=== PATIENT | male | born 1985 | race American Indian/Alaskan Native ===

== ENCOUNTER 2016-11-22 14:37 | Emergency (ER) | payer SELFPAY ==
[2016-11-22 15:35] VITALS: BP 123/95
[2016-11-22 15:57] LABS: Hemoglobin 15.1 gm/dl (11.8-15.2); Mean Corpuscular HGB Conc 33 % (32-34); Mean Corpuscular Hemoglobin 29 pg (28-32); Mean Corpuscular Volume 89 fl (84-94); Platelet Count 165 K/mm3 (140-440); Red Blood Count 5.19 M/mm3 (3.65-5.03); Red Cell Distribution Width 16.3 % (13.2-15.2); White Blood Count 4.8 K/mm3 (4.5-11.0)
[2016-11-22 16:12] LABS: Albumin 4.1 g/dL (3.9-5); Albumin/Globulin Ratio 0.8 %; BUN/Creatinine Ratio 11.37; Bilirubin,Total 0.5 mg/dL (0.1-1.2); Calcium 9.6 mg/dL (8.4-10.2); Chloride 98.3 mmol/L (98-107); Potassium 4.2 mmol/L (3.6-5.0); Total Protein 9.3 g/dL (6.3-8.2)
[2016-11-22 16:24] LABS: Bilirubin,Urine NEG (Negative); Blood,Urine NEG (Negative); Ketones,Urine TR mg/dL (Negative); Leukocyte Esterase,Urine MOD (Negative); Mucus,Urine FEW /HPF; Nitrite,Urine NEG (Negative); Urobilinogen,Urine < 2.0 mg/dL (<2.0)
[2016-11-22 18:43] LABS: Blastocytes % (Manual) 0 %; Eosinophils % (Manual) 0 % (0.0-4.3)
[2016-11-22 18:44] LABS: Anisocytosis 1+; Diff Status Complete; Platelet Estimate Consistent w Auto; Poikilocytosis 1+
== END 2016-11-22 20:35 | disposition left against medical advice (07) ==
LOC: ED 14:37
DX: R10.9 Unspecified abdominal pain (principal); R11.2 Nausea with vomiting, unspecified; Z53.21 Procedure and treatment not carried out due to patient leaving prior to being seen by health care provider
CPT/HCPCS: 36415; 80053; 81001; 83690; 85007; 85025

== ENCOUNTER 2017-09-17 09:42 | Emergency (ER) | payer SELFPAY ==
[2017-09-17 10:39] LABS: Basophils % (Auto) 0.7 % (0.0-1.8); Hematocrit 38.7 % (35.5-45.6); Hemoglobin 13.1 gm/dl (11.8-15.2); Lymphocytes # (Auto) 0.7 K/mm3 (1.2-5.4); Lymphocytes % (Auto) 17.6 % (13.4-35.0); Mean Corpuscular HGB Conc 34 % (32-34); Mean Corpuscular Hemoglobin 29 pg (28-32); Mean Corpuscular Volume 84 fl (84-94); Monocytes # (Auto) 0.6 K/mm3 (0.0-0.8); Monocytes % (Auto) 15.2 % (0.0-7.3); Platelet Count 184 K/mm3 (140-440); Red Blood Count 4.61 M/mm3 (3.65-5.03); Red Cell Distribution Width 13.6 % (13.2-15.2)
[2017-09-17 10:54] LABS: BUN/Creatinine Ratio 8; Blood Urea Nitrogen 22 mg/dL (9-20); Calcium 8.5 mg/dL (8.4-10.2); Hemolysis Index 9
--- NOTE | 2017-09-17 12:25 | XRay Report ---
ROUTINE CHEST, TWO VIEWS: HISTORY: Shortness of breath, HIV. The trachea, heart, mediastinal contour, lung colvin and bony thorax are unremarkable. IMPRESSION: Unremarkable chest x-ray. No significant change since 02/10/16.
--- NOTE | 2017-09-17 13:05 | Emergency Department Report ---
ED Chest Pain HPI - General Chief Complaint: Upper Respiratory Infection Stated Complaint: CHEST COMPLICATIONS/LUNGS HURT Time Seen by Provider: 09/17/17 12:53 Source: patient Mode of arrival: Ambulatory Limitations: No Limitations - History of Present Illness Initial Comments: Patient is 32 years old male with past medical history of chronic kidney disease that was not being followed by any kidney doctor. Patient presented with epigastric and substernal chest pain that's been going on for 3 weeks now. Patient describes his pain as a burning sensation that go all the way up to his throat. Patient denied any left-sided or right-sided chest pain no shortness of breath, no fever, no nausea or vomiting. MD Complaint: chest pain - Related Data Previous Rx's Medication Instructions Recorded Last Taken Type Fluticasone [Flonase] 2 spray NS QDAY #1 bottle 08/11/15 Unknown Rx Loratadine [Claritin] 10 mg PO DAILY #30 tablet 08/11/15 Unknown Rx Acetaminophen/Codeine [Tylenol #3] 1 tab PO Q6H PRN #10 tab 09/14/15 Unknown Rx Albuterol Sulfate [Ventolin HFA] 2 puff IH Q4H PRN #1 hfa.aer.ad 02/10/16 Unknown Rx Azithromycin [Zithromax Z-SHANI] 1 dose PO DAILY 5 Days tab 02/10/16 Unknown Rx Benzonatate [Tessalon Perles] 100 mg PO Q8HR #30 capsule 02/10/16 Unknown Rx Ibuprofen [Motrin 800 MG tab] 800 mg PO Q8HR PRN #30 tablet 02/10/16 Unknown Rx Prednisone [predniSONE 10 mg 10 mg PO .TAPER #1 tab.ds.pk 02/10/16 Unknown Rx (6-Day Pack, 21 Tabs)] Esomeprazole Magnesium [NexIUM] 40 mg PO QDAY #30 capsule. 09/17/17 Unknown Rx Allergies Allergy/AdvReac Type Severity Reaction Status Date / Time No Known Allergies Allergy Verified 11/22/16 15:32 Heart Score - HEART Score History: Slightly suspicious EKG: Non-specific Age: < 45 Risk factors: 1-2 risk factors Troponin: < normal limit HEART Score: 2 - Critical Actions Critical Actions: 0-3 pts:0.9-1.7%risk of adverse cardiac event.Candidate for discharge ED Review of Systems ROS: Stated complaint: CHEST COMPLICATIONS/LUNGS HURT Other details as noted in HPI Comment: All other systems reviewed and negative Constitutional: denies: chills, fever Respiratory: denies: cough, orthopnea, shortness of breath Cardiovascular: chest pain. denies: palpitations, dyspnea on exertion Gastrointestinal: denies: abdominal pain, nausea, vomiting ED Past Medical Hx - Past Medical History Previous Medical History?: Yes Hx Headaches / Migraines: Yes Additional medical history: HIV - Surgical History Past Surgical History?: No - Social History Smoking Status: Current Every Day Smoker Substance Use Type: Alcohol - Medications Home Medications: Home Medications Medication Instructions Recorded Confirmed Last Taken Type Fluticasone [Flonase] 2 spray NS QDAY #1 bottle 08/11/15 Unknown Rx Loratadine [Claritin] 10 mg PO DAILY #30 tablet 08/11/15 Unknown Rx Acetaminophen/Codeine [Tylenol #3] 1 tab PO Q6H PRN #10 tab 09/14/15 Unknown Rx Albuterol Sulfate [Ventolin HFA] 2 puff IH Q4H PRN #1 hfa.aer.ad 02/10/16 Unknown Rx Azithromycin [Zithromax Z-SHANI] 1 dose PO DAILY 5 Days tab 02/10/16 Unknown Rx Benzonatate [Tessalon Perles] 100 mg PO Q8HR #30 capsule 02/10/16 Unknown Rx Ibuprofen [Motrin 800 MG tab] 800 mg PO Q8HR PRN #30 tablet 02/10/16 Unknown Rx Prednisone [predniSONE 10 mg 10 mg PO .TAPER #1 tab.ds.pk 02/10/16 Unknown Rx (6-Day Pack, 21 Tabs)] Esomeprazole Magnesium [NexIUM] 40 mg PO QDAY #30 capsule.dr 09/17/17 Unknown Rx ED Physical Exam - General Limitations: No Limitations General appearance: alert, in no apparent distress - Head Head exam: Present: atraumatic, normocephalic - Eye Eye exam: Present: normal appearance, PERRL - ENT ENT exam: Present: normal exam, normal orophraynx, mucous membranes moist - Neck Neck exam: Present: normal inspection, full ROM. Absent: tenderness, meningismus - Respiratory Respiratory exam: Present: normal lung sounds bilaterally, chest wall tenderness (sternal tenderness). Absent: respiratory distress, wheezes, rales, rhonchi - Cardiovascular Cardiovascular Exam: Present: regular rate, normal rhythm, normal heart sounds - GI/Abdominal GI/Abdominal exam: Present: soft, normal bowel sounds. Absent: distended, tenderness, guarding, rebound, rigid - Extremities Exam Extremities exam: Present: normal inspection, full ROM, normal capillary refill - Back Exam Back exam: Present: normal inspection, full ROM. Absent: CVA tenderness (R), CVA tenderness (L) - Neurological Exam Neurological exam: Present: alert, oriented X3, CN II-XII intact, normal gait - Psychiatric Psychiatric exam: Present: normal affect - Skin Skin exam: Present: warm, intact, normal color ED Course Vital Signs 09/17/17 09:49 Temperature 98.7 F Pulse Rate 89 Respiratory 16 Rate Blood Pressure 122/94 O2 Sat by Pulse 98 Oximetry - Reevaluation(s) Reevaluation #1: 09/17/17 13:03 I had a lengthy discussion with the patient about his creatinine and his chronic kidney status. Patient previous creatinine was 2.9 and today is 2.7. Patient stated that he is not following with any patient for this. I discussed with him the risk of not following out with the kidney doctor. Patient understands the seriousness of his kidney issue and he stated that he will work on getting a kidney doctor very soon. Meanwhile I advised patient to avoid all NSAIDs. 09/17/17 13:05 ED Medical Decision Making - Lab Data Result diagrams: 09/17/17 10:14 09/17/17 10:14 - EKG Data -: EKG Interpreted by Me EKG shows normal: sinus rhythm Rate: normal - EKG Data When compared to previous EKG there are: no significant change - Radiology Data Radiology results: report reviewed Chest x-ray is unremarkable Critical care attestation.: If time is entered above; I have spent that time in minutes in the direct care of this critically ill patient, excluding procedure time. ED Disposition Clinical Impression: Chest pain, GERD (gastroesophageal reflux disease) Disposition: -01 TO HOME OR SELFCARE Is pt being admited?: No Condition: Stable Instructions: Chest Pain (ED), Gastroesophageal Reflux in Children (ED), Chronic Kidney Disease (ED) Prescriptions: Esomeprazole Magnesium [NexIUM] 40 mg PO QDAY #30 capsule.dr Referrals: ESTHER STEPHENSON MD [Staff Physician] - 3-5 Days
[2017-09-17 20:53] VITALS: BP 133/70
== END 2017-09-17 13:14 | disposition home or self-care (01) ==
LOC: ED 09:42
DX: K21.9 Gastro-esophageal reflux disease without esophagitis (principal); G43.909 Migraine, unspecified, not intractable, without status migrainosus; F17.200 Nicotine dependence, unspecified, uncomplicated
CPT/HCPCS: 36415; 71046; 80048; 84484; 85025; 99284

== ENCOUNTER 2020-05-01 11:39 | Observation (INO) | payer MEDICARE ==
[2020-05-01] MEDS ORDERED: levETIRAcetam 1000 MG/NS 0.75% 1,000 MG/100 ML BAG IV ONE ×2 (11:50→11:51)
--- NOTE | 2020-05-01 12:20 | XRay Report ---
CHEST 1 VIEW INDICATION / CLINICAL INFORMATION: seizure. COMPARISON: 09/17/2017 FINDINGS: SUPPORT DEVICES: Interval placement of right-sided dual-lumen dialysis catheter with its tip projecte d over the right atrium. HEART / MEDIASTINUM: Stable. LUNGS / PLEURA: Interval development of central pulmonary vascular congestion and bilateral perihilar edema. No pneumothorax. ADDITIONAL FINDINGS: No significant additional findings. IMPRESSION: 1. Interval placement of right-sided dual-lumen dialysis catheter which needs retraction approximatel y 5 cm for proper positioning. 2. Interval development of central pulmonary vascular congestion and bilateral perihilar pulmonary ed adam. Signer Name: Isaiah Bright MD Signed: 05/01/2020 12:15 PM Workstation Name: [id number]
[2020-05-01 12:34] LABS: Hematocrit 36.1 % (35.5-45.6); Hemoglobin 11.7 gm/dl (11.8-15.2); Mean Corpuscular HGB Conc 32 % (32-34); Mean Corpuscular Volume 89 fl (84-94); Platelet Count 106 K/mm3 (140-440); Red Blood Count 4.05 M/mm3 (3.65-5.03)
--- NOTE | 2020-05-01 12:39 | Emergency Department Report ---
ED General Adult HPI - General Chief complaint: Seizure Stated complaint: SEIZURE Time Seen by Provider: 05/01/20 11:48 Source: EMS Mode of arrival: Stretcher Limitations: Altered Mental Status - History of Present Illness Initial comments: Patient is a 35-year-old F Bel[place]ian male with past medical history of end-stage renal disease, HIV who is presenting status post seizure. Paramedics were called to the hospital because of the patient was complaining of headache and shortness of breath. On their arrival patient had a tonic-clonic seizure. Is questionable whether the patient has a seizure history from the bystanders there was there. He was given Ativan and Versed. Patient apparently had not had dialysis for approximately 2 weeks. Reason for being noncompliant was unknown. Is unknown any other additional history at this time. Patient is is been sedated and is postictal on his arrival. - Related Data Home Medications Medication Instructions Recorded Confirmed Last Taken Calcium Acetate 650 mg PO TID 02/20/20 04/09/20 Unknown Darunavir [Prezista] 800 mg PO DAILY 02/20/20 04/09/20 Unknown Dolutegravir [Tivicay] 50 mg PO DAILY 02/20/20 04/09/20 Unknown Ritonavir 100 mg PO DAILY 02/20/20 04/09/20 Unknown Sodium Bicarbonate 650 mg PO TID 02/20/20 04/09/20 Unknown amLODIPine 5 mg PO DAILY 02/20/20 04/09/20 Unknown Allergies Allergy/AdvReac Type Severity Reaction Status Date / Time abacavir AdvReac Unknown Unknown Verified 03/24/20 16:23 ED Review of Systems ROS: Stated complaint: SEIZURE Other details as noted in HPI Comment: Unobtainable due to pts medical conditions ED Past Medical Hx - Past Medical History Previous Medical History?: Yes Hx Hypertension: Yes Hx Heart Attack/AMI: No Hx Congestive Heart Failure: No Hx Diabetes: No Hx GERD: Yes Hx Liver Disease: No Hx Sickle Cell Disease: No Hx Headaches / Migraines: Yes Hx Seizures: Yes Hx Asthma: No Hx COPD: No Hx Tuberculosis: No Hx HIV: Yes Additional medical history: HIV, ESRD, Hemodialysis - Social History Smoking Status: Unknown if ever smoked - Medications Home Medications: Home Medications Medication Instructions Recorded Confirmed Last Taken Type Calcium Acetate 650 mg PO TID 02/20/20 04/09/20 Unknown History Darunavir [Prezista] 800 mg PO DAILY 02/20/20 04/09/20 Unknown History Dolutegravir [Tivicay] 50 mg PO DAILY 02/20/20 04/09/20 Unknown History Ritonavir 100 mg PO DAILY 02/20/20 04/09/20 Unknown History Sodium Bicarbonate 650 mg PO TID 02/20/20 04/09/20 Unknown History amLODIPine 5 mg PO DAILY 02/20/20 04/09/20 Unknown History ED Physical Exam - General Limitations: Altered Mental Status General appearance: in no apparent distress, postictal, other (Patient will localize to pain with sternal rub. He is maintaining his airway.) - Head Head exam: Present: atraumatic, normocephalic - Eye Eye exam: Present: normal appearance - ENT ENT exam: Present: mucous membranes moist - Neck Neck exam: Present: normal inspection - Respiratory Respiratory exam: Present: respiratory distress, rales. Absent: normal lung sounds bilaterally, wheezes, rhonchi - Cardiovascular Cardiovascular Exam: Present: normal rhythm, tachycardia. Absent: systolic murmur, diastolic murmur, rubs, gallop - GI/Abdominal GI/Abdominal exam: Present: soft, normal bowel sounds. Absent: distended, tenderness, guarding, rebound - Rectal Rectal exam: Present: deferred - Extremities Exam Extremities exam: Present: normal inspection - Back Exam Back exam: Present: normal inspection - Neurological Exam Neurological exam: Present: alert, altered, other (Moving all extremities) - Skin Skin exam: Present: warm, dry, intact, normal color. Absent: rash ED Course Vital Signs 05/01/20 05/01/20 05/01/20 11:42 11:46 11:53 Temperature Pulse Rate 139 H 136 H 123 H Respiratory 21 17 20 Rate Blood Pressure O2 Sat by Pulse 95 98 91 Oximetry 05/01/20 05/01/20 05/01/20 12:00 12:02 12:15 Temperature 99.1 F Pulse Rate 117 H 130 H 104 H Respiratory 23 20 12 Rate Blood Pressure 186/121 184/113 O2 Sat by Pulse 100 100 Oximetry 05/01/20 05/01/20 12:30 12:50 Temperature Pulse Rate 115 H 115 H Respiratory 19 Rate Blood Pressure 190/122 O2 Sat by Pulse 100 Oximetry ED Medical Decision Making - Lab Data Result diagrams: 05/01/20 12:04 05/01/20 12:04 Lab Results 05/01/20 05/01/20 05/01/20 Range/Units 12:04 12:04 12:04 WBC 10.2 (4.5-11.0) K/mm3 RBC 4.05 (3.65-5.03) M/mm3 Hgb 11.7 L (11.8-15.2) gm/dl Hct 36.1 (35.5-45.6) % MCV 89 (84-94) fl MCH 29 (28-32) pg MCHC 32 (32-34) % RDW 18.0 H (13.2-15.2) % Plt Count 106 L (140-440) K/mm3 Seg Neutrophils % Gis Software Developer Sodium 139 (137-145) mmol/L Potassium 7.0 H* (3.6-5.0) mmol/L Chloride 98.3 (98-107) mmol/L Carbon Dioxide 14 L (22-30) mmol/L Anion Gap 34 mmol/L BUN 109 H (9-20) mg/dL Creatinine 29.9 H (0.8-1.3) mg/dL Estimated GFR 2 ml/min BUN/Creatinine Ratio 4 % Glucose 95 (75-100) mg/dL Calcium 10.2 (8.4-10.2) mg/dL Total Bilirubin 0.30 (0.1-1.2) mg/dL AST 15 (5-40) units/L ALT 6 L (7-56) units/L Alkaline Phosphatase 64 (35-129) units/L Total Protein 8.1 (6.3-8.2) g/dL Albumin 3.6 L (3.9-5) g/dL Albumin/Globulin Ratio 0.8 % Urine Color (Yellow) Urine Turbidity (Clear) Urine pH (5.0-7.0) Ur Specific [place] (1.003-1.030) Urine Protein (Negative) mg/dL Urine Glucose (UA) (Negative) mg/dL Urine Ketones (Negative) mg/dL Urine Blood (Negative) Urine Nitrite (Negative) Urine Bilirubin (Negative) Urine Urobilinogen (<2.0) mg/dL Ur Leukocyte Esterase (Negative) Urine WBC (Auto) (0.0-6.0) /HPF Urine RBC (Auto) (0.0-6.0) /HPF U Epithel Cells (Auto) (0-13.0) /HPF Urine Opiates Screen Urine Methadone Screen Ur Barbiturates Screen Ur Phencyclidine Scrn Ur Amphetamines Screen U Benzodiazepines Scrn Urine Cocaine Screen U Marijuana (THC) Screen Drugs of Abuse Note Plasma/Serum Alcohol < 0.01 (0-0.07) % 05/01/20 05/01/20 Range/Units 12:15 12:15 WBC (4.5-11.0) K/mm3 RBC (3.65-5.03) M/mm3 Hgb (11.8-15.2) gm/dl Hct (35.5-45.6) % MCV (84-94) fl MCH (28-32) pg MCHC (32-34) % RDW (13.2-15.2) % Plt Count (140-440) K/mm3 Seg Neutrophils % Sodium (137-145) mmol/L Potassium (3.6-5.0) mmol/L Chloride (98-107) mmol/L Carbon Dioxide (22-30) mmol/L Anion Gap mmol/L BUN (9-20) mg/dL Creatinine (0.8-1.3) mg/dL Estimated GFR ml/min BUN/Creatinine Ratio % Glucose (75-100) mg/dL Calcium (8.4-10.2) mg/dL Total Bilirubin (0.1-1.2) mg/dL AST (5-40) units/L ALT (7-56) units/L Alkaline Phosphatase (35-129) units/L Total Protein (6.3-8.2) g/dL Albumin (3.9-5) g/dL Albumin/Globulin Ratio % Urine Color Yellow (Yellow) Urine Turbidity Clear (Clear) Urine pH 7.0 (5.0-7.0) Ur Specific [place] 1.013 (1.003-1.030) Urine Protein >500 (Negative) mg/dL Urine Glucose (UA) 150 (Negative) mg/dL Urine Ketones Neg (Negative) mg/dL Urine Blood Sm (Negative) Urine Nitrite Neg (Negative) Urine Bilirubin Neg (Negative) Urine Urobilinogen < 2.0 (<2.0) mg/dL Ur Leukocyte Esterase Tr (Negative) Urine WBC (Auto) 16.0 H (0.0-6.0) /HPF Urine RBC (Auto) 3.0 (0.0-6.0) /HPF U Epithel Cells (Auto) < 1.0 (0-13.0) /HPF Urine Opiates Screen Negative Urine Methadone Screen Negative Ur Barbiturates Screen Negative Ur Phencyclidine Scrn Negative Ur Amphetamines Screen Negative U Benzodiazepines Scrn Negative Urine Cocaine Screen Positive U Marijuana (THC) Screen Negative Drugs of Abuse Note Disclamer Plasma/Serum Alcohol (0-0.07) % no hemolysis - EKG Data -: EKG Interpreted by Fl - EKG Data 05/01/20 13:21 EKG shows a sinus tachycardia rate of 123. [place] is normal intervals are normal. There is evidence of LVH. Peak T waves in V3 and V4. Time of interpretation 1155 - Radiology Data Patient: HOLLY PRESTON MR# : [id number] : 1985 Acct:[id number] Age/Sex: 35 / M ADM Date: 05/01/20 Loc: ED Attending Dr: Ordering Physician: BHUMIKA DOZIER MD Date of Service: 05/01/20 Procedure(s): XR chest 1V ap Accession Number(s): [id number] cc: BHUMIKA DOZIER MD Fluoro Time In Minutes: CHEST 1 VIEW INDICATION / CLINICAL INFORMATION: seizure. COMPARISON: 09/17/2017 FINDINGS: SUPPORT DEVICES: Interval placement of right-sided dual-lumen dialysis catheter with its tip projected over the right atrium. HEART / MEDIASTINUM: Stable. LUNGS / PLEURA: Interval development of central pulmonary vascular congestion and bilateral perihilar edema. No pneumothorax. ADDITIONAL FINDINGS: No significant additional findings. IMPRESSION: 1. Interval placement of right-sided dual-lumen dialysis catheter which needs retraction approximately 5 cm for proper positioning. 2. Interval development of central pulmonary vascular congestion and bilateral perihilar pulmonary edema. Signer Name: Isaiah Bright MD Signed: 05/01/2020 12:15 PM Workstation Name: [id number] - Medical Decision Making Patient is remained in a postictal state during his ER visit. Patient was given 2 mg of Ativan and 5 mg of Versed prior to his arrival. Patient noted to be hypertensive was given labetalol. Patient is placed on oxygen for O2 sat of 92% on room air. Patient loaded with Keppra. Patient is potassium was elevated at 7 with no hemolysis and his hyperkalemia will be treated. Nephrology has been consulted and will dialyze the patient. CT head has been performed I do not see any evidence of any intracranial hemorrhage. Patient will be admitted to hospitalist service. Critical Care Time: Yes (30) Critical care attestation.: If time is entered above; I have spent that time in minutes in the direct care of this critically ill patient, excluding procedure time. ED Disposition Clinical Impression: Seizure, Post-ictal confusion, End-stage renal disease needing dialysis, Hyperkalemia Pulmonary edema Qualifiers: Chronicity: acute Qualified Code(s): J81.0 - Acute pulmonary edema Cocaine intoxication Qualifiers: Complication of substance-induced condition: with unspecified complication Qualified Code(s): F14.929 - Cocaine use, unspecified with intoxication, unspecified Disposition: DC-09 OP ADMIT IP TO THIS HOSP Is pt being admited?: Yes Does the pt Need Aspirin: No Condition: Stable Time of Disposition: 13:28
[2020-05-01 12:47] LABS: Amphetamine Screen,Urine Negative; Benzodiazepines Screen,Urine Negative; Cannabinoid Screen,Urine Negative; Methadone Screen,Urine Negative; Opiate Screen,Urine Negative
[2020-05-01 12:56] LABS: Albumin 3.6 g/dL (3.9-5); Calcium 10.2 mg/dL (8.4-10.2)
[2020-05-01 13:03] LABS: Cocaine Screen,Urine Positive
[2020-05-01 13:04] LABS: Bilirubin,Urine NEG (Negative); Blood,Urine SM (Negative); Color,Urine Yellow (Yellow); Urobilinogen,Urine < 2.0 mg/dL (<2.0)
[2020-05-01] MEDS ORDERED: SODIUM BICARB 8.4% 50 MEQ/50 ML SYRINGE IV ONE (13:04)
[2020-05-01] MEDS ORDERED: ALBUTEROL 2.5 MG/3 ML NEBU IH ONE (13:04)
[2020-05-01] MEDS ORDERED: DEXTROSE 50% IN WATER (25GM) 50 ML SYRINGE IV ONE (13:04)
[2020-05-01] MEDS ORDERED: INSULIN REGULAR, HUMAN 100 UNIT/ML 3ML VIAL IV ONE (13:04)
[2020-05-01 13:08] LABS: Protein,Urine >500 mg/dL (Negative)
--- NOTE | 2020-05-01 13:14 | Cat Scan Report ---
CT HEAD WITHOUT CONTRAST INDICATION: seizure TECHNIQUE: All CT scans at this location are performed using CT dose reduction for ALARA by means of automated exposure control. COMPARISON: 02/10/2016 FINDINGS: BRAIN: No hemorrhage or mass effect are seen. No evidence of acute infarction is noted. ORBITS: Normal as visualized. SOFT TISSUES OF HEAD: Slight soft tissue swelling is seen in the upper right vertex scalp without und erlying fracture CALVARIUM: Normal. VISUALIZED PARANASAL SINUSES AND MASTOID AIR CELLS: Clear. ADDITIONAL FINDINGS: None. IMPRESSION: No acute intracranial abnormality. Signer Name: Cachorro Tejada MD Signed: 05/01/2020 1:10 PM Workstation Name: [id number]
[2020-05-01] MEDS ORDERED: SODIUM CHLORIDE 0.9% 100 ML IV PRN (13:15)
[2020-05-01] MEDS: CALCIUM CHLORIDE 1,000 MG in SODIUM CHLORIDE 0.9% 100 ML IV ONE ×2 (13:24→14:04)
[2020-05-01] MEDS ORDERED: INSULIN REGULAR, HUMAN 100 UNITS/1 ML ONE (13:30)
[2020-05-01 14:17] LABS: Hepatitis B Surface Antigen Non-Reactive (Negative); Hepatitis C Virus Antibody Non-Reactive (NonReactive)
[2020-05-01 14:53] LABS: Basophils % (Manual) 0 % (0.0-1.8); Total Cells Counted 100
[2020-05-01 14:54] LABS: Anisocytosis Few; Platelet Estimate Consistent w Auto
--- NOTE | 2020-05-01 14:56 | History and Physical Report ---
History of Present Illness Date of examination: 05/01/20 Date of admission: 05/01/20 14:23 Chief complaint: Seizures/hyperkalemia History of present illness: When I evaluated the patient patient was lethargic noncommunicative , unable to give history , no family available Details are obtained from ER note 35-year-old -[place] male patient with significant history of end-stage renal disease on hemodialysis HIV on antiretroviral medications Hypertension, cocaine use presented to the emergency room with history of seizure episode, patient was postictal when seen by the emergency room CT head without contrast was negative for acute abnormality, patient received IV Keppra, patient also had severe hyperkalemia , and very high creatinine evaluated by nephrology, and was scheduled for an emergency hemodialysis As per ER note patient has missed his dialysis for 2 weeks for unknown reason As per records patient complained to the EMS people of headache and shortness of breath, and route patient developed tonic-clonic seizures Not sure with the patient has history of seizures prior to this episode. I have seen and examined the patient in the dialysis unit receiving hemodialysis. Patient is combative requiring restraints and confused Unable to get any history from him Vital signs are stable, patient is in mild distress Past History Past Medical History: dialysis, ESRD, GERD, HIV/AIDS, hypertension, migraines, seizures Past Surgical History: Other (AV fistula) Social history: other (Cocaine use) Family history: no significant family history Medications and Allergies Allergies Allergy/AdvReac Type Severity Reaction Status Date / Time abacavir AdvReac Unknown Unknown Verified 03/24/20 16:23 Home Medications Medication Instructions Recorded Confirmed Last Taken Type Calcium Acetate 650 mg PO TID 02/20/20 04/09/20 Unknown History Darunavir [Prezista] 800 mg PO DAILY 02/20/20 04/09/20 Unknown History Dolutegravir [Tivicay] 50 mg PO DAILY 02/20/20 04/09/20 Unknown History Ritonavir 100 mg PO DAILY 02/20/20 04/09/20 Unknown History Sodium Bicarbonate 650 mg PO TID 02/20/20 04/09/20 Unknown History amLODIPine 5 mg PO DAILY 02/20/20 04/09/20 Unknown History Active Meds: Active Medications Sodium Chloride (Nacl 0.9%) 100 mls @ 999 mls/hr IV ALTHEA PRN PRN Reason: Hypotension Review of Systems ROS unobtainable: due to mental status Exam - Constitutional Vitals: Temp Pulse Resp BP Pulse Ox 99.1 F 106 H 18 183/110 99 05/01/20 12:02 05/01/20 14:17 05/01/20 14:17 05/01/20 14:00 05/01/20 14:17 General appearance: Present: severe distress, other (Combative ,noncommunicative) - EENT Eyes: Present: PERRL, EOM intact - Neck Neck: Present: supple, normal ROM - Respiratory Respiratory effort: normal Respiratory: bilateral: diminished, rales - Cardiovascular Rhythm: regular Heart Sounds: Present: S1 & S2 - Extremities Extremities: no ischemia, No edema - Abdominal General gastrointestinal: Present: soft, non-tender, non-distended, normal bowel sounds - Integumentary Integumentary: Present: clear, warm - Musculoskeletal Musculoskeletal: other (Noncommunicative combative) - Psychiatric Psychiatric: agitated, other (Confused and combative) - Neurologic Neurologic: moves all extremities Results - Labs CBC & Chem 7: 05/01/20 12:04 05/01/20 12:04 Labs: Abnormal lab results 05/01/20 05/01/20 05/01/20 Range/Units 12:04 12:04 12:15 Hgb 11.7 L (11.8-15.2) gm/dl RDW 18.0 H (13.2-15.2) % Plt Count 106 L (140-440) K/mm3 Seg Neuts % (Manual) 91.0 H (40.0-70.0) % Lymphocytes % (Manual) 6.0 L (13.4-35.0) % Seg Neutrophils # Man 9.3 H (1.8-7.7) K/mm3 Lymphocytes # (Manual) 0.6 L (1.2-5.4) K/mm3 Potassium 7.0 H* (3.6-5.0) mmol/L Carbon Dioxide 14 L (22-30) mmol/L BUN 109 H (9-20) mg/dL Creatinine 29.9 H (0.8-1.3) mg/dL ALT 6 L (7-56) units/L Albumin 3.6 L (3.9-5) g/dL Urine WBC (Auto) 16.0 H (0.0-6.0) /HPF Assessment and Plan --Severe metabolic encephalopathy; Multifactorial, seizures, postictal stage Hyperkalemia, metabolic acidosis Treat the underlying cause, neurochecks Supportive care CT head; no acute abnormality noted --Seizure disorder; probably new onset Seizure precautions, CT head negative Ativan as needed, IV Keppra thousand twice daily Neurology service not available, consult neurology on Sunday Check EEG, patient cannot drive until cleared by neurology --Hyperkalemia; potassium 7.0 Secondary to end-stage renal disease Start hemodialysis, nephrology following --End-stage renal disease; on hemodialysis Not sure if patient was compliant Very high creatinine, nephrology following Start dialysis today, HD per schedule --Cocaine abuse; We will activities counselor the patient when stable Supportive care --Hypertension; moderate control Continue current antihypertensives, PRN medications --History of HIV; on antiretrovirals Will resume appropriate medications Consider ID evaluation if needed --Medical noncompliance; Patient is noncompliant with medications, diet Hemodialysis, follow-up visits We will activities counselor the patient and he is more stable the importance of adhering to the treatment plan --DC planning per case management --DVT prophylaxis; Heparin renal dose --Full CODE STATUS; We will closely monitor the patient and adjust the management as needed Lead Python Developer recommendations noted and appreciated We will try to contact the family for more information The high probability of a clinically significant, sudden or life threatening de terioration of the [Renal, SUPERVISORY AIR INTERCEPT CONTROLLER, ID, metabolic ] system(s) required my full and direct attention, in tervention and personal management. The aggregate critical care time was [32] minutes. This time is in addition to time spent performing reported procedures but includes the following: [x] Data Review and interpretation [x] Patient assessment and monitoring of vital signs [x] Documentation [x] Medication orders and management
[2020-05-01] MEDS ORDERED: LORazepam 2 MG/ML VIAL IV PRN (15:05)
--- NOTE | 2020-05-01 19:56 | Consultation ---
History of Present Illness - Reason for Consult Consult date: 05/01/20 end stage renal disease, hyperkalemia, metabolic acidosis - History of Present Illness The patient is a 35 YO AAM with history significant for HTN, ESRD on hemodialysis, HIV on antiretroviral medications and Cocaine use presented to [facility] ED with history of seizure episode. As per ER note patient has missed his dialysis for 2 weeks for unknown reason. Patient complained to the EMS of headache and shortness of breath, and route patient developed tonic-clonic seizures. In the ED patient was postictal, lethargic, noncommunicative and no family available hence unable to get any history. CT head without contrast was negative for acute abnormality. Patient received IV Keppra. Labs significant for hyperkalemia, metabolic acidosis and very high creatinine level. Nephrology was consulted for further evaluation and treatment. Past History Past Medical History: dialysis, ESRD, GERD, HIV/AIDS, hypertension, migraines, seizures Past Surgical History: Other (AV fistula) Social history: other (Cocaine use) Family history: no significant family history Medications and Allergies Allergies Allergy/AdvReac Type Severity Reaction Status Date / Time abacavir AdvReac Unknown Unknown Verified 03/24/20 16:23 Home Medications Medication Instructions Recorded Confirmed Last Taken Type Calcium Acetate 650 mg PO TID 02/20/20 04/09/20 Unknown History Darunavir [Prezista] 800 mg PO DAILY 02/20/20 04/09/20 Unknown History Dolutegravir [Tivicay] 50 mg PO DAILY 02/20/20 04/09/20 Unknown History Ritonavir 100 mg PO DAILY 02/20/20 04/09/20 Unknown History Sodium Bicarbonate 650 mg PO TID 02/20/20 04/09/20 Unknown History amLODIPine 5 mg PO DAILY 02/20/20 04/09/20 Unknown History Active Meds: Active Medications Calcium Acetate (Phoslo) 667 mg PO TIDWM AWA Heparin Sodium (Porcine) (Heparin) 5,000 unit SUB-Q Q12HR AWA Hydralazine HCl (Apresoline) 25 mg PO Q8HR AWA Sodium Chloride (Nacl 0.9%) 100 mls @ 999 mls/hr IV ALTHEA PRN PRN Reason: Hypotension Levetiracetam 1,000 mg/ (Dextrose) 110 mls @ 400 mls/hr IV Q12HR AWA Labetalol HCl (Labetalol) 10 mg IV Q4H PRN PRN Reason: Hypertension Last Admin: 05/01/20 19:06 Dose: 10 mg Documented by: Lorazepam (Ativan) 2 mg IV Q1H PRN PRN Reason: Seizures Nifedipine (Procardia Xl) 30 mg PO Q12HR AWA Pantoprazole Sodium (Protonix) 40 mg IV QDAY AWA Sodium Bicarbonate (Sodium Bicarbonate) 650 mg PO TID AWA Review of Systems ROS unobtainable: due to mental status Exam - Vital Signs Vital signs: Vital Signs Pulse Resp Pulse Ox 139 H 21 95 05/01/20 11:42 05/01/20 11:42 05/01/20 11:42 Results - Lab Results 05/01/20 12:04 05/01/20 12:04 Most recent lab results Calcium 10.2 mg/dL (8.4-10.2) 05/01/20 12:04 Assessment and Plan 1. ESRD: Patient is on maintenance hemodialysis three times a week. Currently his outpatient dialysis unit information was unavailable. Hemodialysis: 05/01. 2. FEN: Hyperkalemia, HD today. Metabolic acidosis, HD today. Monitor lytes and volume status. 3. Seizure: Keppra. 4. Uncontroleld Hypertension: UF with HD. Started on Nifedipine and Monitor BP. UF with HD. 5. Encephalopathy, POA: Likely post-ictal. 6. Anemia, POA: Likely 2/2 ESRD. Examination: The patient was not examined today. However the current and previous medical records are reviewed in detail as are laboratory and imaging data reviewed when appropriate. Medications being given are also reviewed. In addition the case has been discussed with the attending hospitalist when needed.Renalrecommendations as above. Total time spent 40 min.
[2020-05-01] MEDS: SODIUM BICARBONATE 650 MG TAB PO SCH (21:52)
[2020-05-01] MEDS: hydrALAZINE 25 MG TAB PO SCH (21:53)
[2020-05-01] MEDS: HEPARIN 5,000 UNIT/1 ML VIAL SUB-Q SCH (21:53)
[2020-05-01] MEDS: NIFEdipine XL 30 MG TAB PO SCH (21:53)
[2020-05-02] MEDS: levETIRAcetam 1,000 MG in DEXTROSE 5% IN WATER 100 ML IV SCH ×2 (01:02→10:07)
[2020-05-02 05:24] LABS: Basophils # (Auto) 0.1 K/mm3 (0.0-0.1); Basophils % (Auto) 1.1 % (0.0-1.8); Eosinophils # (Auto) 0.1 K/mm3 (0.0-0.4); Eosinophils % (Auto) 1.4 % (0.0-4.3); Hematocrit 37.9 % (35.5-45.6); Hemoglobin 12.8 gm/dl (11.8-15.2); Lymphocytes # (Auto) 0.9 K/mm3 (1.2-5.4); Lymphocytes % (Auto) 11.4 % (13.4-35.0); Mean Corpuscular HGB Conc 34 % (32-34); Mean Corpuscular Volume 87 fl (84-94); Monocytes # (Auto) 0.9 K/mm3 (0.0-0.8); Monocytes % (Auto) 10.9 % (0.0-7.3); Platelet Count 100 K/mm3 (140-440); Red Blood Count 4.35 M/mm3 (3.65-5.03); Red Cell Distribution Width 17.7 % (13.2-15.2)
[2020-05-02 06:00] LABS: Calcium 10.2 mg/dL (8.4-10.2)
[2020-05-02] MEDS: CALCIUM ACETATE 667 MG CAP PO SCH ×4 (07:39→12:13)
[2020-05-02] MEDS: hydrALAZINE 25 MG TAB PO SCH ×3 (07:46→14:44)
[2020-05-02] MEDS: SODIUM BICARBONATE 650 MG TAB PO SCH ×3 (07:47→14:44)
--- NOTE | 2020-05-02 09:05 | Progress Note ---
Assessment and Plan Assessment and plan: --Severe metabolic encephalopathy; Multifactorial, seizures, postictal stage Hyperkalemia, metabolic acidosis Treat the underlying cause, neurochecks Supportive care CT head; no acute abnormality noted --Seizure disorder; probably new onset Seizure precautions, CT head negative Ativan as needed, IV Keppra thousand twice daily Neurology service not available, consult neurology on Sunday Check EEG, patient cannot drive until cleared by neurology --Hyperkalemia; potassium 7.0 Secondary to end-stage renal disease Start hemodialysis, nephrology following --End-stage renal disease; on hemodialysis Not sure if patient was compliant Very high creatinine, nephrology following Start dialysis today, HD per schedule --Cocaine abuse; We will residential treatment counselor the patient when stable Supportive care --Hypertension; moderate control Continue current antihypertensives, PRN medications --History of HIV; on antiretrovirals Will resume appropriate medications Consider ID evaluation if needed --Medical noncompliance; Patient is noncompliant with medications, diet Hemodialysis, follow-up visits We will residential treatment counselor the patient and he is more stable the importance of adhering to the treatment plan --DC planning per case management --DVT prophylaxis; Heparin renal dose --Full CODE STATUS; We will closely monitor the patient and adjust the management as needed Park Interpretive Ranger recommendations noted and appreciated We will try to contact the family for more information The high probability of a clinically significant, sudden or life threatening deterioration of the [Renal, SECURITY STRATEGIST, ID, metabolic ] system(s) required my full and direct attention, intervention and personal management. The aggregate critical care time was [32] minutes. This time is in addition to time spent performing reported procedures but includes the following: [x] Data Review and interpretation [x] Patient assessment and monitoring of vital signs [x] Documentation [x] Medication orders and management Medical critical care time 35 minutes History Interval history: I have seen and examined this morning at bedside in [facility] Patient's chart reviewed Patient is more alert and awake Responding appropriately Very angry for being in the hospital Refusing all medications Wanted to leave AGAINST MEDICAL ADVICE Vital signs reviewed Hospitalist Physical - Constitutional Vitals: Temp Pulse Resp BP Pulse Ox 98.5 F 77 14 151/110 99 05/02/20 04:00 05/02/20 03:09 05/02/20 04:00 05/02/20 03:09 05/02/20 04:00 General appearance: Present: no acute distress, well-nourished, other (Combative ,noncommunicative) - EENT Eyes: Present: PERRL, EOM intact - Neck Neck: Present: supple, normal ROM - Respiratory Respiratory effort: normal Respiratory: bilateral: diminished, negative: rales, rhonchi, wheezing - Cardiovascular Rhythm: regular Heart Sounds: Present: S1 & S2 - Extremities Extremities: no ischemia, pulses intact - Abdominal General gastrointestinal: soft, non-tender, non-distended, normal bowel sounds - Integumentary Integumentary: Present: clear, warm - Psychiatric Psychiatric: appropriate mood/affect, cooperative - Neurologic Neurologic: moves all extremities Results - Labs CBC & Chem 7: 05/02/20 04:57 05/02/20 04:57 Labs: Laboratory Last Values WBC 8.0 K/mm3 (4.5-11.0) 05/02/20 04:57 RBC 4.35 M/mm3 (3.65-5.03) 05/02/20 04:57 Hgb 12.8 gm/dl (11.8-15.2) 05/02/20 04:57 Hct 37.9 % (35.5-45.6) 05/02/20 04:57 MCV 87 fl (84-94) 05/02/20 04:57 MCH 29 pg (28-32) 05/02/20 04:57 MCHC 34 % (32-34) 05/02/20 04:57 RDW 17.7 % (13.2-15.2) H 05/02/20 04:57 Plt Count 100 K/mm3 (140-440) L 05/02/20 04:57 Lymph % (Auto) 11.4 % (13.4-35.0) L 05/02/20 04:57 [place] % (Auto) 10.9 % (0.0-7.3) H 05/02/20 04:57 Eos % (Auto) 1.4 % (0.0-4.3) 05/02/20 04:57 Baso % (Auto) 1.1 % (0.0-1.8) 05/02/20 04:57 Lymph # (Auto) 0.9 K/mm3 (1.2-5.4) L 05/02/20 04:57 [place] # (Auto) 0.9 K/mm3 (0.0-0.8) H 05/02/20 04:57 Eos # (Auto) 0.1 K/mm3 (0.0-0.4) 05/02/20 04:57 Baso # (Auto) 0.1 K/mm3 (0.0-0.1) 05/02/20 04:57 Add Manual Diff Complete 05/01/20 12:04 Total Counted 100 05/01/20 12:04 Seg Neutrophils % 75.2 % (40.0-70.0) H 05/02/20 04:57 Seg Neuts % (Manual) 91.0 % (40.0-70.0) H 05/01/20 12:04 Band Neutrophils % 0 % 05/01/20 12:04 Lymphocytes % (Manual) 6.0 % (13.4-35.0) L 05/01/20 12:04 Reactive Lymphs % (Man) 0 % 05/01/20 12:04 Monocytes % (Manual) 2.0 % (0.0-7.3) 05/01/20 12:04 Eosinophils % (Manual) 1.0 % (0.0-4.3) 05/01/20 12:04 Basophils % (Manual) 0 % (0.0-1.8) 05/01/20 12:04 Metamyelocytes % 0 % 05/01/20 12:04 Myelocytes % 0 % 05/01/20 12:04 Promyelocytes % 0 % 05/01/20 12:04 Blast Cells % 0 % 05/01/20 12:04 Nucleated RBC % Not Reportable 05/01/20 12:04 Seg Neutrophils # 6.0 K/mm3 (1.8-7.7) 05/02/20 04:57 Seg Neutrophils # Man 9.3 K/mm3 (1.8-7.7) H 05/01/20 12:04 Band Neutrophils # 0.0 K/mm3 05/01/20 12:04 Lymphocytes # (Manual) 0.6 K/mm3 (1.2-5.4) L 05/01/20 12:04 Abs React Lymphs (Man) 0.0 K/mm3 05/01/20 12:04 Monocytes # (Manual) 0.2 K/mm3 (0.0-0.8) 05/01/20 12:04 Eosinophils # (Manual) 0.1 K/mm3 (0.0-0.4) 05/01/20 12:04 Basophils # (Manual) 0.0 K/mm3 (0.0-0.1) 05/01/20 12:04 Metamyelocytes # 0.0 K/mm3 05/01/20 12:04 Myelocytes # 0.0 K/mm3 05/01/20 12:04 Promyelocytes # 0.0 K/mm3 05/01/20 12:04 Blast Cells # 0.0 K/mm3 05/01/20 12:04 WBC Morphology Not Reportable 05/01/20 12:04 Hypersegmented Neuts Not Reportable 05/01/20 12:04 Hyposegmented Neuts Not Reportable 05/01/20 12:04 Hypogranular Neuts Not Reportable 05/01/20 12:04 Smudge Cells Not Reportable 05/01/20 12:04 Toxic Granulation Not Reportable 05/01/20 12:04 Toxic Vacuolation Not Reportable 05/01/20 12:04 Dohle Bodies Not Reportable 05/01/20 12:04 Pelger-Huet Anomaly Not Reportable 05/01/20 12:04 Red Rods Not Reportable 05/01/20 12:04 Platelet Estimate Consistent w auto 05/01/20 12:04 Clumped Platelets Not Reportable 05/01/20 12:04 Plt Clumps, EDTA Not Reportable 05/01/20 12:04 Large Platelets Not Reportable 05/01/20 12:04 Giant Platelets Not Reportable 05/01/20 12:04 Platelet Satelliting Not Reportable 05/01/20 12:04 Plt Morphology Comment Not Reportable 05/01/20 12:04 RBC Morphology Not Reportable 05/01/20 12:04 Dimorphic RBCs Not Reportable 05/01/20 12:04 Polychromasia Not Reportable 05/01/20 12:04 Hypochromasia Not Reportable 05/01/20 12:04 Poikilocytosis Not Reportable 05/01/20 12:04 Anisocytosis Few 05/01/20 12:04 Microcytosis Few 05/01/20 12:04 Macrocytosis Not Reportable 05/01/20 12:04 Spherocytes Not Reportable 05/01/20 12:04 Pappenheimer Bodies Not Reportable 05/01/20 12:04 Sickle Cells Not Reportable 05/01/20 12:04 Target Cells Not Reportable 05/01/20 12:04 Tear Drop Cells Not Reportable 05/01/20 12:04 Ovalocytes Not Reportable 05/01/20 12:04 Helmet Cells Not Reportable 05/01/20 12:04 [place] Bodies Not Reportable 05/01/20 12:04 [place] Rings Not Reportable 05/01/20 12:04 [place] Cells Not Reportable 05/01/20 12:04 Bite Cells Not Reportable 05/01/20 12:04 Crenated Cell Not Reportable 05/01/20 12:04 Elliptocytes Not Reportable 05/01/20 12:04 Acanthocytes (Spur) Not Reportable 05/01/20 12:04 Rouleaux Not Reportable 05/01/20 12:04 Hemoglobin C Crystals Not Reportable 05/01/20 12:04 Schistocytes Not Reportable 05/01/20 12:04 Malaria parasites Not Reportable 05/01/20 12:04 Benji Bodies Not Reportable 05/01/20 12:04 Hem Pathologist Commnt No 05/01/20 12:04 Sodium 135 mmol/L (137-145) L 05/02/20 04:57 Potassium 5.8 mmol/L (3.6-5.0) H 05/02/20 04:57 Chloride 92.7 mmol/L (98-107) L 05/02/20 04:57 Carbon Dioxide 22 mmol/L (22-30) D 05/02/20 04:57 Anion Gap 26 mmol/L 05/02/20 04:57 BUN 49 mg/dL (9-20) H 05/02/20 04:57 Creatinine 16.9 mg/dL (0.8-1.3) H 05/02/20 04:57 Estimated GFR 4 ml/min 05/02/20 04:57 BUN/Creatinine Ratio 3 % 05/02/20 04:57 Glucose 78 mg/dL (75-100) 05/02/20 04:57 Calcium 10.2 mg/dL (8.4-10.2) 05/02/20 04:57 Magnesium 2.10 mg/dL (1.7-2.3) 05/02/20 04:57 Total Bilirubin 0.30 mg/dL (0.1-1.2) 05/01/20 12:04 AST 15 units/L (5-40) 05/01/20 12:04 ALT 6 units/L (7-56) L 05/01/20 12:04 Alkaline Phosphatase 64 units/L (35-129) 05/01/20 12:04 Total Protein 8.1 g/dL (6.3-8.2) 05/01/20 12:04 Albumin 3.6 g/dL (3.9-5) L 05/01/20 12:04 Albumin/Globulin Ratio 0.8 % 05/01/20 12:04 Urine Color Yellow (Yellow) 05/01/20 12:15 Urine Turbidity Clear (Clear) 05/01/20 12:15 Urine pH 7.0 (5.0-7.0) 05/01/20 12:15 Ur Specific [place] 1.013 (1.003-1.030) 05/01/20 12:15 Urine Protein >500 mg/dL (Negative) 05/01/20 12:15 Urine Glucose (UA) 150 mg/dL (Negative) 05/01/20 12:15 Urine Ketones Neg mg/dL (Negative) 05/01/20 12:15 Urine Blood Sm (Negative) 05/01/20 12:15 Urine Nitrite Neg (Negative) 05/01/20 12:15 Urine Bilirubin Neg (Negative) 05/01/20 12:15 Urine Urobilinogen < 2.0 mg/dL (<2.0) 05/01/20 12:15 Ur Leukocyte Esterase Tr (Negative) 05/01/20 12:15 Urine WBC (Auto) 16.0 /HPF (0.0-6.0) H 05/01/20 12:15 Urine RBC (Auto) 3.0 /HPF (0.0-6.0) 05/01/20 12:15 U Epithel Cells (Auto) < 1.0 /HPF (0-13.0) 05/01/20 12:15 Urine Opiates Screen Negative 05/01/20 12:15 Urine Methadone Screen Negative 05/01/20 12:15 Ur Barbiturates Screen Negative 05/01/20 12:15 Ur Phencyclidine Scrn Negative 05/01/20 12:15 Ur Amphetamines Screen Negative 05/01/20 12:15 U Benzodiazepines Scrn Negative 05/01/20 12:15 Urine Cocaine Screen Positive 05/01/20 12:15 U Marijuana (THC) Screen Negative 05/01/20 12:15 Drugs of Abuse Note Disclamer 05/01/20 12:15 Plasma/Serum Alcohol < 0.01 % (0-0.07) 05/01/20 12:04 Hepatitis A IgM Ab Non-reactive (NonReactive) 05/01/20 12:04 Hep Bs Antigen Non-reactive (Negative) 05/01/20 12:04 Hep B Core IgM Ab Non-reactive (NonReactive) 05/01/20 12:04 Hepatitis C Antibody Non-reactive (NonReactive) 05/01/20 12:04 [place]/IV: Voiding Method Incontinent IV Catheter Type [Right VAS Cath Subclavian] IV Catheter Type [Left Peripheral IV Antecubital] Active Medications - Current Medications Current Medications: Generic Name Dose Route Start Last Admin Trade Name Freq PRN Reason Stop Dose Admin Calcium Acetate 667 mg 05/01/20 17:00 05/02/20 07:53 Phoslo PO Not Given TIDWM AWA Heparin Sodium (Porcine) 5,000 unit 05/01/20 22:00 05/01/20 21:53 Heparin SUB-Q 5,000 unit Q12HR AWA Administration Hydralazine HCl 25 mg 05/01/20 22:00 05/01/20 21:53 Apresoline PO Not Given Q8HR AWA Sodium Chloride 100 mls @ 999 mls/hr 05/01/20 13:15 Nacl 0.9% IV ALTHEA PRN Hypotension Levetiracetam 1,000 mg/ 110 mls @ 400 mls/hr 05/01/20 22:00 05/02/20 01:02 Dextrose IV 400 mls/hr Q12HR AWA Administration Calcium Chloride 1,000 mg/ 110 mls @ 330 mls/hr 05/02/20 09:30 Sodium Chloride IV 05/02/20 09:49 ONCE ONE Labetalol HCl 10 mg 05/01/20 15:08 05/02/20 00:36 Labetalol IV 10 mg Q4H PRN Administration Hypertension Lorazepam 2 mg 05/01/20 15:05 05/01/20 20:26 Ativan IV 2 mg Q1H PRN Administration Seizures Nifedipine 30 mg 05/01/20 22:00 05/01/20 21:53 Procardia Xl PO Not Given Q12HR AWA Pantoprazole Sodium 40 mg 05/02/20 10:00 Protonix IV QDAY AWA Sodium Bicarbonate 650 mg 05/01/20 20:00 05/01/20 21:52 Sodium Bicarbonate PO Not Given TID AWA
[2020-05-02] MEDS ORDERED: CALCIUM CHLORIDE 1,000 MG in SODIUM CHLORIDE 0.9% 100 ML IV ONE (09:30)
[2020-05-02] MEDS ORDERED: amLODIPine 5 MG TAB PO SCH (10:00)
[2020-05-02] MEDS ORDERED: PANTOPRAZOLE 40 MG INJ IV SCH (10:00)
[2020-05-02] MEDS: NIFEdipine XL 30 MG TAB PO SCH (10:07)
[2020-05-02] MEDS: HEPARIN 5,000 UNIT/1 ML VIAL SUB-Q SCH ×2 (10:07→11:07)
--- NOTE | 2020-05-02 12:00 | Progress Note ---
Assessment and Plan 1. ESRD: Patient is on maintenance hemodialysis three times a week, TTS schedule. Last outpatient dialysis was 04/15/2020. Hemodialysis: 05/01. Patient refused hemodialysis today. 2. FEN: Hyperkalemia, refused HD today, meds ordered. Metabolic acidosis, improved with HD. Monitor lytes and volume status. 3. Seizure: Keppra. 4. Uncontroleld Hypertension: S/p UF with HD. Patient refused BP meds today. Monitor BP. 5. Encephalopathy, POA: Likely post-ictal. 6. Anemia, POA: Likely 2/2 ESRD. 7. HIV: Continue home meds. 8. Medical non-compliance: counseled. - Subjective: Patient was seen and examined at the bedside. Wants to go home today. No new complaint. - Examination: General appearance: well-developed, appears stated age, not in distress HEENT: ATNC, DEN, hearing intact, vision intact Neck: neck supple, trachea midline Respiratory: Clear to Auscultation Heart: regular, S1S2, no murmur Gastrointestinal: soft, normoactive bowel sounds, not tender Integumentary: no rash, warm and dry Neurologic: no focal deficit, no asterixis, not cooperating with questions Ext: no edema Psychiatric: not cooperative Hemodialysis access: R IJ tunnel catheter Subjective Date of service: 05/02/20 Objective - Vital Signs Vital signs: Vital Signs - 12hr 05/02/20 05/02/20 05/02/20 00:00 00:36 03:00 Temperature 98.0 F Pulse Rate 113 H 82 Respiratory 14 14 Rate Blood Pressure 182/117 151/110 O2 Sat by Pulse 99 98 Oximetry 05/02/20 05/02/20 05/02/20 03:09 03:11 03:21 Temperature Pulse Rate 77 79 79 Respiratory 14 11 L Rate Blood Pressure 151/110 151/110 154/113 O2 Sat by Pulse 100 100 Oximetry 05/02/20 05/02/20 05/02/20 03:30 03:41 03:51 Temperature Pulse Rate 81 86 81 Respiratory 19 14 15 Rate Blood Pressure 154/108 154/108 159/111 O2 Sat by Pulse 98 100 100 Oximetry 05/02/20 05/02/20 05/02/20 04:00 04:11 04:21 Temperature 98.5 F Pulse Rate 84 90 85 Respiratory 17 13 14 Rate Blood Pressure 154/113 154/113 164/119 O2 Sat by Pulse 99 100 100 Oximetry 05/02/20 05/02/20 05/02/20 04:30 04:41 04:51 Temperature Pulse Rate 74 76 78 Respiratory 17 13 13 Rate Blood Pressure 164/117 164/117 160/111 O2 Sat by Pulse 100 100 Oximetry 05/02/20 05/02/20 05/02/20 05:00 05:11 05:21 Temperature Pulse Rate 81 90 93 H Respiratory 16 13 14 Rate Blood Pressure 167/121 167/121 163/115 O2 Sat by Pulse 99 99 98 Oximetry 05/02/20 05/02/20 05/02/20 05:30 05:41 05:51 Temperature Pulse Rate 103 H 81 83 Respiratory 21 13 13 Rate Blood Pressure 160/123 160/123 158/114 O2 Sat by Pulse 96 96 96 Oximetry 05/02/20 05/02/20 05/02/20 06:00 06:11 06:21 Temperature Pulse Rate 88 84 85 Respiratory 15 15 13 Rate Blood Pressure 148/110 148/110 147/113 O2 Sat by Pulse 96 97 Oximetry 05/02/20 05/02/20 05/02/20 06:30 06:41 06:51 Temperature Pulse Rate 82 100 H 79 Respiratory 13 15 14 Rate Blood Pressure 153/112 153/112 162/115 O2 Sat by Pulse 96 99 97 Oximetry 05/02/20 05/02/20 05/02/20 07:00 07:11 07:21 Temperature Pulse Rate 76 82 80 Respiratory 12 13 13 Rate Blood Pressure 147/110 147/110 151/102 O2 Sat by Pulse 100 97 97 Oximetry 05/02/20 05/02/20 05/02/20 07:30 07:41 07:51 Temperature Pulse Rate 85 84 85 Respiratory 14 13 15 Rate Blood Pressure 159/121 159/121 166/113 O2 Sat by Pulse 98 98 98 Oximetry 05/02/20 05/02/20 05/02/20 08:00 08:11 08:21 Temperature Pulse Rate 73 66 77 Respiratory 15 12 12 Rate Blood Pressure 166/113 154/102 136/96 O2 Sat by Pulse 96 97 95 Oximetry 05/02/20 05/02/20 05/02/20 08:30 08:41 08:51 Temperature Pulse Rate 73 76 76 Respiratory 13 15 14 Rate Blood Pressure 143/100 143/100 153/90 O2 Sat by Pulse 95 96 94 Oximetry 05/02/20 05/02/20 05/02/20 09:00 09:11 09:21 Temperature Pulse Rate 74 81 86 Respiratory 14 17 10 L Rate Blood Pressure 139/94 139/94 141/98 O2 Sat by Pulse 94 94 97 Oximetry 05/02/20 05/02/20 05/02/20 09:31 09:41 09:51 Temperature Pulse Rate 98 H 80 82 Respiratory 16 14 16 Rate Blood Pressure 141/98 178/120 166/105 O2 Sat by Pulse 97 98 97 Oximetry 05/02/20 05/02/20 05/02/20 10:00 10:11 10:21 Temperature Pulse Rate 77 97 H 80 Respiratory 14 16 15 Rate Blood Pressure 155/118 155/118 154/120 O2 Sat by Pulse 98 99 Oximetry 05/02/20 05/02/20 05/02/20 10:30 10:41 10:51 Temperature Pulse Rate 82 66 71 Respiratory 11 L 15 18 Rate Blood Pressure 163/123 163/123 180/124 O2 Sat by Pulse 98 98 98 Oximetry 05/02/20 05/02/20 05/02/20 11:01 11:05 11:11 Temperature Pulse Rate 69 76 62 Respiratory 9 L 14 Rate Blood Pressure 168/113 168/113 168/113 O2 Sat by Pulse 99 100 Oximetry - Lab 05/02/20 04:57 05/02/20 04:57 Most recent lab results Calcium 10.2 mg/dL (8.4-10.2) 05/02/20 04:57 Magnesium 2.10 mg/dL (1.7-2.3) 05/02/20 04:57 Medications & Allergies - Medications Allergies/Adverse Reactions: Allergies abacavir Adverse Reaction (Unknown, Verified 03/24/20 16:23) Unknown Home Medications: Home Medications Medication Instructions Recorded Confirmed Last Taken Type Calcium Acetate 650 mg PO TID 02/20/20 04/09/20 Unknown History Darunavir [Prezista] 800 mg PO DAILY 02/20/20 04/09/20 Unknown History Dolutegravir [Tivicay] 50 mg PO DAILY 02/20/20 04/09/20 Unknown History Ritonavir 100 mg PO DAILY 02/20/20 04/09/20 Unknown History Sodium Bicarbonate 650 mg PO TID 02/20/20 04/09/20 Unknown History amLODIPine 5 mg PO DAILY 02/20/20 04/09/20 Unknown History Active Medications: Generic Name Dose Route Start Last Admin Trade Name Carl PRN Reason Stop Dose Admin Calcium Acetate 667 mg 05/01/20 17:00 05/02/20 07:53 Phoslo PO Not Given TIDWM [facility] Heparin Sodium (Porcine) 5,000 unit 05/01/20 22:00 05/02/20 11:07 Heparin SUB-Q Not Given Q12HR [facility] Hydralazine HCl 25 mg 05/01/20 22:00 05/02/20 10:07 Apresoline PO Not Given Q8HR [facility] Sodium Chloride 100 mls @ 999 mls/hr 05/01/20 13:15 Nacl 0.9% IV ALTHEA PRN Hypotension Levetiracetam 1,000 mg/ 110 mls @ 400 mls/hr 05/01/20 22:00 05/02/20 10:07 Dextrose IV 400 mls/hr Q12HR AWA Administration Labetalol HCl 10 mg 05/01/20 15:08 05/02/20 11:05 Labetalol IV 10 mg Q4H PRN Administration Hypertension Lorazepam 2 mg 05/01/20 15:05 05/01/20 20:26 Ativan IV 2 mg Q1H PRN Administration Seizures Nifedipine 30 mg 05/01/20 22:00 05/02/20 10:07 Procardia Xl PO 30 mg Q12HR AWA Administration Pantoprazole Sodium 40 mg 05/02/20 10:00 05/02/20 10:07 Protonix IV 40 mg QDAY AWA Administration Sodium Bicarbonate 650 mg 05/01/20 20:00 05/02/20 10:08 Sodium Bicarbonate PO Not Given TID AWA
[2020-05-02] MEDS ORDERED: DEXTROSE 50% IN WATER (25GM) 50 ML SYRINGE IV ONE (13:00)
[2020-05-02] MEDS ORDERED: SODIUM POLYSTYRENE 15 GM/60 ML ORAL LIQD PO ONE (13:00)
[2020-05-02 14:03] VITALS: BP 163/113
--- NOTE | 2020-05-02 17:20 | Discharge Summary ---
Providers - Providers Date of Admission: 05/01/20 14:23 Date of discharge: 05/02/20 Attending physician: NISA CARLOS 05/01/20 13:11 Consult to Physician [CONS] Urgent Comment: Consulting Provider: ESTHER STEPHENSON Physician Instructions: Reason For Exam: esrd needing dialysis Primary care physician: [facility] LE[facility]ER Hospitalization Reason for admission: Seizures/hyperkalemia/altered mental status Condition: Fair Pertinent studies: CT head; no acute abnormality noted Chest x-ray Hospital course: 35-year-old -Spanish male patient with significant history of end-stage renal disease on hemodialysis HIV on antiretroviral medications Hypertension, cocaine use presented to the emergency room with history of seizure episode, patient was postictal when seen by the emergency room CT head without contrast was negative for acute abnormality, patient received IV Keppra, patient also had severe hyperkalemia , and very high creatinine evaluated by nephrology, and was scheduled for an emergency hemodialysis As per ER note patient has missed his dialysis for 2 weeks for unknown reason As per records patient complained to the EMS people of headache and shortness of breath, and route patient developed tonic-clonic seizures Not sure with the patient has history of seizures prior to this episode. Admitted to the hospital, placed on seizure precautions, evaluated by nephrology, received hemodialysis per schedule Patient was started on Keppra, with Ativan as needed, Today patient feels slightly better, verbal, angry that he was admitted to the hospital, and informed me this morning during my rounds that he wanted to leave AGAINST MEDICAL ADVICE. I counseled the importance of getting the treatment at least another 1 or 2 days. patient strongly advised not to drive in view of seizures till cleared by PMD or neurology also advised to follow nephrology, HD per schedule, neurology However later the nurse reported that the patient refused medication wanted to leave the hospital AMA Patient talked to his family members, and nurse notified the patient's family th at patient is leaving AMA. I was not present in the room when patient left AMA. Discharge diagnosis --Severe metabolic encephalopathy; --Seizure disorder; probably new onset --Hyperkalemia; potassium 7.0 --End-stage renal disease; on hemodialysis --Cocaine abuse; --Hypertension; moderate control --History of HIV; on antiretrovirals --Medical noncompliance; --DC planning per case management --DVT prophylaxis; Heparin renal dose --Full CODE STATUS; Patient's family aware Patient left AMA The high probability of a clinically significant, sudden or life threatening deterioration of the [Renal, CEMENT [employer]OR, ID, metabolic ] system(s) required my full and direct attention, intervention and personal management. The aggregate critical care time was [32] minutes. This time is in addition to time spent performing reported procedures but includes the following: [x] Data Review and interpretation [x] Patient assessment and monitoring of vital signs [x] Documentation [x] Medication orders and management Disposition: DC-07 LEFT AGAINST MED ADVICE Time spent for discharge: 32 min Core Measure Documentation - Palliative Care Palliative Care/ Comfort Measures: Not Applicable - Core Measures Any of the following diagnoses?: none Exam - Physical Exam Narrative exam: Patient left AMA - Constitutional Vitals: Temp Pulse Resp BP Pulse Ox 98.0 F 76 16 163/113 99 05/02/20 12:00 05/02/20 14:00 05/02/20 14:00 05/02/20 14:00 05/02/20 14:00 Plan Additional Instructions: Patient left AMA Follow up with: PRIMARY CARE, [Primary Care Provider] - 7 Days
== END 2020-05-02 15:10 | disposition left against medical advice (07) ==
LOC: ED 11:39 → IMCU 14:23
PROVIDERS: ADMIT Internal Medicine; ATTEND Internal Medicine
DX: G93.41 Metabolic encephalopathy (principal); G40.909 Epilepsy, unspecified, not intractable, without status epilepticus; I12.0 Hypertensive chronic kidney disease with stage 5 chronic kidney disease or end stage renal disease; N18.6 End stage renal disease; D63.1 Anemia in chronic kidney disease; J81.0 Acute pulmonary edema; K21.9 Gastro-esophageal reflux disease without esophagitis; G43.909 Migraine, unspecified, not intractable, without status migrainosus; E87.5 Hyperkalemia; F14.929 Cocaine use, unspecified with intoxication, unspecified; Z21 Asymptomatic human immunodeficiency virus [HIV] infection status; Z91.14 Patient's other noncompliance with medication regimen; Z99.2 Dependence on renal dialysis; Z91.15 Patient's noncompliance with renal dialysis; Z98.890 Other specified postprocedural states; Z79.899 Other long term (current) drug therapy
CPT/HCPCS: 36415; 70450; 71045; 80048; 80053; 80074; 80307; 81001; 83735; 85007; 85025; 87086; 93005; 94644; 96365; 96366; 96368; 96372; 96375; 96376; 99291; C9113; G0378; J1644; J1953; J2060; 80320; G0480; J1815

== ENCOUNTER 2020-05-14 05:54 | Day surgery (SDC) | payer MEDICARE ==
[2020-05-14] MEDS ORDERED: ceFAZolin/Water 2 GM/20 ML 2 GM/20 ML SYRINGE IV NR (06:00)
[2020-05-14] MEDS ORDERED: SODIUM CHLORIDE 0.9% 1000 ML 1,000 ML ONE (06:26)
[2020-05-14] MEDS ORDERED: BACTERIOSTATIC SODIUM CHLORIDE 0.9% 30 ML VIAL INFILTRATI ONE (06:26)
[2020-05-14] MEDS ORDERED: SODIUM CHLORIDE 0.9% 1000 ML 1,000 ML IV SCH (06:45)
[2020-05-14 07:21] LABS: Calcium 9.6 mg/dL (8.4-10.2)
--- NOTE | 2020-05-14 07:23 | Anesthesia Consultation ---
Anesthesia Consult and Med Hx Date of service: 05/14/20 - Airway Anesthetic Teeth Evaluation: Poor ROM Head & Neck: Adequate Mental/Hyoid Distance: Adequate Mallampati Class: Class II Intubation Access Assessment: Good - Pulmonary Exam CTA: Yes - Cardiac Exam Cardiac Exam: RRR - Pre-Operative Health Status ASA Pre-Surgery Classification: ASA3 Proposed Anesthetic Plan: MAC Nerve Block: IS Block w US - Pulmonary Hx Smoking: Yes (2mcig a day) - Cardiovascular System Hx Hypertension: Yes (no medication for over a week) - Central Nervous System Hx Seizures: Yes Hx Back Pain: Yes (AND NECK PAIN) Hx Psychiatric Problems: No - Endocrine Hx Renal Disease: Yes Hx End Stage Renal Disease: Yes - Hematic Hx Anemia: Yes - Other Systems Hx Cancer: No
--- NOTE | 2020-05-14 07:24 | Anesthesia Day of Surgery ---
Anesthesia Day of Surgery - Day of Surgery Patient Examined: Yes Patient H&P Reviewed: Yes Patient is NPO: Yes Beta Blockers: No
[2020-05-14 07:30] LABS: Hemoglobin 11.5 gm/dl (11.8-15.2); Mean Corpuscular HGB Conc 33 % (32-34); Mean Corpuscular Volume 87 fl (84-94); Platelet Count 163 K/mm3 (140-440); Red Blood Count 4.03 M/mm3 (3.65-5.03)
[2020-05-14] MEDS ORDERED: BUPIVACAINE/PF (0.25%) 2.5 MG/ML 30 ML VIAL INFILTRATI ONE (07:31)
[2020-05-14] MEDS ORDERED: MIDAZOLAM 2 MG/2 ML INJ ONE (07:32)
[2020-05-14] MEDS ORDERED: fentaNYL 100 MCG/2 ML INJ ONE (07:32)
[2020-05-14] MEDS ORDERED: LIDOCAINE (1%) 10 MG/1 ML VIAL 20 ML MDV ONE (07:38)
[2020-05-14] MEDS ORDERED: BUPIVACAINE/PF (0.5%) 5 MG/1 ML 30 ML VIAL INFILTRATI ONE ×3 (07:40→09:01)
[2020-05-14] MEDS ORDERED: rifAMPin 600 MG VIAL ONE (07:40)
[2020-05-14] MEDS ORDERED: HEPARIN 10,000 UNITS/10 ML VIAL ONE (07:40)
[2020-05-14] MEDS ORDERED: SODIUM CHLORIDE 0.9% 500 ML 500 ML ONE (07:41)
[2020-05-14] MEDS ORDERED: SODIUM CHLORIDE 0.9% 250ML 250 ML ONE (07:41)
[2020-05-14] MEDS ORDERED: LIDOCAINE 1%/EPINEPHRINE 1:100,000 VIAL (20 ML) INFILTRATI ONE (07:54)
[2020-05-14] MEDS ORDERED: SODIUM BICARBONATE 2 MEQ/2 ML SYRINGE ONE (07:55)
[2020-05-14] MEDS ORDERED: propofoL 200 MG/20 ML VIAL IV ONE (08:13)
[2020-05-14] MEDS ORDERED: KETAMINE/STERILE WATER 50 MG/ML SYRINGE ONE (08:25)
[2020-05-14] MEDS ORDERED: HEPARIN 1,000 UNIT in SODIUM CHLORIDE 0.9% 250ML 250 ML IR ONE (09:02)
[2020-05-14] MEDS ORDERED: SODIUM CHLORIDE 0.9% IRR 1,000 ML BOTTLE IR ONE (09:02)
[2020-05-14] MEDS ORDERED: GLYCOPYRROLATE 0.4 MG/2 ML INJ ONE (09:36)
[2020-05-14] MEDS ORDERED: ONDANSETRON 4 MG/2 ML INJ ONE (09:36)
--- NOTE | 2020-05-14 09:49 | Short Stay Summary ---
Short Stay Documentation Date of service: 05/14/20 Narrative H&P: See H&P - History H&P: obtained from office - Allergies and Medications Current Medications: Allergies abacavir Adverse Reaction (Unknown, Verified 05/07/20 11:22) Unknown Home Medications Medication Instructions Recorded Confirmed Last Taken Type Calcium Acetate 650 mg PO TID 02/20/20 05/07/20 05/13/20 History Darunavir [Prezista] 800 mg PO DAILY 02/20/20 05/07/20 05/13/20 History Dolutegravir [Tivicay] 50 mg PO DAILY 02/20/20 05/07/20 05/13/20 History Ritonavir 100 mg PO DAILY 02/20/20 05/07/20 05/13/20 History Sodium Bicarbonate 650 mg PO TID 02/20/20 05/07/20 05/13/20 History amLODIPine 5 mg PO DAILY 02/20/20 05/07/20 05/13/20 History Active Medications Cefazolin Sodium (Ancef/Sterile Water 2 Gm/20 Ml) 2 gm in 20 mls @ 80 mls/hr IV PREOP NR; Protocol Stop: 05/14/20 23:59 Sodium Chloride (Nacl 0.9% 1000 Ml) 1,000 mls @ 42 mls/hr IV DIRECT AWA Last Admin: 05/14/20 06:45 Dose: 42 mls/hr Documented by: - Brief post op/procedure progress note Date of procedure: 05/14/20 Pre-op diagnosis: End-Stage Renal Disease Post-op diagnosis: same Procedure: Creation of Right Moris Arteriovenous Fistula Anesthesia: MAC, regional Surgeon: SONY VERA Estimated blood loss: 50-100ml Pathology: none Condition: stable - Disposition Condition at discharge: Good Disposition: DC-01 TO HOME OR SELFCARE Short Stay Discharge Plan Activity: other (No heavy lifting with left arm for 2 weeks.) Wound: open to air, keep clean and dry, other (Okay to wash the wound with soap and water but do not soak in water for 2 weeks.) Follow up with: SONY VERA MD [Staff Physician] - 14 Days Prescriptions: HYDROcodone/APAP 7.5-325 [[place] 7.5/325] 1 each PO Q6HR PRN #30 tablet PRN Reason: Pain
--- NOTE | 2020-05-14 09:59 | Operative Report ---
Operative Report Operative Report: Date of procedure: 05/14/2020 Pre-operative diagnosis: End-Stage Renal Disease Post-operative diagnosis: End-Stage Renal Disease Procedure(s): Creation of Left Moris Fistula Surgeon: Destin Welsh MD Drafter Cartographic: None Anesthesia: Regional/MAC EBL: Minimal Counts: Correct Complications: None Condition: Stable Findings: Successful creation of left arm AV fistula Specimen: None Indication: The patient is a 35-year-old male with a history of end-stage renal disease who is currently on hemodialysis through a right internal jugular permacath. He is in need of long-term dialysis access and is a suitable candidate for creation of a right arm arteriovenous fistula. He was given the risk, benefits, and alternative procedures and consented to the procedure. Description of Procedure: A regional block of the patient's right arm was performed in the preoperative area prior to the patient being transported to the operating room. Once the patient was transported to the operating room he was adequately sedated and his right arm was prepped and draped in normal sterile fashion. A longitudinal incision was then created on the distal wrist centered over the cephalic vein and a second incision was created in longitudinal fashion over the radial artery. The radial artery was dissected out circumferentially and controlled with vessel loops. The cephalic vein was then dissected out circumferentially, ligating side branches and dividing them, and then a tunnel was created to transpose it over to the radial artery. A 3 Estevan was then advanced through the cephalic vein proximally to ensure patency. The vein was then flushed with heparinized saline and control of the bulldog clamp. The radial artery vessel loops were put on tension occluding flow, and then an 11 blade and Chávez scissors used to create an arteriotomy. An end-to-side anastomosis created between the cephalic vein and the radial artery using a single 6-0 Prolene in running fashion. Prior to completing the anastomosis I flushed the artery both retrograde and antegrade and advanced a 3 Estevan into the proximal portion of the artery to break the spasm. I then completed the anastomosis and removed all clamps allowing flow into the fistula which had an excellent thrill. I anesthetized wound using 0.5% Marcaine plain. Then closed the wounds in 2 layers using a 3-0 Vicryl running fashion the deep dermal layer, 4-0 Monocryl in a running fashion the subcuticular layer, and Surgicel as a dressing. The patient tolerated the procedure well, all sponge, needle, and instrument counts were correct, the patient was taken to recovery in stable condition.
--- NOTE | 2020-05-14 10:16 | Progress Note ---
Regional Anesthesia Block - Regional Anesthesia Block Start Time: 07:40 Stop Time: 07:50 Performed By:: RANDY ALEXIS Procedure: Right Supraclavicular Block with Ultrasound Pt Id, consent, time out; performed. Pt on monitor, VSS stable, sedation given per pre-op RN. Sterile prep and drape. Ultrasound placed above the clavicle, approximately at its midpoint. Landmarks Identified with ultrasound. 3cc 1% lido skin wheel. Needle advance within the brachial plexus sheath posterior to the subclavian artery, 30cc .25% bupivacaine injected intimately with negatives aspiration. Pt tolerated procedure will, VSS stable
--- NOTE | 2020-05-14 11:50 | Post Anesthesia Evaluation ---
- Post Anesthesia Evaluation Patient Participated: Yes Airway Patent: Yes Stable Respiratory Function: Yes Nausea/Vomiting: No Temp > 96.8F: Yes Pain Manageable: Yes Adequeate Hydration: Yes Anesthesia Complications: No Block Receding Appropriately: Not Applicable Patient on Ventilator: No
[2020-05-14 13:05] VITALS: BP 132/95
== END 2020-05-14 05:55 | disposition home or self-care (01) ==
LOC: OR 05:54
PROVIDERS: ATTEND Surgery Vascular Surgery
DX: I12.0 Hypertensive chronic kidney disease with stage 5 chronic kidney disease or end stage renal disease (principal); N18.6 End stage renal disease; K21.9 Gastro-esophageal reflux disease without esophagitis; B20 Human immunodeficiency virus [HIV] disease; F14.929 Cocaine use, unspecified with intoxication, unspecified; Z88.8 Allergy status to other drugs, medicaments and biological substances; Z79.899 Other long term (current) drug therapy; Z86.2 Personal history of diseases of the blood and blood-forming organs and certain disorders involving the immune mechanism; Z98.890 Other specified postprocedural states; Z87.891 Personal history of nicotine dependence
CPT/HCPCS: 36415; 36821; 80048; 85027; J0690; J1644; J2250; J2405; J2704; J3010; J3490; J7030; J7040; J7050; 64450

== ENCOUNTER 2020-07-13 06:10 | Observation (INO) | payer MEDICARE ==
[2020-07-13 09:26] LABS: Albumin 3.7 g/dL (3.9-5); Calcium 10.2 mg/dL (8.4-10.2)
[2020-07-13] MEDS ORDERED: levETIRAcetam 1000 MG/NS 0.75% 1,000 MG/100 ML BAG IV ONE (10:18)
[2020-07-13] MEDS ORDERED: ALBUTEROL 2.5 MG/3 ML NEBU IH ONE (10:18)
[2020-07-13] MEDS ORDERED: SODIUM BICARB 8.4% 50 MEQ/50 ML SYRINGE IV ONE (10:18)
[2020-07-13] MEDS ORDERED: INSULIN REGULAR, HUMAN 100 UNIT/ML 3ML VIAL IV ONE (10:18)
[2020-07-13] MEDS ORDERED: SODIUM POLYSTYRENE 15 GM/60 ML ORAL LIQD PO ONE (10:18)
[2020-07-13] MEDS ORDERED: DEXTROSE 50% IN WATER (25GM) 50 ML SYRINGE IV ONE (10:18)
--- NOTE | 2020-07-13 10:20 | Emergency Department Report ---
ED General Adult HPI - General Chief complaint: Medical Clearance Stated complaint: DIALYSIS PUI?: No Time Seen by Provider: 07/13/20 10:09 Source: patient, RN notes reviewed, old records reviewed Mode of arrival: Ambulatory Limitations: No Limitations - History of Present Illness Initial comments: The patient was evaluated in the emergency department for symptoms described in the history of present illness. He/she was evaluated in the context of the global COVID-19 pandemic, which necessitated consideration that the patient might be at risk for infection with the virus that causes COVID-19. Institutional protocols and algorithms that pertain to the evaluation of patients at risk for COVID-19 are in a state of rapid change based on information released by regulatory bodies including the CDC and federal and state organizations. These policies and algorithms were followed during the patient's care in the emergency department. Please note that these policies, procedures and recommendations changed on a rapid basis. The patient is a 35-year-old gentleman. He has a history of end-stage renal disease on hemodialysis. His order tracer is a Dr. Sage. He was last dialyzed Thanks. He also has a history of HIV, on antiviral medication, hypertension, cocaine use, and seizures. He presents to the ER today with a complaint of painless request for hemodialysis. He reports going to his outpatient hemodialysis center, and they told him to come to the emergency room. He denies physical pain. He denies all medical symptoms at this time. Improves with: none Worsens with: none Associated Symptoms: denies other symptoms - Related Data Home Medications Medication Instructions Recorded Confirmed Last Taken Darunavir [Prezista] 800 mg PO DAILY 02/20/20 07/13/20 07/12/20 Dolutegravir [Tivicay] 50 mg PO DAILY 02/20/20 07/13/20 07/12/20 Ritonavir 100 mg PO DAILY 02/20/20 07/13/20 07/12/20 Sodium Bicarbonate 650 mg PO TID 02/20/20 07/13/20 07/12/20 amLODIPine 5 mg PO DAILY 02/20/20 07/13/20 07/12/20 Allergies Allergy/AdvReac Type Severity Reaction Status Date / Time abacavir AdvReac Unknown Unknown Verified 05/07/20 11:22 ED Review of Systems ROS: Stated complaint: DIALYSIS Other details as noted in HPI Comment: All other systems reviewed and negative ED Past Medical Hx - Past Medical History Previous Medical History?: Yes Hx Hypertension: Yes Hx Diabetes: No Hx GERD: Yes Hx Renal Disease: Yes Hx Headaches / Migraines: Yes Hx Seizures: Yes Hx HIV: Yes Additional medical history: HIV, ESRD, Hemodialysis - Social History Smoking Status: Unknown if ever smoked - Medications Home Medications: Home Medications Medication Instructions Recorded Confirmed Last Taken Type Darunavir [Prezista] 800 mg PO DAILY 02/20/20 07/13/20 07/12/20 History Dolutegravir [Tivicay] 50 mg PO DAILY 02/20/20 07/13/20 07/12/20 History Ritonavir 100 mg PO DAILY 02/20/20 07/13/20 07/12/20 History Sodium Bicarbonate 650 mg PO TID 02/20/20 07/13/20 07/12/20 History amLODIPine 5 mg PO DAILY 02/20/20 07/13/20 07/12/20 History ED Physical Exam - General Limitations: No Limitations General appearance: alert, in no apparent distress - Head Head exam: Present: atraumatic, normocephalic - Eye Eye exam: Present: normal appearance, EOMI. Absent: nystagmus - ENT ENT exam: Present: normal exam, normal orophraynx, mucous membranes moist, normal external ear exam - Neck Neck exam: Present: normal inspection, full ROM. Absent: tenderness, meningismus - Respiratory Respiratory exam: Present: decreased breath sounds, other (There is a right-si ded thoracic Vas-Cath noted, without redness, pus or streaking). Absent: respiratory distress, wheezes, rales, rhonchi, stridor - Cardiovascular Cardiovascular Exam: Present: normal rhythm, tachycardia, normal heart sounds. Absent: systolic murmur, diastolic murmur, rubs, gallop - GI/Abdominal GI/Abdominal exam: Present: soft. Absent: distended, tenderness, guarding, rebound, rigid, pulsatile mass - Rectal Rectal exam: Present: deferred - Extremities Exam Extremities exam: Present: normal inspection (Right upper extremity fistula noted, without redness, pus or streaking.), full ROM, pedal edema (2+ edema noted in the bilateral lower extremities), other (2+ pulses noted in the bilateral upper and lower extremities. There is no palpable cord. negative Homans sign. Muscular compartments are soft. The pelvis is stable.). Absent: calf tenderness - Back Exam Back exam: Present: normal inspection. Absent: tenderness, CVA tenderness (R), CVA tenderness (L), paraspinal tenderness, vertebral tenderness - Neurological Exam Neurological exam: Present: alert, other (No facial droop. Tongue midline. Extraocular movements intact bilaterally. Facial sensation intact to light touch in V1, V2, V3 distribution bilaterally. 5 and a 5 strength in 4 extr emities. Sensation intact to light touch in 4 extremities.) - Psychiatric Psychiatric exam: Present: flat affect - Skin Skin exam: Present: warm, dry, intact, normal color. Absent: rash ED Course Vital Signs 07/13/20 07/13/20 07/13/20 07:32 10:11 10:16 Temperature 98.2 F Pulse Rate 106 H 106 H 107 H Respiratory 20 15 20 Rate Blood Pressure 145/97 140/95 O2 Sat by Pulse 95 100 98 Oximetry 07/13/20 10:23 Temperature Pulse Rate Respiratory 18 Rate Blood Pressure O2 Sat by Pulse 98 Oximetry ED Medical Decision Making - Lab Data Result diagrams: 07/13/20 08:40 Vital Signs 07/13/20 07:32 Temperature 98.2 F Pulse Rate 106 H Respiratory 20 Rate Blood Pressure 145/97 O2 Sat by Pulse 95 Oximetry Lab Results 07/13/20 Range/Units 08:40 Sodium 137 (137-145) mmol/L Potassium 7.0 H* (3.6-5.0) mmol/L Chloride 94.2 L (98-107) mmol/L Carbon Dioxide 21 L (22-30) mmol/L Anion Gap 29 mmol/L BUN 120 H (9-20) mg/dL Creatinine 29.2 H (0.8-1.3) mg/dL Estimated GFR 2 ml/min BUN/Creatinine Ratio 4 % Glucose 109 H (75-100) mg/dL Calcium 10.2 (8.4-10.2) mg/dL Total Bilirubin 0.30 (0.1-1.2) mg/dL AST 23 (5-40) units/L ALT 11 (7-56) units/L Alkaline Phosphatase 66 (35-129) units/L Total Protein 8.1 (6.3-8.2) g/dL Albumin 3.7 L (3.9-5) g/dL Albumin/Globulin Ratio 0.8 % - EKG Data -: EKG Interpreted by Me EKG shows normal: sinus rhythm Rate: normal - EKG Data 07/13/20 11:18 Sinus rhythm, 92 bpm, normal axis, QTC 463 ms, poor R wave progression. Abnormal EKG, not a STEMI, the EKG appears to be fairly unchanged when compared to prior EKG from April 2020, with the exception of resolution of peaked T waves. - Medical Decision Making Differential diagnosis, including but not limited to: Hyperkalemia, azotemia, uremia, metabolic acidosis, noncompliance Assessment and plan: 35-year-old gentleman with a history of end-stage renal disease on hemodialysis, with a history of noncompliance. He presents today with a complaint of painless request for hemodialysis. He is afebrile with reassuring vital signs with exception of mildly elevated blood pressure, and tachycardia. During my entire history and physical examination, he is playing on his cellular phone. He does not appear to be in any acute distress. Laboratory studies demonstrate hyperkalemia, metabolic acidosis, azotemia, and uremia. Patient medicated medically for hyperkalemia. He is amenable to hospitalization for emergent hemodialysis. Contacted nephrology on-call, Dr. Saldivar, and we have discussed the patient's history, physical, and pertinent laboratory studies. He will arrange for hemodialysis. Hospital physician, Dr. Tejada, to admit patient to the medical service. Critical Care Time: Yes Critical care time in (mins) excluding proc time.: 35 Critical care attestation.: If time is entered above; I have spent that time in minutes in the direct care of this critically ill patient, excluding procedure time. ED Disposition Clinical Impression: Hyperkalemia, End-stage renal disease needing dialysis, Azotemia, Uremia, Noncompliance Disposition: OP ADMIT IP TO THIS HOSP Is pt being admited?: Yes Does the pt Need Aspirin: No Condition: Serious Referrals: PRIMARY CARE, [Primary Care Provider] - 3-5 Days
[2020-07-13] MEDS ORDERED: CALCIUM GLUCONATE 1,000 MG in SODIUM CHLORIDE 0.9% 100 ML IV ONE (10:30)
[2020-07-13] MEDS ORDERED: INSULIN REGULAR, HUMAN 100 UNITS/1 ML ONE (11:00)
--- NOTE | 2020-07-13 12:00 | History and Physical Report ---
History of Present Illness Date of examination: 07/13/20 Date of admission: 07/13/20 10:49 Chief complaint: missed HD History of present illness: 35-year-old male with past medical history of ESRD on hemodialysis, HIV, hypertension, cocaine abuse and seizure disorder who presents through the emergency department with reports of missed hemodialysis since Sunday before . The patient presented only for the reason of obtaining hemodialysis. He does have a service delivery analyst Dr. Dickey who he has not seen. Patient reports that he missed hemodialysis due to difficulty with transportation and returning back to [place]. Patient denies any chest pain or shortness of breath. No headache or visual disturbances. No cough cold-like symptoms. Past History Past Medical History: other (see HPI) Past Surgical History: No surgical history Social history: no significant social history Family history: no significant family history Medications and Allergies Allergies Allergy/AdvReac Type Severity Reaction Status Date / Time abacavir AdvReac Unknown Unknown Verified 05/07/20 11:22 Home Medications Medication Instructions Recorded Confirmed Last Taken Type Darunavir [Prezista] 800 mg PO DAILY 02/20/20 07/13/20 07/12/20 History Dolutegravir [Tivicay] 50 mg PO DAILY 02/20/20 07/13/20 07/12/20 History Ritonavir 100 mg PO DAILY 02/20/20 07/13/20 07/12/20 History Sodium Bicarbonate 650 mg PO TID 02/20/20 07/13/20 07/12/20 History amLODIPine 5 mg PO DAILY 02/20/20 07/13/20 07/12/20 History Review of Systems All systems: negative Exam - Constitutional Vitals: Temp Pulse Resp BP Pulse Ox 98.2 F 107 H 18 140/95 98 07/13/20 07:32 07/13/20 10:16 07/13/20 10:23 07/13/20 10:16 07/13/20 10:23 General appearance: Present: no acute distress, well-nourished - EENT Eyes: Present: PERRL ENT: hearing intact, clear oral mucosa - Neck Neck: Present: supple, normal ROM - Respiratory Respiratory effort: normal Respiratory: bilateral: CTA - Cardiovascular Heart Sounds: Present: S1 & S2. Absent: rub, click - Extremities Extremities: pulses symmetrical, No edema Peripheral Pulses: within normal limits - Abdominal General gastrointestinal: Present: soft, non-tender, non-distended, normal bowel sounds Male genitourinary: Present: normal - Integumentary Integumentary: Present: clear, warm, dry - Musculoskeletal Musculoskeletal: gait normal, strength equal bilaterally - Psychiatric Psychiatric: appropriate mood/affect, intact judgment & insight - Neurologic Neurologic: CNII-XII intact, moves all extremities Results - Labs CBC & Chem 7: 07/13/20 08:40 Labs: Laboratory Last Values Sodium 137 mmol/L (137-145) 07/13/20 08:40 Potassium 7.0 mmol/L (3.6-5.0) H* 07/13/20 08:40 Chloride 94.2 mmol/L (98-107) L 07/13/20 08:40 Carbon Dioxide 21 mmol/L (22-30) L 07/13/20 08:40 Anion Gap 29 mmol/L 07/13/20 08:40 BUN 120 mg/dL (9-20) H 07/13/20 08:40 Creatinine 29.2 mg/dL (0.8-1.3) H 07/13/20 08:40 Estimated GFR 2 ml/min 07/13/20 08:40 BUN/Creatinine Ratio 4 % 07/13/20 08:40 Glucose 109 mg/dL (75-100) H 07/13/20 08:40 Calcium 10.2 mg/dL (8.4-10.2) 07/13/20 08:40 Total Bilirubin 0.30 mg/dL (0.1-1.2) 07/13/20 08:40 AST 23 units/L (5-40) 07/13/20 08:40 ALT 11 units/L (7-56) 07/13/20 08:40 Alkaline Phosphatase 66 units/L (35-129) 07/13/20 08:40 Total Protein 8.1 g/dL (6.3-8.2) 07/13/20 08:40 Albumin 3.7 g/dL (3.9-5) L 07/13/20 08:40 Albumin/Globulin Ratio 0.8 % 07/13/20 08:40 Assessment and Plan Assessment and plan: --Hyperkalemia; potassium 7.0 Secondary to end-stage renal disease Start hemodialysis, nephrology consultation --End-stage renal disease; on hemodialysis Not sure if patient was compliant Very high creatinine, nephrology following Start dialysis today, HD per schedule --Seizure disorder Continue AEDs. --Cocaine abuse; We will after school counselor the patient when stable Supportive care --Hypertension; moderate control Continue current antihypertensives, PRN medications --History of HIV; on antiretrovirals Will resume appropriate medications Consider ID evaluation if needed --Medical noncompliance; Patient is noncompliant with medications, diet Hemodialysis, follow-up visits We will after school counselor the patient and he is more stable the importance of adhering to the treatment plan --DC planning per case management --DVT prophylaxis; Heparin renal dose --Full CODE STATUS;
[2020-07-13 12:24] LABS: Hepatitis B Surface Antigen Non-Reactive (Negative); Hepatitis C Virus Antibody Non-Reactive (NonReactive)
[2020-07-13 17:55] VITALS: BP 149/87
== END 2020-07-13 18:45 | disposition left against medical advice (07) ==
LOC: ED 06:10 → 3A 10:49
PROVIDERS: ADMIT Hospitalist; ATTEND Hospitalist
DX: I12.0 Hypertensive chronic kidney disease with stage 5 chronic kidney disease or end stage renal disease (principal); N18.6 End stage renal disease; G43.909 Migraine, unspecified, not intractable, without status migrainosus; F14.10 Cocaine abuse, uncomplicated; Z91.19 Patient's noncompliance with other medical treatment and regimen; Z79.899 Other long term (current) drug therapy; Z91.15 Patient's noncompliance with renal dialysis; Z88.8 Allergy status to other drugs, medicaments and biological substances
CPT/HCPCS: 36415; 80053; 80074; 93005; 94640; 96365; 96368; 96375; 99291; G0257; G0378; J0610; J1953; 96367; J1815

== ENCOUNTER 2021-02-18 06:06 | Day surgery (SDC) | payer MEDICARE ==
[~2021-02-18 06:06] MED LIST: SODIUM CHLORIDE 0.9% 1000 ML 1,000 ML IV SCH; ceFAZolin/STERILE WATER 2 GM/20 ML SYRINGE IV NR
[2021-02-18 07:05] LABS: Hematocrit 34.4 % (35.5-45.6); Hemoglobin 11.1 gm/dl (11.8-15.2); Mean Corpuscular HGB Conc 32 % (32-34); Mean Corpuscular Volume 90 fl (84-94); Platelet Count 160 K/mm3 (140-440); Red Blood Count 3.84 M/mm3 (3.65-5.03); Red Cell Distribution Width 19.7 % (13.2-15.2)
[2021-02-18] MEDS ORDERED: HEPARIN 10,000 UNITS/10 ML VIAL ONE (07:15)
[2021-02-18] MEDS ORDERED: SODIUM CHLORIDE 0.9% 500 ML 500 ML ONE (07:15)
[2021-02-18 07:17] LABS: Calcium 8.7 mg/dL (8.4-10.2)
[2021-02-18] MEDS ORDERED: BUPIVACAINE/PF (0.5%) 5 MG/1 ML 30 ML VIAL INFILTRATI ONE (07:27)
[2021-02-18] MEDS ORDERED: propofoL 200 MG/20 ML VIAL IV ONE (07:32)
[2021-02-18] MEDS ORDERED: LIDOCAINE (1%) 10 MG/1 ML VIAL 20 ML MDV ONE (07:33)
[2021-02-18] MEDS ORDERED: MIDAZOLAM 2 MG/2 ML INJ ONE (07:33)
[2021-02-18] MEDS ORDERED: SODIUM CHLORIDE 0.9% 250 ML IVPB IR ONE (09:27)
[2021-02-18] MEDS ORDERED: HEPARIN 10,000 UNITS/10 ML VIAL IV ONE (09:27)
[2021-02-18] MEDS ORDERED: ONDANSETRON 4 MG/2 ML INJ ONE (09:29)
--- NOTE | 2021-02-18 10:18 | Short Stay Summary ---
Short Stay Documentation Date of service: 02/18/21 Narrative H&P: See H&P - History H&P: obtained from office - Allergies and Medications Current Medications: Allergies abacavir Adverse Reaction (Unknown, Verified 02/03/21 16:28) Unknown Home Medications Medication Instructions Recorded Confirmed Last Taken Type Darunavir [Prezista] 800 mg PO DAILY 02/20/20 02/18/21 02/17/21 12:00 History Dolutegravir [Tivicay] 50 mg PO DAILY 02/20/20 02/18/21 02/17/21 12:00 History Ritonavir 100 mg PO DAILY 02/20/20 02/18/21 02/17/21 12:00 History amLODIPine 5 mg PO DAILY 02/20/20 02/18/21 02/17/21 12:00 History Active Medications Cefazolin Sodium (Cefazolin/Sterile Water 2 Gm/20 Ml Syringe) 2 gm IV PREOP NR Stop: 02/18/21 20:00 Sodium Chloride (Nacl 0.9% 1000 Ml) 1,000 mls @ 42 mls/hr IV DIRECT AWA Last Admin: 02/18/21 07:35 Dose: 42 mls/hr Documented by: - Brief post op/procedure progress note Date of procedure: 02/18/21 Pre-op diagnosis: End-Stage Renal Disease Post-op diagnosis: same Procedure: Creation of Right Brachiocephalic Arteriovenous Fistula Anesthesia: MAC, regional Surgeon: SONY VERA Estimated blood loss: minimal Pathology: none Condition: stable - Disposition Condition at discharge: Good Disposition: DC-01 TO HOME OR SELFCARE Short Stay Discharge Plan Activity: other (No heavy lifting with right arm for 2 weeks. Use stress ball with right hand as often as possible.) Wound: open to air, keep clean and dry, other (Okay to wash her right arm wound with soap and water but do not soak in water for 2 weeks.) Follow up with: SONY VERA MD [Staff Physician] - 14 Days Prescriptions: HYDROcodone/APAP 7.5-325 [[place] 7.5/325] 1 each PO Q6HR PRN #30 tablet PRN Reason: Pain
--- NOTE | 2021-02-18 10:25 | Operative Report ---
Operative Report Operative Report: Date of procedure: 02/18/2021 Pre-operative diagnosis: End-Stage Renal Disease Post-operative diagnosis: End-Stage Renal Disease Procedure(s): Creation of Right brachial Artery to Cephalic Vein Arteriovenous Fistula Surgeon: Destin Welsh MD Intake Nurse: None Anesthesia: Regional/MAC EBL: Minimal Counts: Correct Complications: None Condition: Stable Findings: Successful creation of right brachiocephalic arteriovenous fistula with palpable thrill and palpable radial pulse at the completion of the case. Specimen: None Indications: The patient is a 36-year-old male with a history of end-stage renal disease who is currently on hemodialysis through a permacath. Description of Procedure: The patient had a regional block of the patient's right arm was performed in the preoperative area prior to being transported to the operating room. Once the regional block was performed the patient was transported to the operating room and adequate sedation was given. When the patient was sedated a timeout was performed and the patient's right arm was then prepped and draped in normal sterile fashion. A transverse incision was then made and carried down to the cephalic vein using sharp dissection. The vein was dissected out both proximally and distally and suture ligated and divided distally. I flushed the vein with heparinized saline and flow was controlled with a bulldog clamp. I then dissected out the brachial artery through this incision circumferentially both proximal and distal and controlled the artery with vessel loops. I systemically heparinized the patient with 3000 units of heparin IV and used angled DeBakey clamps to control flow through the artery. I created an arteriotomy using an 11 blade and Chávez scissors. I created an end to side anastomosis between the cephalic vein and brachial artery using a 6-0 Prolene in running fashion. Prior to completing the anastomosis I flashed the artery both proximally and distally and then flushed the anastomosis with heparinized saline to remove any debris. I then completed the anastomosis and removed all clamps allowing flow into the fistula which had an adequate thrill. I achieved hemostasis with a combination of Quick Clot and electrocautery. Once hemostasis had been achieved I closed the wound in 2 layers using a 3-0 Vicryl in a running fashion in the deep dermal layer and a 4-0 Monocryl in running fashion in the subcuticular layer. I then dressed the wound with Dermabond. The patient tolerated the procedure well. All sponge, needle, and instrument counts were correct. The patient was taken to the recovery area in stable condition.
[2021-02-18 10:47] VITALS: BP 126/94
--- NOTE | 2021-02-18 15:45 | Post Anesthesia Evaluation ---
- Post Anesthesia Evaluation Patient Participated: Yes Airway Patent: Yes Stable Respiratory Function: Yes Nausea/Vomiting: No Temp > 96.8F: Yes Pain Manageable: Yes Adequeate Hydration: Yes Anesthesia Complications: No Block Receding Appropriately: Yes Patient on Ventilator: No
--- NOTE | 2021-02-18 15:45 | Anesthesia Consultation ---
Anesthesia Consult and Med Hx Date of service: 02/18/21 - Airway Anesthetic Teeth Evaluation: Edentulous ROM Head & Neck: Adequate Mental/Hyoid Distance: Adequate Mallampati Class: Class I Intubation Access Assessment: Good - Pulmonary Exam CTA: No - Cardiac Exam Cardiac Exam: RRR - Pre-Operative Health Status ASA Pre-Surgery Classification: ASA3 Proposed Anesthetic Plan: MAC Nerve Block: supraclavicular - Pulmonary Hx Smoking: Yes (PER PT SMOKES 2CIGS/DAY) Hx Asthma: Yes Hx Pneumonia: Yes (3 MONTHS AGO) Hx Sleep Apnea: No - Cardiovascular System Hx Hypertension: Yes - Central Nervous System Hx Seizures: Yes (X1) Hx Back Pain: Yes (MUSCLE SPASMS ALSO NECK PAIN) Hx Psychiatric Problems: No - Endocrine Hx Renal Disease: Yes Hx End Stage Renal Disease: Yes - Hematic Hx Anemia: No - Other Systems Hx Alcohol Use: No Hx Substance Use: No Hx Cancer: No - Additional Comments Anesthesia Medical History Comments: HIV positive
--- NOTE | 2021-02-18 15:59 | Anesthesia Day of Surgery ---
Anesthesia Day of Surgery - Day of Surgery Patient Examined: Yes Patient H&P Reviewed: Yes Patient is NPO: Yes
== END 2021-02-18 06:07 | disposition home or self-care (01) ==
LOC: OR 06:06
PROVIDERS: ATTEND Surgery Vascular Surgery
DX: I13.2 Hypertensive heart and chronic kidney disease with heart failure and with stage 5 chronic kidney disease, or end stage renal disease (principal); I50.9 Heart failure, unspecified; N18.6 End stage renal disease; G43.909 Migraine, unspecified, not intractable, without status migrainosus; J45.909 Unspecified asthma, uncomplicated; K21.9 Gastro-esophageal reflux disease without esophagitis; M19.90 Unspecified osteoarthritis, unspecified site; F17.210 Nicotine dependence, cigarettes, uncomplicated; Z87.440 Personal history of urinary (tract) infections; Z98.890 Other specified postprocedural states; Z80.8 Family history of malignant neoplasm of other organs or systems; Z88.8 Allergy status to other drugs, medicaments and biological substances; Z79.899 Other long term (current) drug therapy
CPT/HCPCS: 36415; 36821; 64415; 80048; 85027; J0690; J1644; J2250; J2405; J2704; J3490; J7030; J7040; J7050; 64450

== ENCOUNTER 2021-03-16 20:47 | Inpatient (IN) | payer MEDICARE ==
[2021-03-16] MEDS ORDERED: ACETAMINOPHEN 500 MG TAB PO ONE (22:44)
[2021-03-16 23:53] LABS: Basophils # (Auto) 0.1 K/mm3 (0.0-0.1); Basophils % (Auto) 1.2 % (0.0-1.8); Eosinophils # (Auto) 0.4 K/mm3 (0.0-0.4); Eosinophils % (Auto) 3.5 % (0.0-4.3); Hematocrit 34.3 % (35.5-45.6); Hemoglobin 11.3 gm/dl (11.8-15.2); Lymphocytes % (Auto) 9.7 % (13.4-35.0); Mean Corpuscular HGB Conc 33 % (32-34); Mean Corpuscular Volume 87 fl (84-94); Monocytes # (Auto) 0.8 K/mm3 (0.0-0.8); Monocytes % (Auto) 7.4 % (0.0-7.3); Platelet Count 237 K/mm3 (140-440); Red Blood Count 3.94 M/mm3 (3.65-5.03); Red Cell Distribution Width 19.3 % (13.2-15.2)
[2021-03-17 00:16] LABS: Albumin 4.3 g/dL (3.9-5); Blood Urea Nitrogen 57 mg/dL (9-20); Calcium 8.9 mg/dL (8.4-10.2); Hemolysis Index 2
[2021-03-17 00:17] LABS: Alanine Aminotransferase < 5 units/L (7-56); BUN/Creatinine Ratio 3
--- NOTE | 2021-03-17 00:46 | Emergency Department Report ---
ED Shortness of Breath HPI - General Chief Complaint: Dyspnea/Respdistress Stated Complaint: MARTHA/DIALYSIS Time Seen by Provider: 03/17/21 00:35 Source: patient Mode of arrival: Ambulatory Limitations: No Limitations - History of Present Illness Initial Comments: Patient is a 36-year-old male who presents emergency room with complaints of shortness of breath and missed dialysis. Patient states that shortness of breath better with rest and worse exertion. Patient denies fever and chills. Patient denies cough. Patient denies nausea vomiting. Patient denies chest pain. Patient denies any physical pain. Patient states he missed 1 session. Patient states he was on Sunday, and Sunday. Patient states he missed his Sunday. Patient states he did not have a ride. Patient denies recent travel. Patient denies recent international travel. Patient denies exposure to the novel coronavirus. Patient denies sick contacts. Patient denies fever and chills. Patient denies cough. Patient denies diarrhea. Patient denies coming in contact with anybody with symptoms of the novel coronavirus. Patient states he is not vaccinated against COVID-19. Complaint: shortness of breath -: Sudden, days(s) Severity: moderate Consistency: constant Improves With: rest Worsens With: exertion Known History Of: other (esrd, missed hd) Treatments Prior to Arrival: none - Related Data Home Oxygen Therapy: No Home Medications Medication Instructions Recorded Confirmed Last Taken Darunavir [Prezista] 800 mg PO DAILY 02/20/20 02/18/21 02/17/21 12:00 Dolutegravir [Tivicay] 50 mg PO DAILY 02/20/20 02/18/21 02/17/21 12:00 Ritonavir 100 mg PO DAILY 02/20/20 02/18/21 02/17/21 12:00 amLODIPine 5 mg PO DAILY 02/20/20 02/18/21 02/17/21 12:00 Previous Rx's Medication Instructions Recorded Last Taken Type HYDROcodone/APAP 7.5-325 [[place] 1 each PO Q6HR PRN #30 tablet 02/18/21 Unknown Rx 7.5/325] Allergies Allergy/AdvReac Type Severity Reaction Status Date / Time abacavir AdvReac Unknown Unknown Verified 02/03/21 16:28 ED Review of Systems ROS: Stated complaint: MARTHA/DIALYSIS Other details as noted in HPI Constitutional: denies: chills, fever Eyes: denies: eye pain, eye discharge, vision change ENT: denies: ear pain, throat pain Respiratory: shortness of breath. denies: cough, wheezing Cardiovascular: denies: chest pain, palpitations Endocrine: no symptoms reported Gastrointestinal: denies: abdominal pain, nausea, diarrhea Genitourinary: denies: urgency, dysuria Musculoskeletal: denies: back pain, joint swelling, arthralgia Skin: denies: rash, lesions Neurological: denies: headache, weakness, paresthesias Psychiatric: denies: anxiety, depression Hematological/Lymphatic: denies: easy bleeding, easy bruising ED Past Medical Hx - Past Medical History Previous Medical History?: Yes Hx Hypertension: Yes Hx Congestive Heart Failure: Yes Hx GERD: Yes Hx Renal Disease: Yes Hx Arthritis: ( HX TENNIS ELBOW) Hx Headaches / Migraines: Yes (MIGRAINES) Hx Seizures: Yes (X1) Hx Asthma: Yes Hx HIV: Yes Additional medical history: HIV, ESRD, Hemodialysis , . Sat - Surgical History Past Surgical History?: Yes Additional Surgical History: fistula to left wrist. port to chest - Family History Family history: no significant - Social History Smoking Status: Current Every Day Smoker Substance Use Type: None - Medications Home Medications: Home Medications Medication Instructions Recorded Confirmed Last Taken Type Darunavir [Prezista] 800 mg PO DAILY 02/20/20 02/18/21 02/17/21 12:00 History Dolutegravir [Tivicay] 50 mg PO DAILY 02/20/20 02/18/21 02/17/21 12:00 History Ritonavir 100 mg PO DAILY 02/20/20 02/18/21 02/17/21 12:00 History amLODIPine 5 mg PO DAILY 02/20/20 02/18/21 02/17/21 12:00 History HYDROcodone/APAP 7.5-325 [[place] 1 each PO Q6HR PRN #30 tablet 02/18/21 Unknown Rx 7.5/325] ED Physical Exam - General Limitations: No Limitations General appearance: alert, in no apparent distress - Head Head exam: Present: atraumatic, normocephalic - Eye Eye exam: Present: normal appearance - ENT ENT exam: Present: mucous membranes moist - Neck Neck exam: Present: normal inspection - Respiratory Respiratory exam: Present: normal lung sounds bilaterally. Absent: respiratory distress - Cardiovascular Cardiovascular Exam: Present: regular rate, normal rhythm. Absent: systolic murmur, diastolic murmur, rubs, gallop - GI/Abdominal GI/Abdominal exam: Present: soft, normal bowel sounds - Rectal Rectal exam: Present: deferred - Extremities Exam Extremities exam: Present: normal inspection - Back Exam Back exam: Present: normal inspection - Neurological Exam Neurological exam: Present: alert, oriented X3 - Psychiatric Psychiatric exam: Present: normal affect, normal mood - Skin Skin exam: Present: warm, dry, intact, normal color. Absent: rash ED Course Vital Signs 03/16/21 03/17/21 22:44 00:32 Temperature 100.2 F H Pulse Rate 114 H 108 H Respiratory 20 21 Rate Blood Pressure 137/92 O2 Sat by Pulse 97 96 Oximetry - Reevaluation(s) Reevaluation #1: Patient will be given calcium and then with insulin and D50 and Kayexalate. I discussed all results with patient. I discussed plan of care with patient. Patient agrees with plan of care and admission. Patient to be admitted to the hospitalist service. 03/17/21 01:01 - Consultations Consultation #1: I discussed the case with nephrology, Dr. Montana. Dr. Montana agrees with plan of care and hyperkalemia protocol. 03/17/21 00:58 Consultation #2: Hospitalist consulted for admission. Hospitalist to admit patient. 03/17/21 01:10 ED Medical Decision Making - Lab Data Result diagrams: 03/16/21 22:53 03/16/21 22:53 - EKG Data -: EKG Interpreted by Me EKG shows normal: sinus rhythm, axis, intervals, QRS complexes, ST-T waves Rate: normal - Radiology Data Radiology results: report reviewed, image reviewed interpreted by me: Chest x-ray: No pneumonia, no pneumothorax, no foreign body, no osseous findings, vascular congestion noted. CHEST - 1 VIEW INDICATION: MARTHA COMPARISON: 09/01/2020 FINDINGS: SUPPORT DEVICES: Stable support device positioning. HEART: Stable cardiomediastinal silhouette. LUNGS/PLEURA: Mild central vascular congestion, slightly asymmetric to the right. No overt edema or effusion. ADDITIONAL FINDINGS: None. IMPRESSION: Pulmonary findings as above. - Medical Decision Making Patient is a 36-year-old male that presents emergency room with shortness of breath and missed dialysis. Patient had labs done which were essentially markable for end-stage renal and hyperkalemia. Patient given a hyperkalemia protocol to include calcium then insulin, D50 and Kayexalate. Patient had an EKG done which were essentially unremarkable. Patient not have any ST changes. I personally reviewed the EKG. Patient had chest x-ray done which showed vascular congestion. I personally reviewed the chest x-ray. I discussed the case with nephrology and nephrology agree with plan of care and wants the patient admitted. Patient admitted to the hospital service for further evaluation treatment. Critical care time documented due to the multiple reassessments, prolonged time at the bedside, interpretation of diagnostics and labs and discussion with consultants.. - Differential Diagnosis Shortness of breath, missed dialysis, volume overload, CHF Critical Care Time: Yes Critical care time in (mins) excluding proc time.: 35 Critical care attestation.: If time is entered above; I have spent that time in minutes in the direct care of this critically ill patient, excluding procedure time. Critical Care Time: 35 minutes ED Disposition Clinical Impression: End-stage renal disease needing dialysis, Hyperkalemia, SOB (shortness of breath) Pulmonary edema Qualifiers: Chronicity: acute Qualified Code(s): J81.0 - Acute pulmonary edema Disposition: OP ADMIT IP TO THIS HOSP Is pt being admited?: Yes Does the pt Need Aspirin: No Condition: Critical Instructions: Pulmonary Edema (ED) Time of Disposition: 01:07
[2021-03-17] MEDS ORDERED: INSULIN REGULAR, HUMAN 100 UNITS/1 ML IV ONE ×2 (00:53→05:00)
[2021-03-17] MEDS ORDERED: SODIUM POLYSTYRENE 15 GM/60 ML ORAL LIQD PO ONE ×2 (00:53→05:00)
[2021-03-17] MEDS ORDERED: CALCIUM CHLORIDE 1,000 MG in SODIUM CHLORIDE 0.9% 100 ML IV ONE (00:53)
[2021-03-17] MEDS ORDERED: DEXTROSE 50% IN WATER (25GM) 50 ML SYRINGE IV ONE ×2 (00:53→05:00)
--- NOTE | 2021-03-17 00:53 | XRay Report ---
CHEST - 1 VIEW INDICATION: MARTHA COMPARISON: 09/01/2020 FINDINGS: SUPPORT DEVICES: Stable support device positioning. HEART: Stable cardiomediastinal silhouette. LUNGS/PLEURA: Mild central vascular congestion, slightly asymmetric to the right. No overt edema or effusion. ADDITIONAL FINDINGS: None. IMPRESSION: Pulmonary findings as above. Signer Name: Freedom Brunson MD Signed: 03/17/2021 12:49 AM Workstation Name: [id number]
[2021-03-17 02:22] LABS: Chol/HDL Ratio 5.64 %; HDL Cholesterol 28 mg/dL (40-59); LDL Cholesterol,Direct 91 mg/dL (50-130)
[2021-03-17] MEDS ORDERED: ALBUTEROL 2.5 MG/3 ML NEBU IH PRN (05:57)
[2021-03-17] MEDS ORDERED: ONDANSETRON 4 MG/2 ML INJ IV PRN (05:57)
[2021-03-17] MEDS ORDERED: ACETAMINOPHEN 325 MG TAB PO PRN (05:57)
[2021-03-17] MEDS ORDERED: oxyCODONE /ACETAMINOPHEN 5-325MG TAB PO PRN (05:57)
[2021-03-17] MEDS ORDERED: HYDROmorphone 1 MG/1 ML INJ IV PRN (05:57)
[2021-03-17] MEDS ORDERED: DEXTROSE 50% IN WATER (25GM) 50 ML SYRINGE IV PRN (05:57)
[2021-03-17] MEDS ORDERED: CALCIUM GLUCONATE 1,000 MG in SODIUM CHLORIDE 0.9% 100 ML IV ONE (06:01)
--- NOTE | 2021-03-17 06:08 | History and Physical Report ---
History of Present Illness Date of examination: 03/17/21 Date of admission: 03/17/21 01:07 Chief complaint: Shortness of breath Missed hemodialysis History of present illness: 36-year-old male with past medical history of end-stage renal disease on dialysis, hypertension, CHF was brought to the hospital because of shortness of breath and missed dialysis. Patient is on hemodialysis on Sunday and Sunday. He missed his dialysis on Sunday because he did not have a ride. patient states that shortness of breath better with rest and worse exertion. Dalton horowitz denies fever and chills. Patient denies cough. Patient denies nausea vomiting. Patient denies chest pain. Patient states he missed 1 session. In the emergency room patient is found to have potassium of 6.5, BUN 57 and creatinine was 17.5. Subsequently Case discussed with nephrology Dr. Nan reyes HD the patient in the morning Past History Past Medical History: heart failure, HIV/AIDS, hypertension, renal failure, seizures Medications and Allergies Allergies Allergy/AdvReac Type Severity Reaction Status Date / Time abacavir AdvReac Unknown Unknown Verified 02/03/21 16:28 Home Medications Medication Instructions Recorded Confirmed Last Taken Type Darunavir [Prezista] 800 mg PO DAILY 02/20/20 02/18/21 02/17/21 12:00 History Dolutegravir [Tivicay] 50 mg PO DAILY 02/20/20 02/18/21 02/17/21 12:00 History Ritonavir 100 mg PO DAILY 02/20/20 02/18/21 02/17/21 12:00 History amLODIPine 5 mg PO DAILY 02/20/20 02/18/21 02/17/21 12:00 History HYDROcodone/APAP 7.5-325 [[place] 1 each PO Q6HR PRN #30 tablet 02/18/21 Unknown Rx 7.5/325] Active Meds: Active Medications Acetaminophen (Acetaminophen 325 Mg Tab) 650 mg PO Q4H PRN PRN Reason: Pain MILD(1-3)/Fever >100.5/HIGHTOWER Albuterol (Albuterol 2.5 Mg/3 Ml Nebu) 2.5 mg IH Q4HRT PRN PRN Reason: Shortness Of Breath Albuterol/Ipratropium (Ipratropium/Albuterol Sulfate 3 Ml Ampul.Neb) 1 ampul IH Q6HRT PENDING SALE TO [facility] Amlodipine Besylate (Amlodipine 5 Mg Tab) 5 mg PO DAILY PENDING SALE TO [facility] Darunavir (Darunavir 800 Mg Tab) 800 mg PO DAILY PENDING SALE TO [facility] Dextrose (Dextrose 50% In Water (25gm) 50 Ml Syringe) 50 ml IV Q30MIN PRN; Protocol PRN Reason: Hypoglycemia Famotidine (Famotidine 20 Mg Tab) 20 mg PO BID PENDING SALE TO [facility] Heparin Sodium (Porcine) (Heparin 5,000 Unit/1 Ml Vial) 5,000 unit SUB-Q Q8HR PENDING SALE TO [facility] Hydromorphone HCl (Hydromorphone 1 Mg/1 Ml Inj) 0.5 mg IV Q3H PRN PRN Reason: Pain , Severe (7-10) Calcium Gluconate 1,000 mg/ (Sodium Chloride) 110 mls @ 660 mls/hr IV ONCE ONE Stop: 03/17/21 06:10 Insulin Human Lispro (Insulin Lispro 100 Unit/Ml) 0 unit SUB-Q ACHS PENDING SALE TO [facility]; Protocol Ondansetron HCl (Ondansetron 4 Mg/2 Ml Inj) 4 mg IV Q8H PRN PRN Reason: Nausea And Vomiting Oxycodone/Acetaminophen (Oxycodone /Acetaminophen 5-325mg Tab) 1 tab PO Q6H PRN PRN Reason: Pain, Moderate (4-6) Ritonavir (Ritonavir 100 Mg Tab) 100 mg PO DAILY PENDING SALE TO [facility] Sodium Chloride (Sodium Chloride 0.9% 10 Ml Flush Syringe) 10 ml IV BID PENDING SALE TO [facility] Sodium Chloride (Sodium Chloride 0.9% 10 Ml Flush Syringe) 10 ml IV PRN PRN PRN Reason: LINE FLUSH Sodium Polystyrene Sulfonate (Sodium Polystyrene 15 Gm/60 Ml Oral Liqd) 30 gm PO Q6HR PENDING SALE TO [facility] Stop: 03/17/21 18:01 Review of Systems Cardiovascular: shortness of breath, dyspnea on exertion Respiratory: shortness of breath, dyspnea on exertion Exam - Constitutional Vitals: Temp Pulse Resp BP Pulse Ox 100.2 F H 113 H 27 H 161/110 88 03/16/21 22:44 03/17/21 05:31 03/17/21 05:31 03/17/21 05:31 03/17/21 05:31 General appearance: Present: no acute distress, well-nourished - EENT Eyes: Present: PERRL ENT: hearing intact, clear oral mucosa - Neck Neck: Present: supple, normal ROM - Respiratory Respiratory effort: normal Respiratory: bilateral: diminished - Cardiovascular Heart Sounds: Present: S1 & S2. Absent: rub, click - Extremities Extremities: pulses symmetrical, No edema Peripheral Pulses: within normal limits - Abdominal General gastrointestinal: Present: soft, non-tender, non-distended, normal bowel sounds Male genitourinary: Present: normal - Integumentary Integumentary: Present: clear, warm, dry - Musculoskeletal Musculoskeletal: gait normal, strength equal bilaterally - Psychiatric Psychiatric: appropriate mood/affect, intact judgment & insight - Neurologic Neurologic: CNII-XII intact, moves all extremities HEART Score - HEART Score Troponin: Troponin T 0.071 ng/mL (0.00-0.029) H 03/16/21 22:53 Results - Labs CBC & Chem 7: 03/16/21 22:53 03/16/21 22:53 Labs: Laboratory Last Values WBC 10.5 K/mm3 (4.5-11.0) 03/16/21 22:53 RBC 3.94 M/mm3 (3.65-5.03) 03/16/21 22:53 Hgb 11.3 gm/dl (11.8-15.2) L 03/16/21 22:53 Hct 34.3 % (35.5-45.6) L 03/16/21 22:53 MCV 87 fl (84-94) 03/16/21 22:53 MCH 29 pg (28-32) 03/16/21 22:53 MCHC 33 % (32-34) 03/16/21 22:53 RDW 19.3 % (13.2-15.2) H 03/16/21 22:53 Plt Count 237 K/mm3 (140-440) 03/16/21 22:53 Lymph % (Auto) 9.7 % (13.4-35.0) L 03/16/21 22:53 [place] % (Auto) 7.4 % (0.0-7.3) H 03/16/21 22:53 Eos % (Auto) 3.5 % (0.0-4.3) 03/16/21 22:53 Baso % (Auto) 1.2 % (0.0-1.8) 03/16/21 22:53 Lymph # (Auto) 1.0 K/mm3 (1.2-5.4) L 03/16/21 22:53 [place] # (Auto) 0.8 K/mm3 (0.0-0.8) 03/16/21 22:53 Eos # (Auto) 0.4 K/mm3 (0.0-0.4) 03/16/21 22:53 Baso # (Auto) 0.1 K/mm3 (0.0-0.1) 03/16/21 22:53 Seg Neutrophils % 78.2 % (40.0-70.0) H 03/16/21 22:53 Seg Neutrophils # 8.2 K/mm3 (1.8-7.7) H 03/16/21 22:53 Sodium 139 mmol/L (137-145) 03/16/21 22:53 Potassium 6.5 mmol/L (3.6-5.0) H* 03/16/21 22:53 Chloride 98.1 mmol/L (98-107) 03/16/21 22:53 Carbon Dioxide 18 mmol/L (22-30) L 03/16/21 22:53 Anion Gap 29 mmol/L 03/16/21 22:53 BUN 57 mg/dL (9-20) H 03/16/21 22:53 Creatinine 17.5 mg/dL (0.8-1.3) H 03/16/21 22:53 Estimated GFR 4 ml/min 03/16/21 22:53 BUN/Creatinine Ratio 3 % 03/16/21 22:53 Glucose 66 mg/dL (75-100) L 03/16/21 22:53 POC Glucose 83 mg/dL (70-105) 03/17/21 05:15 Calcium 8.9 mg/dL (8.4-10.2) 03/16/21 22:53 Total Bilirubin 0.50 mg/dL (0.1-1.2) 03/16/21 22:53 AST 13 units/L (5-40) 03/16/21 22:53 ALT < 5 units/L (7-56) L 03/16/21 22:53 Alkaline Phosphatase 86 units/L (35-129) 03/16/21 22:53 Troponin T 0.071 ng/mL (0.00-0.029) H 03/16/21 22:53 Total Protein 7.7 g/dL (6.3-8.2) 03/16/21 22:53 Albumin 4.3 g/dL (3.9-5) 03/16/21 22:53 Albumin/Globulin Ratio 1.3 % 03/16/21 22:53 Triglycerides 206 mg/dL (2-149) H 03/16/21 22:53 Cholesterol 158 mg/dL (50-199) 03/16/21 22:53 LDL Cholesterol Direct 91 mg/dL (50-130) 03/16/21 22:53 HDL Cholesterol 28 mg/dL (40-59) L 03/16/21 22:53 Cholesterol/HDL Ratio 5.64 % 03/16/21 22:53 - Imaging and Cardiology Chest x-ray: report reviewed Assessment and Plan VTE prophylaxis?: Chemical Plan of care discussed with patient/family: Yes - Patient Problems (1) End-stage renal disease needing dialysis Current Visit: Yes Status: Chronic Plan to address problem: Admit the patient to the medical floor telemetry. Put the patient on renal diet. Avoid nephrotoxic drug. We will consult nephrology for hemodialysis in the morning. Recheck BMP in the morning (2) Hyperkalemia Current Visit: Yes Status: Acute Plan to address problem: Put the patient on hyperkalemia protocol. Insulin 10 unit IV x1 dose, D50 1 ampoule IV x1 dose. Calcium gluconate 1 g IV x1 dose. Kayexalate 60 g p.o. x1 dose. Kayexalate 30 g p.o. every 4 hours x2 dose. Will consult nephrology for dialysis in the morning. Recheck BMP in the morning (3) SOB (shortness of breath) Current Visit: Yes Status: Acute Plan to address problem: Oxygen by nasal cannula 3 L/min. DuoNeb by nebulizer every 4 hours. Albuterol via nebulizer every 4 hours as needed. Reconsult nephrology for dialysis in the morning (4) Seizure Current Visit: No Status: Acute Plan to address problem: Stable. We will continue the home medication (5) Hypertension Current Visit: No Status: Chronic Qualifiers: Hypertension type: essential hypertension Qualified Code(s): I10 - Essential (primary) hypertension Plan to address problem: Hydralazine 10 mg IV every 6 hours as needed. We will monitor the blood pressure closely (6) DVT prophylaxis Current Visit: No Status: Acute Plan to address problem: Heparin 5000 units subcu every 8 hours for DVT prophylaxis. Pepcid 20 mg p.o. twice daily for GI prophylaxis. Patient is a full code
--- NOTE | 2021-03-17 07:20 | Event Note ---
Date: 03/17/21 Patient presented with missed hemodialysis, hyperkalemia and volume overload. Pt need urgent dialysis. HD orders placed.
[2021-03-17] MEDS ORDERED: INSULIN LISPRO 100 UNIT/ML SUB-Q SCH (07:30)
[2021-03-17] MEDS ORDERED: HEPARIN 10,000 UNITS/10 ML VIAL IV PRN (07:30)
[2021-03-17] MEDS ORDERED: SODIUM CHLORIDE 0.9% 100 ML IV PRN (07:30)
[2021-03-17] MEDS ORDERED: IPRATROPIUM/ALBUTEROL SULFATE 3 ML AMPUL.NEB IH SCH (08:00)
--- NOTE | 2021-03-17 09:31 | Consultation ---
History of Present Illness - Reason for Consult Consult date: 03/17/21 end stage renal disease, hyperkalemia - History of Present Illness The patient is a 36 YO male with history significant for HTN, HIV, Anemia, Asthma and ESRD on hemodialysis (TTS) who presented to [facility] ED 03/17 with c/o sob for the few days. Patient missed dialysis on 03/12 and 03/15 due to transporation issues, he did not have a ride. Patient states that he is shortness of breath better with rest and worse exertion and associated with cough. Patient denies fever, chills, nausea, vomiting, chest pain, hemoptysis or leg swelling. Labs significant for K 6.5 and bicarb 18. CXR showed central vascular congestion. Nephrology was consulted for ESRD and hyperkalemia management. Past History Past Medical History: dialysis, ESRD, heart failure, HIV/AIDS, hypertension, seizures Medications and Allergies Allergies Allergy/AdvReac Type Severity Reaction Status Date / Time abacavir AdvReac Unknown Unknown Verified 02/03/21 16:28 Home Medications Medication Instructions Recorded Confirmed Last Taken Type Darunavir [Prezista] 800 mg PO DAILY 02/20/20 02/18/21 02/17/21 12:00 History Dolutegravir [Tivicay] 50 mg PO DAILY 02/20/20 02/18/21 02/17/21 12:00 History Ritonavir 100 mg PO DAILY 02/20/20 02/18/21 02/17/21 12:00 History amLODIPine 5 mg PO DAILY 02/20/20 02/18/21 02/17/21 12:00 History HYDROcodone/APAP 7.5-325 [[place] 1 each PO Q6HR PRN #30 tablet 02/18/21 Unknown Rx 7.5/325] Active Meds: Active Medications Acetaminophen (Acetaminophen 325 Mg Tab) 650 mg PO Q4H PRN PRN Reason: Pain MILD(1-3)/Fever >100.5/HIGHTOWER Albuterol (Albuterol 2.5 Mg/3 Ml Nebu) 2.5 mg IH Q4HRT PRN PRN Reason: Shortness Of Breath Albuterol/Ipratropium (Ipratropium/Albuterol Sulfate 3 Ml Ampul.Neb) 1 ampul IH Q6HRT [facility] Amlodipine Besylate (Amlodipine 5 Mg Tab) 5 mg PO DAILY [facility] Darunavir (Darunavir 800 Mg Tab) 800 mg PO DAILY [facility] Dextrose (Dextrose 50% In Water (25gm) 50 Ml Syringe) 50 ml IV Q30MIN PRN; Protocol PRN Reason: Hypoglycemia Famotidine (Famotidine 10 Mg Tab) 10 mg PO BID [facility] Heparin Sodium (Porcine) (Heparin 5,000 Unit/1 Ml Vial) 5,000 unit SUB-Q Q8HR [facility] Heparin Sodium (Porcine) (Heparin 10,000 Units/10 Ml Vial) 3,000 unit IV ALTHEA PRN PRN Reason: hemodialysis Hydromorphone HCl (Hydromorphone 1 Mg/1 Ml Inj) 0.5 mg IV Q3H PRN PRN Reason: Pain , Severe (7-10) Sodium Chloride (Nacl 0.9%) 100 mls @ 999 mls/hr IV ALTHEA PRN PRN Reason: Hypotension Ondansetron HCl (Ondansetron 4 Mg/2 Ml Inj) 4 mg IV Q8H PRN PRN Reason: Nausea And Vomiting Oxycodone/Acetaminophen (Oxycodone /Acetaminophen 5-325mg Tab) 1 tab PO Q6H PRN PRN Reason: Pain, Moderate (4-6) Ritonavir (Ritonavir 100 Mg Tab) 100 mg PO DAILY [facility] Sodium Chloride (Sodium Chloride 0.9% 10 Ml Flush Syringe) 10 ml IV BID [facility] Sodium Chloride (Sodium Chloride 0.9% 10 Ml Flush Syringe) 10 ml IV PRN PRN PRN Reason: LINE FLUSH Sodium Polystyrene Sulfonate (Sodium Polystyrene 15 Gm/60 Ml Oral Liqd) 30 gm PO Q6HR [facility] Stop: 03/17/21 18:01 Review of Systems Constitutional: no weight loss, no weight gain, no fever, no chills, no weakness Cardiovascular: orthopnea, shortness of breath, dyspnea on exertion, high blood pressure, decreased exercise tolerance, no chest pain, no edema, no syncope, no lightheadedness, no leg edema Respiratory: cough, shortness of breath, dyspnea on exertion, no hemoptysis Gastrointestinal: no abdominal pain, no nausea, no vomiting, no diarrhea, no melena Genitourinary Male: no dysuria, no hematuria Musculoskeletal: no muscle weakness Neurological: no syncope, no convulsions, no aphasia, no change in speech, no change in mentation, no confusion Exam - Vital Signs Vital signs: Vital Signs Temp Pulse Resp BP Pulse Ox 100.2 F H 114 H 20 137/92 97 03/16/21 22:44 03/16/21 22:44 03/16/21 22:44 03/16/21 22:44 03/16/21 22:44 Results - Lab Results 03/16/21 22:53 03/16/21 22:53 Most recent lab results ABG pH 7.398 (7.320-7.450) 03/17/21 09:20 ABG O2 Saturation 82.5 (0-100) 03/17/21 09:20 Calcium 8.9 mg/dL (8.4-10.2) 03/16/21 22:53 Assessment and Plan 1. ESRD: Patient is on maintenance hemodialysis three times a week,TTS schedule. Missed HD 03/15. Hemodialysis: . 2. FEN: Hyperkalemia, s/p multiple meds, HD today. Anion-gap metabolic acidosis, HD today. Volume overload, UF with HD as tolerated. Monitor lytes and volume status. 3. Anemia: Monitor. 4. Acute hypoxic resp failure: CXR showed vascular congestion. Suspect 2/2 pulmonary edema and volume overload. COVID test pending. UF with HD as tolerated. Currently on NC O2. Monitor. 5. HIV: Continue home meds. 6. HTN: Monitor BP. 7. Medical non-compliance: Counseled. Subjective: Patient seen and examined at the bedside. Examination: General appearance: well-developed, appears stated age, appears emaciated, mild distress, on NC O2 HEENT: ATNC, DEN Neck: trachea midline Respiratory: bibasal ralea heard Heart: regular, S1S2, no murmur Abdomen: soft, normoactive bowel sounds, not tender, not distended Integumentary: no obvious rash Neurologic: AO, able to move extremities Ext: no edema Hemodialysis access: R IJ Tunnel catheter
[2021-03-17] MEDS: RITONAVIR 100 MG TAB PO SCH (09:58)
[2021-03-17] MEDS: DOLUTEGRAVIR 50 MG TAB PO SCH (09:59)
[2021-03-17] MEDS: FAMOTIDINE 10 MG TAB PO SCH ×2 (09:59→21:42)
[2021-03-17] MEDS: DARUNAVIR 800 MG TAB PO SCH (09:59)
[2021-03-17] MEDS: amLODIPine 5 MG TAB PO SCH (09:59)
[2021-03-17] MEDS ORDERED: FAMOTIDINE 20 MG TAB PO SCH (10:00)
--- NOTE | 2021-03-17 10:14 | Event Note ---
Date: 03/17/21 Discussed with patient about hemodialysis and consent obtained.
[2021-03-17] MEDS: SODIUM POLYSTYRENE 15 GM/60 ML ORAL LIQD PO SCH ×2 (12:48→16:29)
--- NOTE | 2021-03-17 12:55 | Event Note ---
Date: 03/17/21 Full consult to follow. Patient well known to me as I have seen him his last 2 admits for difficulty in breathing, both in conjunction with missed dialysis and cocaine use. now placed as PUI and pulm consulted for this and respiratory failure. Patient currently in HD. Suggest the following: Check UDS Wean FiO2 for sats >88% post HD BP control and diuresis Will continue to follow.
--- NOTE | 2021-03-17 12:56 | Consultation ---
History of Present Illness Consult date: 03/17/21 Requesting physician: KSENIA FRANKLIN Reason for consult: hypoxemia, other (PUI for COVID 19) History of present illness: 36 y/o male known to me as I have seen him his last 2 admissions for the this same presentation. Patient is not on oxygen therapy at home. Missed HD and presents in acute respiratory failure secondary to volume overload and hypertensive emergency. Patient also with known history of substance abuse. REquired bipap on admission. Now currently in HD. Past History Past Medical History: dialysis, ESRD, heart failure, HIV/AIDS, hypertension, seizures Medications and Allergies Allergies Allergy/AdvReac Type Severity Reaction Status Date / Time abacavir AdvReac Unknown Unknown Verified 02/03/21 16:28 Home Medications Medication Instructions Recorded Confirmed Last Taken Type Darunavir [Prezista] 800 mg PO DAILY 02/20/20 02/18/21 02/17/21 12:00 History Dolutegravir [Tivicay] 50 mg PO DAILY 02/20/20 02/18/21 02/17/21 12:00 History Ritonavir 100 mg PO DAILY 02/20/20 02/18/21 02/17/21 12:00 History amLODIPine 5 mg PO DAILY 02/20/20 02/18/21 02/17/21 12:00 History HYDROcodone/APAP 7.5-325 [[place] 1 each PO Q6HR PRN #30 tablet 02/18/21 Unknown Rx 7.5/325] Active Meds: Active Medications Acetaminophen (Acetaminophen 325 Mg Tab) 650 mg PO Q4H PRN PRN Reason: Pain MILD(1-3)/Fever >100.5/HIGHTOWER Albuterol (Albuterol 2.5 Mg/3 Ml Nebu) 2.5 mg IH Q4HRT PRN PRN Reason: Shortness Of Breath Albuterol/Ipratropium (Ipratropium/Albuterol Sulfate 3 Ml Ampul.Neb) 1 ampul IH Q6HRT [facility] Amlodipine Besylate (Amlodipine 5 Mg Tab) 5 mg PO DAILY [facility] Last Admin: 03/17/21 09:59 Dose: 5 mg Documented by: Darunavir (Darunavir 800 Mg Tab) 800 mg PO DAILY [facility] Last Admin: 03/17/21 09:59 Dose: 800 mg Documented by: Dextrose (Dextrose 50% In Water (25gm) 50 Ml Syringe) 50 ml IV Q30MIN PRN; Protocol PRN Reason: Hypoglycemia Famotidine (Famotidine 10 Mg Tab) 10 mg PO BID [facility] Last Admin: 03/17/21 09:59 Dose: 10 mg Documented by: Heparin Sodium (Porcine) (Heparin 5,000 Unit/1 Ml Vial) 5,000 unit SUB-Q Q8HR [facility] Heparin Sodium (Porcine) (Heparin 10,000 Units/10 Ml Vial) 3,000 unit IV ALTHEA PRN PRN Reason: hemodialysis Hydromorphone HCl (Hydromorphone 1 Mg/1 Ml Inj) 0.5 mg IV Q3H PRN PRN Reason: Pain , Severe (7-10) Sodium Chloride (Nacl 0.9%) 100 mls @ 999 mls/hr IV ALTHEA PRN PRN Reason: Hypotension Ondansetron HCl (Ondansetron 4 Mg/2 Ml Inj) 4 mg IV Q8H PRN PRN Reason: Nausea And Vomiting Oxycodone/Acetaminophen (Oxycodone /Acetaminophen 5-325mg Tab) 1 tab PO Q6H PRN PRN Reason: Pain, Moderate (4-6) Ritonavir (Ritonavir 100 Mg Tab) 100 mg PO DAILY [facility] Last Admin: 03/17/21 09:58 Dose: 100 mg Documented by: Sodium Chloride (Sodium Chloride 0.9% 10 Ml Flush Syringe) 10 ml IV BID [facility] Last Admin: 03/17/21 10:00 Dose: 10 ml Documented by: Sodium Chloride (Sodium Chloride 0.9% 10 Ml Flush Syringe) 10 ml IV PRN PRN PRN Reason: LINE FLUSH Sodium Polystyrene Sulfonate (Sodium Polystyrene 15 Gm/60 Ml Oral Liqd) 30 gm PO Q6HR [facility] Stop: 03/17/21 18:01 Last Admin: 03/17/21 12:48 Dose: Not Given Documented by: Review of Systems All systems: negative Physical Examination Vital signs: Vital Signs Temp Pulse Resp BP Pulse Ox 100.2 F H 114 H 20 137/92 97 03/16/21 22:44 03/16/21 22:44 03/16/21 22:44 03/16/21 22:44 03/16/21 22:44 Results - Laboratory Findings CBC and BMP: 03/18/21 04:46 03/18/21 04:46 ABG ABG pH 7.398 (7.320-7.450) 03/17/21 09:20 POC ABG pCO2 27.8 mmHg (32.0-48.0) L 03/17/21 09:20 POC ABG pO2 51.5 mmHg (83-108) L 03/17/21 09:20 POC ABG HCO3 16.8 03/17/21 09:20 ABG O2 Saturation 82.5 (0-100) 03/17/21 09:20 Abnormal lab findings: Abnormal Labs 03/16/21 03/16/21 03/17/21 22:53 22:53 05:55 Hgb 11.3 L Hct 34.3 L RDW 19.3 H Lymph % (Auto) 9.7 L [place] % (Auto) 7.4 H Lymph # (Auto) 1.0 L Seg Neutrophils % 78.2 H Seg Neutrophils # 8.2 H POC ABG pCO2 POC ABG pO2 ABG Oxyhemoglobin ABG Sodium ABG Potassium Potassium 6.5 H* Carbon Dioxide 18 L BUN 57 H Creatinine 17.5 H Glucose 66 L POC Glucose 158 H ALT < 5 L Troponin T 0.071 H Triglycerides 206 H HDL Cholesterol 28 L Arterial Blood Ionized Calcium 03/17/21 09:20 Hgb Hct RDW Lymph % (Auto) [place] % (Auto) Lymph # (Auto) Seg Neutrophils % Seg Neutrophils # POC ABG pCO2 27.8 L POC ABG pO2 51.5 L ABG Oxyhemoglobin 81.5 L ABG Sodium 132.5 L ABG Potassium 5.7 H Potassium Carbon Dioxide BUN Creatinine Glucose POC Glucose ALT Troponin T Triglycerides HDL Cholesterol Arterial Blood Ionized Calcium 4.5 L - Diagnostic Findings Chest x-ray: image reviewed Assessment and Plan 36 y/o male with acute respiratory failure and hypoxemia most likely secondary to volume overload and missed HD, concern for COVID 19 1. Check UDS 2. BP control 3. HD 4. Wean FiO2 as tolerated.
[2021-03-17 14:37] LABS: Hepatitis C Virus Antibody Non-Reactive (NonReactive)
--- NOTE | 2021-03-17 14:49 | Event Note ---
Date: 03/17/21 Patient was seen and evaluated this morning. Patient was on BiPAP. Patient had fever and Covid test was ordered. Patient had hyperkalemia and will get emergent hemodialysis. Patient was admitted earlier this morning and continue management as outlined in HPI.
[2021-03-17 14:50] LABS: Hepatitis B Surface Antigen Nonreactive (Negative)
[2021-03-17] MEDS: HEPARIN 5,000 UNIT/1 ML VIAL SUB-Q SCH (21:42)
[2021-03-17] MEDS: IPRATROPIUM/ALBUTEROL SULFATE 3 ML AMPUL.NEB IH SCH (22:00)
[2021-03-18] MEDS: HEPARIN 5,000 UNIT/1 ML VIAL SUB-Q SCH (05:33)
[2021-03-18 05:43] LABS: Basophils # (Auto) 0.1 K/mm3 (0.0-0.1); Basophils % (Auto) 1.9 % (0.0-1.8); Eosinophils # (Auto) 0.3 K/mm3 (0.0-0.4); Eosinophils % (Auto) 5.5 % (0.0-4.3); Hematocrit 35.3 % (35.5-45.6); Hemoglobin 11.7 gm/dl (11.8-15.2); Lymphocytes # (Auto) 1.1 K/mm3 (1.2-5.4); Mean Corpuscular HGB Conc 33 % (32-34); Mean Corpuscular Volume 87 fl (84-94); Monocytes # (Auto) 0.8 K/mm3 (0.0-0.8); Monocytes % (Auto) 14.1 % (0.0-7.3); Platelet Count 184 K/mm3 (140-440); Red Blood Count 4.06 M/mm3 (3.65-5.03)
[2021-03-18 05:52] LABS: Calcium 8.9 mg/dL (8.4-10.2)
--- NOTE | 2021-03-18 08:28 | Progress Note ---
Assessment and Plan 36 y/o male with acute respiratory failure and hypoxemia most likely secondary to volume overload and missed HD, concern for COVID 19 03/18/21: WEan FiO2 to off as tolerated for sats >88%. HD per renal. Suggest checking UDS if having trouble with BP control, cocaine use in the past. Will sign off, call if questions. 1. Check UDS 2. BP control 3. HD 4. Wean FiO2 as tolerated. Subjective Date of service: 03/18/21 Interval history: COVID negative and as of 0400 was on 3 liters with sat of 99%. Objective Vital Signs - 12hr 03/17/21 03/17/21 03/17/21 22:05 22:11 22:16 Temperature Pulse Rate Pulse Rate [ 95 H Throughout] Respiratory Rate Respiratory 18 Rate [ Throughout] Blood Pressure 144/96 144/96 Blood Pressure [Left] O2 Sat by Pulse 95 99 Oximetry 03/17/21 03/17/21 03/17/21 22:21 22:31 22:41 Temperature Pulse Rate Pulse Rate [ Throughout] Respiratory Rate Respiratory Rate [ Throughout] Blood Pressure 144/96 144/96 144/96 Blood Pressure [Left] O2 Sat by Pulse 97 100 99 Oximetry 03/17/21 03/17/21 03/18/21 22:51 23:16 02:00 Temperature 98.9 F Pulse Rate 104 H 96 H Pulse Rate [ Throughout] Respiratory 20 Rate Respiratory Rate [ Throughout] Blood Pressure 144/96 141/103 Blood Pressure [Left] O2 Sat by Pulse 98 98 Oximetry 03/18/21 03/18/21 03/18/21 02:59 04:12 04:20 Temperature 98.7 F Pulse Rate 98 H Pulse Rate [ Throughout] Respiratory 20 Rate Respiratory Rate [ Throughout] Blood Pressure Blood Pressure 146/98 [Left] O2 Sat by Pulse 95 99 96 Oximetry CBC and BMP: 03/18/21 04:46 03/18/21 04:46 ABG, PT/INR, D-dimer: ABG ABG pH 7.398 (7.320-7.450) 03/17/21 09:20 POC ABG pCO2 27.8 mmHg (32.0-48.0) L 03/17/21 09:20 POC ABG pO2 51.5 mmHg (83-108) L 03/17/21 09:20 POC ABG HCO3 16.8 03/17/21 09:20 ABG O2 Saturation 82.5 (0-100) 03/17/21 09:20 PT/INR, D-dimer D-Dimer 893.15 ng/mlDDU (0-234) H 03/17/21 14:18 Abnormal lab findings: Abnormal Labs 03/16/21 03/16/21 03/17/21 22:53 22:53 05:55 Hgb 11.3 L Hct 34.3 L RDW 19.3 H Lymph % (Auto) 9.7 L [place] % (Auto) 7.4 H Eos % (Auto) Baso % (Auto) Lymph # (Auto) 1.0 L Seg Neutrophils % 78.2 H Seg Neutrophils # 8.2 H D-Dimer POC ABG pCO2 POC ABG pO2 ABG Oxyhemoglobin ABG Sodium ABG Potassium Potassium 6.5 H* Chloride Carbon Dioxide 18 L BUN 57 H Creatinine 17.5 H Glucose 66 L POC Glucose 158 H Ferritin ALT < 5 L Troponin T 0.071 H Triglycerides 206 H HDL Cholesterol 28 L Arterial Blood Ionized Calcium 03/17/21 03/17/21 03/17/21 09:20 12:51 14:18 Hgb Hct RDW Lymph % (Auto) [place] % (Auto) Eos % (Auto) Baso % (Auto) Lymph # (Auto) Seg Neutrophils % Seg Neutrophils # D-Dimer 893.15 H POC ABG pCO2 27.8 L POC ABG pO2 51.5 L ABG Oxyhemoglobin 81.5 L ABG Sodium 132.5 L ABG Potassium 5.7 H Potassium Chloride Carbon Dioxide BUN Creatinine Glucose POC Glucose Ferritin 1121.0 H ALT Troponin T Triglycerides HDL Cholesterol Arterial Blood Ionized Calcium 4.5 L 03/18/21 03/18/21 04:46 04:46 Hgb 11.7 L Hct 35.3 L RDW 20.0 H Lymph % (Auto) [place] % (Auto) 14.1 H Eos % (Auto) 5.5 H Baso % (Auto) 1.9 H Lymph # (Auto) 1.1 L Seg Neutrophils % Seg Neutrophils # D-Dimer POC ABG pCO2 POC ABG pO2 ABG Oxyhemoglobin ABG Sodium ABG Potassium Potassium Chloride 97.8 L Carbon Dioxide BUN 34 H Creatinine 12.0 H Glucose 74 L POC Glucose Ferritin ALT Troponin T Triglycerides HDL Cholesterol Arterial Blood Ionized Calcium
--- NOTE | 2021-03-18 09:15 | Electrocardiograph Report ---
[facility] Test Date: 2021-03-16 Test Time: 22:46:46 Pat Name: HOLLY PRESTON Department: Room: A487 Gender: M Crab Catcher: LAWSON : 1985 Requested By: ANJANA BEAN III Order Number: [id number] Reading MD: Vance Reyes Measurements Intervals [place] Rate: 106 P: 55 MI: 188 QRS: 90 QRSD: 78 T: 116 QT: 389 QTc: 518 Interpretive Statements Sinus tachycardia Probable LVH with secondary repol abnrm nonspecific st-t No previous ECG available for comparison Electronically Signed On 03-18-2021 9:14:40 EDT by Vance Reyes
--- NOTE | 2021-03-18 09:32 | Progress Note ---
Assessment and Plan 1. ESRD: Patient is on maintenance hemodialysis three times a week,TTS schedule. Missed HD 03/12, 03/15. Hemodialysis: 03/17. 2. FEN: Hyperkalemia, improved with HD. Anion-gap metabolic acidosis, improved. Volume overload, improved with HD. Limit fluid intake. Monitor lytes and volume status. 3. Anemia: Monitor. 4. Acute hypoxic resp failure: CXR showed vascular congestion. Suspect 2/2 pulmonary edema and volume overload. COVID test negative. UF with HD as tolerated. Currently on [place] O2. Monitor. 5. HIV: Continue home meds. 6. HTN: Monitor BP. 7. Medical non-compliance: Counseled. Subjective: Patient seen and examined at the bedside. Patient feeling better and wants to go home. Examination: General appearance: well-developed, appears stated age, appears emaciated, mild distress, on NC O2 HEENT: ATNC, DEN Neck: trachea midline Respiratory: ctab Heart: regular, S1S2, no murmur Abdomen: soft, normoactive bowel sounds, not tender, not distended Integumentary: no obvious rash Neurologic: AO, able to move extremities Ext: no edema Hemodialysis access: R IJ Tunnel catheter Subjective Date of service: 03/18/21 Objective - Vital Signs Vital signs: Vital Signs - 12hr 03/17/21 03/17/21 03/17/21 22:05 22:11 22:16 Temperature Pulse Rate Pulse Rate [ 95 H Throughout] Respiratory Rate Respiratory 18 Rate [ Throughout] Blood Pressure 144/96 144/96 Blood Pressure [Left] O2 Sat by Pulse 95 99 Oximetry 03/17/21 03/17/21 03/17/21 22:21 22:31 22:41 Temperature Pulse Rate Pulse Rate [ Throughout] Respiratory Rate Respiratory Rate [ Throughout] Blood Pressure 144/96 144/96 144/96 Blood Pressure [Left] O2 Sat by Pulse 97 100 99 Oximetry 03/17/21 03/17/21 03/18/21 22:51 23:16 02:00 Temperature 98.9 F Pulse Rate 104 H 96 H Pulse Rate [ Throughout] Respiratory 20 Rate Respiratory Rate [ Throughout] Blood Pressure 144/96 141/103 Blood Pressure [Left] O2 Sat by Pulse 98 98 Oximetry 03/18/21 03/18/21 03/18/21 02:59 04:12 04:20 Temperature 98.7 F Pulse Rate 98 H Pulse Rate [ Throughout] Respiratory 20 Rate Respiratory Rate [ Throughout] Blood Pressure Blood Pressure 146/98 [Left] O2 Sat by Pulse 95 99 96 Oximetry - Lab 03/18/21 04:46 03/18/21 04:46 Most recent lab results ABG pH 7.398 (7.320-7.450) 03/17/21 09:20 ABG O2 Saturation 82.5 (0-100) 03/17/21 09:20 Calcium 8.9 mg/dL (8.4-10.2) 03/18/21 04:46 Medications & Allergies - Medications Allergies/Adverse Reactions: Allergies abacavir Adverse Reaction (Unknown, Verified 02/03/21 16:28) Unknown Home Medications: Home Medications Medication Instructions Recorded Confirmed Last Taken Type Darunavir [Prezista] 800 mg PO DAILY 02/20/20 02/18/21 02/17/21 12:00 History Dolutegravir [Tivicay] 50 mg PO DAILY 02/20/20 02/18/21 02/17/21 12:00 History Ritonavir 100 mg PO DAILY 02/20/20 02/18/21 02/17/21 12:00 History amLODIPine 5 mg PO DAILY 02/20/20 02/18/21 02/17/21 12:00 History HYDROcodone/APAP 7.5-325 [[place] 1 each PO Q6HR PRN #30 tablet 02/18/21 Unknown Rx 7.5-325 mg TAB] Active Medications: Generic Name Dose Route Start Last Admin Trade Name Freq PRN Reason Stop Dose Admin Acetaminophen 650 mg 03/17/21 05:57 03/17/21 16:28 Acetaminophen 325 Mg Tab PO 650 mg Q4H PRN Administration Pain MILD(1-3)/Fever >100.5/HIGHTOWER Albuterol 2.5 mg 03/17/21 05:57 Albuterol 2.5 Mg/3 Ml Nebu IH Q4HRT PRN Shortness Of Breath Albuterol/Ipratropium 1 ampul 03/17/21 20:00 03/17/21 22:00 Ipratropium/Albuterol Sulfate 3 Ml Ampul.Neb IH 1 ampul BIDRT AWA Administration Amlodipine Besylate 5 mg 03/17/21 10:00 03/17/21 09:59 Amlodipine 5 Mg Tab PO 5 mg DAILY [facility]WA Administration Darunavir 800 mg 03/17/21 10:00 03/17/21 09:59 Darunavir 800 Mg Tab PO 800 mg DAILY AWA Administration Dextrose 50 ml 03/17/21 05:57 Dextrose 50% In Water (25gm) 50 Ml Syringe IV Q30MIN PRN Hypoglycemia Protocol Famotidine 10 mg 03/17/21 10:00 03/17/21 21:42 Famotidine 10 Mg Tab PO 10 mg BID [facility]WA Administration Heparin Sodium (Porcine) 5,000 unit 03/17/21 06:00 03/18/21 05:33 Heparin 5,000 Unit/1 Ml Vial SUB-Q 5,000 unit Q8HR [facility] Administration Heparin Sodium (Porcine) 3,000 unit 03/17/21 07:30 Heparin 10,000 Units/10 Ml Vial IV ALTHEA PRN hemodialysis Hydromorphone HCl 0.5 mg 03/17/21 05:57 Hydromorphone 1 Mg/1 Ml Inj IV Q3H PRN Pain , Severe (7-10) Sodium Chloride 100 mls @ 999 mls/hr 03/17/21 07:30 Nacl 0.9% IV ALTHEA PRN Hypotension Ondansetron HCl 4 mg 03/17/21 05:57 Ondansetron 4 Mg/2 Ml Inj IV Q8H PRN Nausea And Vomiting Oxycodone/Acetaminophen 1 tab 03/17/21 05:57 Oxycodone /Acetaminophen 5-325mg Tab PO Q6H PRN Pain, Moderate (4-6) Ritonavir 100 mg 03/17/21 10:00 03/17/21 09:58 Ritonavir 100 Mg Tab PO 100 mg DAILY AWA Administration Sodium Chloride 10 ml 03/17/21 10:00 03/17/21 21:42 Sodium Chloride 0.9% 10 Ml Flush Syringe IV 10 ml BID [facility]WA Administration Sodium Chloride 10 ml 03/17/21 05:57 Sodium Chloride 0.9% 10 Ml Flush Syringe IV PRN PRN LINE FLUSH
[2021-03-18] MEDS: RITONAVIR 100 MG TAB PO SCH (09:53)
[2021-03-18] MEDS: DOLUTEGRAVIR 50 MG TAB PO SCH (09:53)
[2021-03-18] MEDS: FAMOTIDINE 10 MG TAB PO SCH (09:53)
[2021-03-18] MEDS: DARUNAVIR 800 MG TAB PO SCH (09:53)
--- NOTE | 2021-03-18 09:58 | Discharge Summary ---
Providers - Providers Date of Admission: 03/17/21 13:23 Date of discharge: 03/18/21 Attending physician: KSENIA FRANKLIN MD 03/17/21 00:59 Consult to Physician [CONS] Routine Comment: Dr. Calvo spoke with Dr. Stephenson @ 0057 Consulting Provider: ESTHER STEPHENSON Physician Instructions: Reason For Exam: esrd, high k 03/17/21 05:58 Consult to Dietitian/Nutrition [CONS] Routine Physician Instructions: Reason For Exam: poor oral intake Reason for Consult: Diet education 03/17/21 09:15 Consult to Dietitian/Nutrition [CONS] Routine Physician Instructions: Reason For Exam: Reason for Consult: Poor oral intake 03/17/21 10:06 Consult to Physician [CONS] Routine Comment: Consulting Provider: SUNNY HICKMAN Physician Instructions: Reason For Exam: Acute respiratory failure, PUI Primary care physician: CUTTER GAS Hospitalization Reason for admission: Acute hypoxic respiratory failure, fluid overload, missed dialysis Condition: Stable Hospital course: History of present illness: 36-year-old male with past medical history of end-stage renal disease on d ialysis, hypertension, CHF was brought to the hospital because of shortness of breath and missed dialysis. Patient is on hemodialysis on Sunday and Sunday. He missed his dialysis on Sunday because he did not have a ride. patient states that shortness of breath better with rest and worse exertion. Patient denies fever and chills. Patient denies cough. Patient denies nausea vomiting. Patient denies chest pain. Patient states he missed 1 session. In the emergency room patient is found to have potassium of 6.5, BUN 57 and creatinine was 17.5. Subsequently Case discussed with nephrology Dr. Stephenson will HD the patient in the morning Hospital course Patient was initially on BiPAP and after hemodialysis was done patient was on room air without any distress. Patient's hyperkalemia resolved. Patient is doing well. Patient's blood pressure was controlled. Patient advised extensively to be compliant with his dialysis and discharged home. Discussed with nephrology and he is okay to discharge home. Management plan was discussed in detail and patient verbalized she understands the plan of care. Disposition: 01 HOME / SELF CARE / HOMELESS Final Discharge Diagnosis (Prints w/discharge instructions): Acute hypoxic respiratory failure. Fluid overload. Missed dialysis. Hyperkalemia Time spent for discharge: 35-minutes - Discharge Diagnoses (1) Hyperkalemia Status: Acute (2) Pulmonary edema Status: Acute Qualifiers: Chronicity: acute Qualified Code(s): J81.0 - Acute pulmonary edema (3) SOB (shortness of breath) Status: Acute (4) End-stage renal disease needing dialysis Status: Chronic (5) Acute respiratory failure with hypoxia Status: Acute (6) Noncompliance Status: Acute (7) Uremia Status: Acute (8) HIV (human immunodeficiency virus infection) Status: Chronic Qualifiers: HIV symptom status: asymptomatic, with no history of HIV-related illness Qualified Code(s): Z21 - Asymptomatic human immunodeficiency virus [HIV] infection status (9) Hypertension Status: Chronic Qualifiers: Hypertension type: essential hypertension Core Measure Documentation - Palliative Care Palliative Care/ Comfort Measures: Not Applicable - Core Measures Any of the following diagnoses?: none Exam - Physical Exam Narrative exam: Not in cardiopulmonary distress. The patient appeared well nourished and normally developed. Vital signs as documented. Head exam is unremarkable. No scleral icterus . Neck is without jugular venous distension, thyromegaly, or carotid bruits. Lungs are clear to auscultation. Cardiac exam reveals regular rate and Rhythm. Abdominal exam reveals normal bowel sounds, nontender, no organomegaly. Extremities are nonedematous and both femoral and pedal pulses are normal. GLAZIER ARTIST: Alert and oriented 3. No focal weakness. - Constitutional Vitals: Temp Pulse Resp BP Pulse Ox 98.7 F 98 H 20 146/98 96 03/18/21 04:20 03/18/21 04:20 03/18/21 04:20 03/18/21 04:20 03/18/21 04:20 Plan Activity: no restrictions Weight Bearing Status: Full Weight Bearing Diet: low salt, renal Assessment: CONTINUE DIALYSIS Sunday AND SUNDAY AT [facility] return to emergency department if missed dialysis , no blood pressure no sticks in right arm. Follow up with: GISELA WHEELER MD [Primary Care Provider] - 7 Days
[2021-03-18] MEDS: amLODIPine 5 MG TAB PO SCH (10:00)
[2021-03-18 10:01] VITALS: BP 139/64
[2021-03-18] MEDS: IPRATROPIUM/ALBUTEROL SULFATE 3 ML AMPUL.NEB IH SCH (11:28)
== END 2021-03-18 10:49 | disposition home or self-care (01) | DRG 640 ==
LOC: ED 20:47 → 4A 03-17 01:07 → OBSVTOIN 03-17 13:23
PROVIDERS: ADMIT Hospitalist; ATTEND Internal Medicine
PROC: 4A033R1 Measurement of Arterial Saturation, Peripheral, Percutaneous Approach (ICD-10-PCS; principal; 2021-03-17)
PROC: 5A09357 Assistance with Respiratory Ventilation, Less than 24 Consecutive Hours, Continuous Positive Airway Pressure (ICD-10-PCS; 2021-03-17)
PROC: 5A1D70Z Performance of Urinary Filtration, Intermittent, Less than 6 Hours Per Day (ICD-10-PCS; 2021-03-17)
DX: E87.5 Hyperkalemia (principal); J96.01 Acute respiratory failure with hypoxia; N18.6 End stage renal disease; I13.2 Hypertensive heart and chronic kidney disease with heart failure and with stage 5 chronic kidney disease, or end stage renal disease; B20 Human immunodeficiency virus [HIV] disease; Z20.822 Contact with and (suspected) exposure to COVID-19; K21.9 Gastro-esophageal reflux disease without esophagitis; R56.9 Unspecified convulsions; E87.2 Acidosis; M19.90 Unspecified osteoarthritis, unspecified site; G43.909 Migraine, unspecified, not intractable, without status migrainosus; F17.200 Nicotine dependence, unspecified, uncomplicated; D64.9 Anemia, unspecified; I50.9 Heart failure, unspecified; Z91.14 Patient's other noncompliance with medication regimen; Z88.8 Allergy status to other drugs, medicaments and biological substances; Z99.2 Dependence on renal dialysis; Z79.899 Other long term (current) drug therapy
CPT/HCPCS: 36415; 36600; 71046; 80048; 80053; 80061; 80074; 82728; 82805; 82962; 84145; 84484; 85025; 85379; 87641; 93005; 94640; 94660; 94760; G0378; J0610; J1644; J1815; U0003

== ENCOUNTER 2021-04-25 21:39 | Emergency (ER) | payer MEDICARE ==
[2021-04-25] MEDS ORDERED: ALBUTEROL 2.5 MG/3 ML NEBU IH ONE (23:56)
--- NOTE | 2021-04-25 23:56 | Emergency Department Report ---
ED General Adult HPI - General Chief complaint: Fever Stated complaint: BREATHING COMPLICATIONS Time Seen by Provider: 04/25/21 23:55 Source: patient Mode of arrival: Ambulatory Limitations: No Limitations - History of Present Illness Initial comments: Patient presents with fever and cough and trouble breathing. He states that he came in because of the symptoms through the been present about a week. They have progressively worsened. Over the last 2 days, he has gotten much worse. Cough has been producing a yellowish to brownish phlegm. He has no hemoptysis. There has been no vomiting or diarrhea. He has had fevers associate with this. He has had exposures to coronavirus. He is not vaccinated. Patient states that he has not had any recent travel. He just was not feeling well and decided to come here for evaluation. - Related Data Home Medications Medication Instructions Recorded Confirmed Last Taken Darunavir [Prezista] 800 mg PO DAILY 02/20/20 02/18/21 02/17/21 12:00 Dolutegravir [Tivicay] 50 mg PO DAILY 02/20/20 02/18/21 02/17/21 12:00 Ritonavir 100 mg PO DAILY 02/20/20 02/18/21 02/17/21 12:00 amLODIPine 5 mg PO DAILY 02/20/20 02/18/21 02/17/21 12:00 Previous Rx's Medication Instructions Recorded Last Taken Type HYDROcodone/APAP 7.5-325 [[place] 1 each PO Q6HR PRN #30 tablet 02/18/21 Unknown Rx 7.5-325 mg TAB] Albuterol Sulfate [Proair 90 mcg IH 4XD #1 aer.pw.bas 04/26/21 Unknown Rx Digihaler] Benzonatate [Tessalon Perles] 100 mg PO Q8HR #20 capsule 04/26/21 Unknown Rx Prednisone [predniSONE 10 mg 10 mg PO .TAPER #1 tab.ds.pk 04/26/21 Unknown Rx (6-Day Pack, 21 Tabs)] Allergies Allergy/AdvReac Type Severity Reaction Status Date / Time abacavir AdvReac Unknown Unknown Verified 02/03/21 16:28 ED Review of Systems ROS: Stated complaint: BREATHING COMPLICATIONS Other details as noted in HPI Comment: All other systems reviewed and negative Constitutional: chills, fever Eyes: denies: eye pain ENT: denies: ear pain Respiratory: see HPI Cardiovascular: denies: chest pain Endocrine: denies: unexplained weight loss Gastrointestinal: denies: abdominal pain Genitourinary: denies: dysuria Musculoskeletal: denies: back pain Skin: denies: rash Neurological: denies: headache Hematological/Lymphatic: denies: easy bruising ED Past Medical Hx - Past Medical History Previous Medical History?: Yes Hx Hypertension: Yes Hx Congestive Heart Failure: Yes Hx Diabetes: No Hx GERD: Yes Hx Renal Disease: Yes Hx Arthritis: ( HX TENNIS ELBOW) Hx Headaches / Migraines: Yes (MIGRAINES) Hx Seizures: Yes (X1) Hx Asthma: Yes Hx COPD: No Hx HIV: No Additional medical history: HIV, ESRD, Hemodialysis , . Sat - Surgical History Past Surgical History?: Yes Additional Surgical History: fistula to left wrist. port to chest - Family History Family history: hypertension - Social History Smoking Status: Never Smoker - Medications Home Medications: Home Medications Medication Instructions Recorded Confirmed Last Taken Type Darunavir [Prezista] 800 mg PO DAILY 02/20/20 02/18/21 02/17/21 12:00 History Dolutegravir [Tivicay] 50 mg PO DAILY 02/20/20 02/18/21 02/17/21 12:00 History Ritonavir 100 mg PO DAILY 02/20/20 02/18/21 02/17/21 12:00 History amLODIPine 5 mg PO DAILY 02/20/20 02/18/21 02/17/21 12:00 History HYDROcodone/APAP 7.5-325 [[place] 1 each PO Q6HR PRN #30 tablet 02/18/21 Unknown Rx 7.5-325 mg TAB] Albuterol Sulfate [Proair 90 mcg IH 4XD #1 aer.pw.bas 04/26/21 Unknown Rx Digihaler] Benzonatate [Tessalon Perles] 100 mg PO Q8HR #20 capsule 04/26/21 Unknown Rx Prednisone [predniSONE 10 mg 10 mg PO .TAPER #1 tab.ds.pk 04/26/21 Unknown Rx (6-Day Pack, 21 Tabs)] ED Physical Exam - General Limitations: No Limitations, Other (Emaciated) General appearance: alert, in distress (Mild) - Head Head exam: Present: atraumatic, normocephalic, normal inspection - Eye Eye exam: Present: normal appearance, EOMI. Absent: scleral icterus - ENT ENT exam: Present: normal exam, mucous membranes dry - Neck Neck exam: Present: normal inspection. Absent: meningismus - Respiratory Respiratory exam: Present: respiratory distress (Mild), rhonchi (Bilateral) - Cardiovascular Cardiovascular Exam: Present: normal rhythm, tachycardia - GI/Abdominal GI/Abdominal exam: Present: soft. Absent: tenderness - Extremities Exam Extremities exam: Present: normal capillary refill. Absent: pedal edema - Back Exam Back exam: Absent: CVA tenderness (R), CVA tenderness (L) - Neurological Exam Neurological exam: Present: alert, oriented X3. Absent: motor sensory deficit - Psychiatric Psychiatric exam: Present: normal affect, normal mood - Skin Skin exam: Present: warm, dry ED Course Vital Signs 04/25/21 23:55 Temperature 98.0 F Pulse Rate 109 H Respiratory 18 Rate Blood Pressure 185/129 O2 Sat by Pulse 98 Oximetry - Reevaluation(s) Reevaluation #1: 04/25/21 23:56 xr ordered. Reevaluation #2: 04/26/21 01:39 Chest x-ray was reviewed. Patient was discharged. ED Medical Decision Making - Medical Decision Making Patient present with shortness of breath. He has had a cough. There is no radiographic evidence of pneumonia or congestive heart failure. There is no pneumothorax. Patient has had a known coronavirus exposure, but does not have radiographic findings suggestive of COVID-19. This still could be coronavirus. He will be treated empirically with steroids. He was given albuterol. Patient was instructed to isolate and quarantine at home. Critical Care Time: No Critical care attestation.: If time is entered above; I have spent that time in minutes in the direct care of this critically ill patient, excluding procedure time. ED Disposition Clinical Impression: Acute URI, Dyspnea, Suspected COVID-19 virus infection Disposition: HOME / SELF CARE / HOMELESS Is pt being admited?: No Does the pt Need Aspirin: No Condition: Stable Instructions: Shortness of Breath, Adult, [id number], Viral Respiratory Infection, [id number] Additional Instructions: Drink plenty water. Return for problems. Follow-up with your regular doctor for recheck. Continue home medication. Prescriptions: Prednisone [predniSONE 10 mg (6-Day Pack, 21 Tabs)] 10 mg PO .TAPER #1 tab.ds.pk Albuterol Sulfate [Proair Digihaler] 90 mcg IH 4XD #1 aer.pw.bas Benzonatate [Tessalon Perles] 100 mg PO Q8HR #20 capsule Referrals: PRIMARY CAREMD [Referring] - 3-5 Days LAYLA SOSA MD [Staff Physician] - 3-5 Days
--- NOTE | 2021-04-26 01:14 | XRay Report ---
XR chest routine 2V INDICATION / CLINICAL INFORMATION: cough. COMPARISON: 1121 FINDINGS: SUPPORT DEVICES: Unchanged. HEART /PULMONARY VASCULATURE: No significant abnormality. LUNGS / PLEURA: Interval development of patchy airspace opacities within the right mid and lower lung and left midlung. No sizable pleural effusion. No pneumothorax. ADDITIONAL FINDINGS: No significant additional findings. IMPRESSION: Moderate patchy airspace opacities within the mid to lower lungs, greater on the right. Findings are suspicious for pneumonia. Signer Name: Tab Pope MD Signed: 04/26/2021 1:10 AM Workstation Name: [id number]
[2021-04-26 02:15] VITALS: BP 161/113
== END 2021-04-26 02:10 | disposition home or self-care (01) ==
LOC: ED 21:39
DX: J06.9 Acute upper respiratory infection, unspecified (principal); R06.00 Dyspnea, unspecified; Z20.822 Contact with and (suspected) exposure to COVID-19; I13.2 Hypertensive heart and chronic kidney disease with heart failure and with stage 5 chronic kidney disease, or end stage renal disease; N18.6 End stage renal disease; K21.9 Gastro-esophageal reflux disease without esophagitis; M19.90 Unspecified osteoarthritis, unspecified site; G43.909 Migraine, unspecified, not intractable, without status migrainosus; R56.9 Unspecified convulsions; J45.909 Unspecified asthma, uncomplicated; B20 Human immunodeficiency virus [HIV] disease; Z98.890 Other specified postprocedural states; Z88.7 Allergy status to serum and vaccine
CPT/HCPCS: 71046; 99283

== ENCOUNTER 2021-05-22 09:46 | Emergency (ER) | payer MEDICARE ==
[2021-05-22] MEDS ORDERED: LORazepam 2 MG/ML VIAL IV ONE (10:20)
[2021-05-22] MEDS ORDERED: FUROSEMIDE 100 MG/10 ML INJ IV ONE (10:20)
--- NOTE | 2021-05-22 10:36 | Emergency Department Report ---
ED Shortness of Breath HPI - General Chief Complaint: Dyspnea/Respdistress Stated Complaint: MARTHA Time Seen by Provider: 05/22/21 10:10 Source: patient Mode of arrival: Ambulatory Limitations: Physical Limitation - History of Present Illness Initial Comments: Patient presents secondary to shortness of breath. He has a long history of renal disease secondary to HIV. He is on dialysis. He missed his dialysis treatment Sunday. He was dialyzed on . He believes that he is volume overloaded. This happened before. He states that he feels more short of breath when he lies down. He does describe to orthopnea. Patient has no chest pain. There is no vomiting or diarrhea. He has no fevers or chills. There is no significant cough. - Related Data Home Medications Medication Instructions Recorded Confirmed Last Taken Darunavir [Prezista] 800 mg PO DAILY 02/20/20 02/18/21 02/17/21 12:00 Dolutegravir [Tivicay] 50 mg PO DAILY 02/20/20 02/18/21 02/17/21 12:00 Ritonavir 100 mg PO DAILY 02/20/20 02/18/21 02/17/21 12:00 amLODIPine 5 mg PO DAILY 02/20/20 02/18/21 02/17/21 12:00 Previous Rx's Medication Instructions Recorded Last Taken Type HYDROcodone/APAP 7.5-325 [[place] 1 each PO Q6HR PRN #30 tablet 02/18/21 Unknown Rx 7.5-325 mg TAB] Albuterol Sulfate [Proair 90 mcg IH 4XD #1 aer.pw.bas 04/26/21 Unknown Rx Digihaler] Benzonatate [Tessalon Perles] 100 mg PO Q8HR #20 capsule 04/26/21 Unknown Rx Prednisone [predniSONE 10 mg 10 mg PO .TAPER #1 tab.ds.pk 04/26/21 Unknown Rx (6-Day Pack, 21 Tabs)] Allergies Allergy/AdvReac Type Severity Reaction Status Date / Time abacavir AdvReac Unknown Unknown Verified 05/22/21 10:25 ED Review of Systems ROS: Stated complaint: MARTHA Other details as noted in HPI Comment: All other systems reviewed and negative Constitutional: denies: fever Eyes: denies: vision change ENT: denies: throat pain Respiratory: denies: cough Cardiovascular: denies: chest pain Endocrine: denies: unexplained weight loss Gastrointestinal: denies: abdominal pain Genitourinary: denies: dysuria Musculoskeletal: denies: back pain Skin: denies: rash Neurological: denies: headache Hematological/Lymphatic: denies: easy bruising ED Past Medical Hx - Past Medical History Hx Hypertension: Yes Hx Congestive Heart Failure: Yes Hx Diabetes: No Hx GERD: Yes Hx Renal Disease: Yes Hx Arthritis: ( HX TENNIS ELBOW) Hx Headaches / Migraines: Yes (MIGRAINES) Hx Seizures: Yes (X1) Hx Asthma: Yes Hx COPD: No Hx HIV: No Additional medical history: HIV, ESRD, Hemodialysis Tues, Th. Sat - Surgical History Additional Surgical History: fistula to left wrist. port to chest - Family History Family history: hypertension - Social History Smoking Status: Never Smoker - Medications Home Medications: Home Medications Medication Instructions Recorded Confirmed Last Taken Type Darunavir [Prezista] 800 mg PO DAILY 02/20/20 02/18/21 02/17/21 12:00 History Dolutegravir [Tivicay] 50 mg PO DAILY 02/20/20 02/18/21 02/17/21 12:00 History Ritonavir 100 mg PO DAILY 02/20/20 02/18/21 02/17/21 12:00 History amLODIPine 5 mg PO DAILY 02/20/20 02/18/21 02/17/21 12:00 History HYDROcodone/APAP 7.5-325 [[place] 1 each PO Q6HR PRN #30 tablet 02/18/21 Unknown Rx 7.5-325 mg TAB] Albuterol Sulfate [Proair 90 mcg IH 4XD #1 aer.pw.bas 04/26/21 Unknown Rx Digihaler] Benzonatate [Tessalon Perles] 100 mg PO Q8HR #20 capsule 04/26/21 Unknown Rx Prednisone [predniSONE 10 mg 10 mg PO .TAPER #1 tab.ds.pk 04/26/21 Unknown Rx (6-Day Pack, 21 Tabs)] ED Physical Exam - General Limitations: No Limitations, Other (Pulse ox was 100% on a nonrebreather.) General appearance: alert, in distress (Moderate to severe) - Head Head exam: Present: atraumatic, normocephalic, normal inspection - Eye Eye exam: Present: normal appearance, EOMI. Absent: scleral icterus - ENT ENT exam: Present: normal orophraynx, normal external ear exam - Neck Neck exam: Present: normal inspection. Absent: meningismus - Respiratory Respiratory exam: Present: respiratory distress (Moderate to severe), rales (Bilateral, right greater than left), accessory muscle use - Cardiovascular Cardiovascular Exam: Present: normal rhythm, tachycardia - GI/Abdominal GI/Abdominal exam: Present: soft. Absent: tenderness - Extremities Exam Extremities exam: Present: normal capillary refill. Absent: pedal edema - Back Exam Back exam: Absent: CVA tenderness (R), CVA tenderness (L) - Neurological Exam Neurological exam: Present: alert, oriented X3, CN II-XII intact. Absent: normal gait, motor sensory deficit - Psychiatric Psychiatric exam: Present: normal affect, normal mood - Skin Skin exam: Present: warm, dry ED Course Vital Signs 05/22/21 05/22/21 10:21 10:24 Pulse Rate 132 H Respiratory 25 H Rate Blood Pressure 155/121 [Left] O2 Sat by Pulse 100 15 L Oximetry - Reevaluation(s) Reevaluation #1: 05/22/21 10:36 IV and labs were ordered. Old records reviewed. Patient agrees to BiPAP if we provide some degree of sedation. He states that he gets claustrophobic. Ativan was ordered. He still makes urine. Due to the profound hypertension and respiratory distress, nitro and Lasix have been ordered. Reevaluation #2: 05/22/21 11:23 Labs have been reviewed. Nephrology has been paged. Dr. Hebert was contacted. He will call back shortly for the admission. Regardless, patient will require admission. Reevaluation #3: 05/22/21 11:31 Dr. Stone is going to come dialyze the patient. Patient is currently vomiting. Compazine was ordered. We will still proceed with admission. IV access is somewhat tenuous. EJ has been requested. ED Medical Decision Making - Lab Data Result diagrams: 05/22/21 10:24 05/22/21 10:24 Rhythm strip: Sinus tachycardia without ectopy. Monitor observe 10 seconds. - EKG Data -: EKG Interpreted by Me - Radiology Data Radiology results: report reviewed - Medical Decision Making Patient presented with shortness of breath and has evidence of volume overload clinically. He does have end-stage renal disease. He missed dialysis on Sunday. Troponin is elevated. That could be a troponin leak. That could be his baseline. He also has evidence of worsening pneumonia radiographically, although I believe this is pulmonary edema, not pneumonia clinically. He does not have a fever or significant leukocytosis that would suggest infectious pathology. Patient will be admitted for serial troponins, renal consult, and likely dialysis. He does make urine. We have ordered Lasix for his diuresis already. He is profoundly hypertensive and a nitro drip will be used to main tain blood pressures. Critical Care Time: Yes Critical care attestation.: If time is entered above; I have spent that time in minutes in the direct care of this critically ill patient, excluding procedure time. Critical Care Time: Critical care time of 60 minutes exclusive of all procedures based on significant renal and metabolic derangement with elevated troponin and respiratory distress. ED Disposition Clinical Impression: End-stage renal disease needing dialysis, Acute respiratory failure with hypoxia, Hypertensive emergency, Elevated troponin, Hyperkalemia Disposition: 09 ADMITTED INPATIENT Is pt being admited?: Yes Condition: Stable Instructions: Hypertension (ED)
[2021-05-22] MEDS ORDERED: NITROGLYCERIN DRIP 50 MG/250 ML BOTTLE IV SCH (11:00)
[2021-05-22 11:01] LABS: Calcium 8.8 mg/dL (8.4-10.2)
[2021-05-22 11:09] LABS: Hematocrit 39.3 % (35.5-45.6); Hemoglobin 12.8 gm/dl (11.8-15.2); Mean Corpuscular HGB Conc 33 % (32-34); Mean Corpuscular Volume 92 fl (84-94); Platelet Count 308 K/mm3 (140-440); Red Blood Count 4.27 M/mm3 (3.65-5.03)
--- NOTE | 2021-05-22 11:13 | XRay Report ---
CHEST 1 VIEW 05/22/2021 10:42 AM INDICATION / CLINICAL INFORMATION: sob. COMPARISON: 2 views of the chest from 04/26/2021 FINDINGS: SUPPORT DEVICES: Unchanged right internal jugular vein PermCath. HEART / MEDIASTINUM: No significant abnormality. LUNGS / PLEURA: Airspace opacities have worsened along the mid/lower lungs. No significant pleural ef fusion. No pneumothorax. ADDITIONAL FINDINGS: No significant additional findings. IMPRESSION: Interval worsening of bilateral pneumonia. Signer Name: Billy Leong MD Signed: 05/22/2021 11:08 AM Workstation Name: [id number]
[2021-05-22 11:21] LABS: Chol/HDL Ratio 3.39 %
[2021-05-22] MEDS ORDERED: PROCHLORPERAZINE EDISYLATE 10 MG/2 ML VIAL IM ONE (11:31)
--- NOTE | 2021-05-22 13:34 | History and Physical Report ---
History of Present Illness Chief complaint: I need dialysis History of present illness: 36 YO Male with ESRD on HD(T,R,Sa), CHF, HTN, HIV, GERD, Mild Intermittent Asthma, Migraine HIGHTOWER, OA presents to ED for evaluation. Patient reported "I missed dialysis". Patient states that he has experienced shortness of breath ov er the past 3 days with persistent and worsening symptoms over the same timeframe. Patient knowledges missed dialysis due to inability to obtain transport to his scheduled dialysis session. Patient knowledges shortness of breath, and decreased exercise tolerance. Patient transported to [facility] via pr ivate vehicle for further care and evaluation of the aforementioned symptoms. The patient was seen and evaluated in the emergency department. All lab and imaging studies reviewed. Patient was found to be using accessory muscles to breathe and was unable to speak in complete sentences. Patient placed on nonrebreather mask with mild improvement in symptoms. Patient found to have clinical signs consistent with acute hypoxemic respiratory failure, chest x-ray revealed bilateral pneumonia. Patient admitted to [facility] and initiated on pneumonia protocol as well as coronavirus protocol. Patient denies fever, chills, chest pain, palpitation, productive cough, skin rash, recent ill contact, or known exposure to COVID-19. Prior admission on 03/17/2021 reviewed. All medication listed at time of admission has been reconciled. Advanced care planning conducted in ED. Patient has not received COVID-19 vaccination. Past History Past Medical History: ESRD, GERD, heart failure, HIV/AIDS, hypertension, seizures Past Surgical History: Other (Dialysis access) Social history: single. denies: smoking, alcohol abuse, prescription drug abuse Family history: diabetes, hypertension Medications and Allergies Allergies Allergy/AdvReac Type Severity Reaction Status Date / Time abacavir AdvReac Unknown Unknown Verified 05/22/21 10:25 Home Medications Medication Instructions Recorded Confirmed Last Taken Type Darunavir [Prezista] 800 mg PO DAILY 02/20/20 02/18/21 02/17/21 12:00 History Dolutegravir [Tivicay] 50 mg PO DAILY 02/20/20 02/18/21 02/17/21 12:00 History Ritonavir 100 mg PO DAILY 02/20/20 02/18/21 02/17/21 12:00 History amLODIPine 5 mg PO DAILY 02/20/20 02/18/21 02/17/21 12:00 History HYDROcodone/APAP 7.5-325 [[place] 1 each PO Q6HR PRN #30 tablet 02/18/21 Unknown Rx 7.5-325 mg TAB] Albuterol Sulfate [Proair 90 mcg IH 4XD #1 aer.pw.bas 04/26/21 Unknown Rx Digihaler] Benzonatate [Tessalon Perles] 100 mg PO Q8HR #20 capsule 04/26/21 Unknown Rx Prednisone [predniSONE 10 mg 10 mg PO .TAPER #1 tab.ds.pk 04/26/21 Unknown Rx (6-Day Pack, 21 Tabs)] Active Meds: Active Medications Nitroglycerin/Dextrose (Tridil Drip 50mg/250ml) 50 mg in 250 mls @ 3 mls/hr IV TITR AWA; Protocol Last Admin: 05/22/21 11:25 Dose: 10 mcg/min, 3 mls/hr Documented by: Review of Systems Constitutional: no weight loss, no weight gain, no fever Ears, nose, mouth and throat: no ear pain, no ear discharge, no decreased hearing, no nose pain Cardiovascular: shortness of breath, decreased exercise tolerance, no chest pain, no orthopnea, no rapid/irregular heart beat, no edema Respiratory: no cough, no cough with sputum, no excessive sputum Gastrointestinal: no abdominal pain, no nausea, no vomiting, no diarrhea, no constipation Genitourinary Male: no hematuria, no flank pain, no discharge, no urinary frequency, no urinary hesitancy Rectal: no pain, no incontinence, no bleeding Musculoskeletal: no neck stiffness, no neck pain, no arm numbness/tingling, no shooting leg pain Integumentary: no rash, no pruritis, no sores, no wounds, no jaundice Neurological: no head injury, no paralysis, no weakness, no numbness, no tingling, no seizures Psychiatric: no anxiety, no change in sleep habits, no sleep disturbances, no hypersomnia, no change in appetite, no suicidal ideation Endocrine: no cold intolerance, no heat intolerance, no excessive thirst, no polydipsia, no polyuria Hematologic/Lymphatic: no easy bruising, no easy bleeding, no lymphadenopathy Allergic/Immunologic: no urticaria, no allergic rhinitis, no anaphylaxis, no angioedema Exam - Constitutional Vitals: Temp Pulse Resp BP Pulse Ox 98.6 F 141 H 35 H 193/139 96 05/22/21 09:50 05/22/21 12:14 05/22/21 12:14 05/22/21 12:08 05/22/21 12:14 General appearance: Present: mild distress - EENT Eyes: Present: PERRL ENT: hearing intact, clear oral mucosa - Neck Neck: Present: supple, normal ROM - Respiratory Respiratory effort: labored, accessory muscle use, stridor Respiratory: bilateral: diminished, rhonchi - Cardiovascular Heart Sounds: Present: S1 & S2. Absent: rub, click - Extremities Extremities: pulses symmetrical, No edema Extremity abnormal: edema Peripheral Pulses: within normal limits - Abdominal General gastrointestinal: Present: soft, non-tender, non-distended, normal bowel sounds Male genitourinary: Present: normal - Integumentary Integumentary: Present: clear, warm, dry - Musculoskeletal Musculoskeletal: generalized weakness - Psychiatric Psychiatric: appropriate mood/affect, intact judgment & insight - Neurologic Neurologic: CNII-XII intact, moves all extremities HEART Score - HEART Score Troponin: Troponin T 0.137 ng/mL (0.00-0.029) H* 05/22/21 10:24 Results - Labs CBC & Chem 7: 05/22/21 10:24 05/22/21 10:24 Labs: Abnormal lab results 05/22/21 05/22/21 Range/Units 10:24 10:24 RDW 23.0 H (13.2-15.2) % Potassium 5.8 H (3.6-5.0) mmol/L BUN 48 H (9-20) mg/dL Creatinine 12.7 H (0.8-1.3) mg/dL Troponin T 0.137 H* (0.00-0.029) ng/mL NT-Pro-B Natriuret Pep 27736 H (0-450) pg/mL Assessment and Plan - Patient Problems (1) Acute respiratory failure with hypoxia Current Visit: Yes Status: Acute Plan to address problem: Chest x-ray, supplemental oxygen, pulse oximetry, nebulizer therapy, noninvasive positive pressure ventilation as clinically indicated. (2) ESRD (end stage renal disease) Current Visit: Yes Status: Acute Plan to address problem: Nephrology team consulted in ED, dialysis as per renal team (3) Pneumonia Current Visit: Yes Status: Acute Plan to address problem: Pneumonia protocol: Chest x-ray, CBC, CMP, IV antibiotic therapy, supplemental oxygen, pulse oximetry, nebulizer therapy, blood culture. (4) HIV (human immunodeficiency virus infection) Current Visit: Yes Status: Acute Plan to address problem: Continue antiretroviral therapy, supportive care, outpatient infectious disease follow-up. (5) COVID-19 vaccination not done Current Visit: Yes Status: Acute Plan to address problem: Patient counseled. (6) DVT prophylaxis Current Visit: Yes Status: Acute Plan to address problem: SCD to bilateral lower extremities while in bed, prophylactic anticoagulation (7) Advance care planning Current Visit: Yes Status: Acute Plan to address problem: Disease education conducted, care plan discussed, diagnoses discussed, prognosis discussed, patient is full code, patient knowledges understanding and agreement with care plan, +30 minutes.
--- NOTE | 2021-05-22 13:35 | Consultation ---
History of Present Illness - Reason for Consult Consult date: 05/22/21 end stage renal disease Requesting physician: DANIELLE LAI - History of Present Illness Patient presents secondary to shortness of breath. He has a long history of renal disease secondary to HIV. He is on dialysis. He missed his dialysis treatment Sunday. He was dialyzed on . He believes that he is volume overloaded. This happened before. He states that he feels more short of breath when he lies down. He does describe to orthopnea. Patient has no chest pain. There is no vomiting or diarrhea. He has no fevers or chills. There is no significant cough. Patient seen in the emergency room. He is currently on a BiPAP mask 100% FiO2. Patient had received some sedation unable to get any additional history from him. Discussed with Dr. Lai . Patient undergoes outpatient dialysis under the care of Dr. Gomez. Past History Past Medical History: dialysis, HIV/AIDS, hypertension Past Surgical History: Other (History of PermCath placement) Social history: other (Unknown) Family history: other (Unknown) Medications and Allergies Allergies Allergy/AdvReac Type Severity Reaction Status Date / Time abacavir AdvReac Unknown Unknown Verified 05/22/21 10:25 Home Medications Medication Instructions Recorded Confirmed Last Taken Type Darunavir [Prezista] 800 mg PO DAILY 02/20/20 02/18/21 02/17/21 12:00 History Dolutegravir [Tivicay] 50 mg PO DAILY 02/20/20 02/18/21 02/17/21 12:00 History Ritonavir 100 mg PO DAILY 02/20/20 02/18/21 02/17/21 12:00 History amLODIPine 5 mg PO DAILY 02/20/20 02/18/21 02/17/21 12:00 History HYDROcodone/APAP 7.5-325 [[place] 1 each PO Q6HR PRN #30 tablet 02/18/21 Unknown Rx 7.5-325 mg TAB] Albuterol Sulfate [Proair 90 mcg IH 4XD #1 aer.pw.bas 04/26/21 Unknown Rx Digihaler] Benzonatate [Tessalon Perles] 100 mg PO Q8HR #20 capsule 04/26/21 Unknown Rx Prednisone [predniSONE 10 mg 10 mg PO .TAPER #1 tab.ds.pk 04/26/21 Unknown Rx (6-Day Pack, 21 Tabs)] Active Meds: Active Medications Nitroglycerin/Dextrose (Tridil Drip 50mg/250ml) 50 mg in 250 mls @ 3 mls/hr IV TITR AWA; Protocol Last Admin: 05/22/21 11:25 Dose: 10 mcg/min, 3 mls/hr Documented by: Review of Systems ROS unobtainable: due to mental status Exam - Vital Signs Vital signs: Vital Signs Temp Pulse Resp BP Pulse Ox 98.6 F 131 H 20 142/100 94 05/22/21 09:50 05/22/21 09:50 05/22/21 09:50 05/22/21 09:50 05/22/21 09:50 - General Appearance General appearance: chronically ill, frail, other (-[place] male) EENT: other (Patient is currently on a BiPAP mask) Neck: Present: neck supple, trachea midline, Other (Right IJ PermCath in place). Absent: JVD/HJR, Masses Respiratory: Other (Bilateral coarse breath sounds) Heart: regular, normal heart rate, S1S2, no murmurs Gastrointestinal: Present: normal, normoactive bowel sounds Integumentary: other (No peripheral edema) Results - Lab Results 05/22/21 10:24 05/22/21 10:24 Most recent lab results Calcium 8.8 mg/dL (8.4-10.2) 05/22/21 10:24 Assessment and Plan Impression * End-stage renal disease on maintenance hemodialysis * Respiratory failure * Hyperkalemia * Accelerated hypertension * HIV disease Recommendations * Patient is currently on a BiPAP mask requiring high FiO2 * Chest x-ray shows bilateral pulmonary infiltrates. Most likely secondary to volume overload and/or pneumonia * Patient is also hyperkalemic. Shall arrange for urgent hemodialysis treatment. * Spoke with on-call dialysis nurse * Ventilatory support as per primary team * Avoid nephrotoxins * Monitor fluid status and electrolytes closely * Adjust diet and meds for ESRD state * No indication for Epogen at this time * Thank you very much for the consultation. Shall follow along with you
[2021-05-22] MEDS ORDERED: ALBUTEROL 2.5 MG/3 ML NEBU IH PRN (13:40)
[2021-05-22] MEDS ORDERED: oxyCODONE /ACETAMINOPHEN 5-325MG TAB PO PRN (13:40)
[2021-05-22] MEDS ORDERED: ACETAMINOPHEN 325 MG TAB PO PRN (13:40)
[2021-05-22] MEDS ORDERED: ONDANSETRON 4 MG/2 ML INJ IV PRN (13:40)
[2021-05-22] MEDS ORDERED: HYDROmorphone 1 MG/1 ML INJ IV PRN (13:40)
[2021-05-22] MEDS ORDERED: BENZONATATE 100 MG CAP PO SCH (14:00)
[2021-05-22 15:08] LABS: Hepatitis C Virus Antibody Non-Reactive (NonReactive)
[2021-05-22 15:13] LABS: Hepatitis B Surface Antigen Nonreactive (Negative)
[2021-05-22 18:38] LABS: C-Reactive Protein 0.6 mg/dL (0.00-1.30)
[2021-05-22 19:06] VITALS: BP 152/112
[2021-05-22] MEDS ORDERED: methylPREDNISolone Sod Succinate 40 MG/1 ML INJ IV SCH (20:00)
[2021-05-22] MEDS ORDERED: ZINC SULFATE 220 MG CAP PO SCH (22:00)
[2021-05-22] MEDS ORDERED: ASCORBIC ACID 500 MG TAB PO SCH (22:00)
[2021-05-22] MEDS ORDERED: HEPARIN 5,000 UNIT/1 ML VIAL SUB-Q SCH (22:00)
[2021-05-23] MEDS ORDERED: RITONAVIR 100 MG TAB PO SCH (10:00)
[2021-05-23] MEDS ORDERED: CHOLECALCIFEROL (VIT D3) 1000 UNIT (25 mcg) TAB PO SCH (10:00)
[2021-05-23] MEDS ORDERED: DOLUTEGRAVIR 50 MG TAB PO SCH (10:00)
[2021-05-23] MEDS ORDERED: amLODIPine 5 MG TAB PO SCH (10:00)
[2021-05-23] MEDS ORDERED: DARUNAVIR 800 MG TAB PO SCH (10:00)
== END 2021-05-22 20:05 | disposition admitted as inpatient to this hospital (09) ==
LOC: ED 09:46 → UNDOADMIN 13:40 → IMCU 13:40 → ED 20:05
DX: J96.01 Acute respiratory failure with hypoxia (principal); I13.2 Hypertensive heart and chronic kidney disease with heart failure and with stage 5 chronic kidney disease, or end stage renal disease; N18.6 End stage renal disease; I50.9 Heart failure, unspecified; J18.9 Pneumonia, unspecified organism; Z99.2 Dependence on renal dialysis; I10 Essential (primary) hypertension; E87.6 Hypokalemia
CPT/HCPCS: 36415; 71045; 80048; 80061; 80074; 83615; 83880; 84145; 84484; 85027; 85379; 86140; 93005; 96365; 96366; 96367; 96372; 96375; 99291; G0257; J0780; J1940; J1956; J2060

== ENCOUNTER 2021-08-24 01:12 | Observation (INO) | payer MEDICARE ==
--- NOTE | 2021-08-24 03:12 | Emergency Department Report ---
ED General Adult HPI - General Chief complaint: Medical Clearance Stated complaint: medical Time Seen by Provider: 08/24/21 03:09 Source: EMS Mode of arrival: Stretcher Limitations: No Limitations - History of Present Illness Initial comments: Patient is a 36 years old male with history of end-stage renal disease on hemodialysis. Patient presented to the ER stating that he missed his dialysis yesterday because he did not have any transportation. Patient is currently complaining of shortness of breath. He denies any chest pain, weakness numbness or tingling sensation. Severity scale (0 -10): 2 - Related Data Home Medications Medication Instructions Recorded Confirmed Last Taken Darunavir [Prezista] 800 mg PO DAILY 02/20/20 02/18/21 02/17/21 12:00 Dolutegravir [Tivicay] 50 mg PO DAILY 02/20/20 02/18/21 02/17/21 12:00 Ritonavir 100 mg PO DAILY 02/20/20 02/18/21 02/17/21 12:00 amLODIPine 5 mg PO DAILY 02/20/20 02/18/21 02/17/21 12:00 Previous Rx's Medication Instructions Recorded Last Taken Type HYDROcodone/APAP 7.5-325 [[place] 1 each PO Q6HR PRN #30 tablet 02/18/21 Unknown Rx 7.5-325 mg TAB] Albuterol Sulfate [Proair 90 mcg IH 4XD #1 aer.pw.bas 04/26/21 Unknown Rx Digihaler] Benzonatate [Tessalon Perles] 100 mg PO Q8HR #20 capsule 04/26/21 Unknown Rx Prednisone [predniSONE 10 mg 10 mg PO .TAPER #1 tab.ds.pk 04/26/21 Unknown Rx (6-Day Pack, 21 Tabs)] Allergies Allergy/AdvReac Type Severity Reaction Status Date / Time abacavir AdvReac Unknown Unknown Verified 05/22/21 10:25 ED Review of Systems ROS: Stated complaint: medical Other details as noted in HPI Comment: All other systems reviewed and negative Constitutional: denies: chills, fever Respiratory: shortness of breath, SOB with exertion, SOB at rest. denies: cough, wheezing Cardiovascular: denies: chest pain, palpitations Gastrointestinal: denies: abdominal pain, nausea, vomiting Musculoskeletal: denies: back pain Neurological: denies: headache, weakness, numbness, paresthesias, confusion, abnormal gait ED Past Medical Hx - Past Medical History Hx Hypertension: Yes Hx Congestive Heart Failure: Yes Hx Diabetes: No Hx GERD: Yes Hx Renal Disease: Yes Hx Arthritis: ( HX TENNIS ELBOW) Hx Headaches / Migraines: Yes (MIGRAINES) Hx Seizures: Yes (X1) Hx Asthma: Yes Hx COPD: No Hx HIV: No Additional medical history: HIV, ESRD, Hemodialysis Tu, . Sat - Surgical History Additional Surgical History: fistula to left wrist. port to chest - Social History Smoking Status: Never Smoker - Medications Home Medications: Home Medications Medication Instructions Recorded Confirmed Last Taken Type Darunavir [Prezista] 800 mg PO DAILY 02/20/20 02/18/21 02/17/21 12:00 History Dolutegravir [Tivicay] 50 mg PO DAILY 02/20/20 02/18/21 02/17/21 12:00 History Ritonavir 100 mg PO DAILY 02/20/20 02/18/21 02/17/21 12:00 History amLODIPine 5 mg PO DAILY 02/20/20 02/18/21 02/17/21 12:00 History HYDROcodone/APAP 7.5-325 [[place] 1 each PO Q6HR PRN #30 tablet 02/18/21 Unknown Rx 7.5-325 mg TAB] Albuterol Sulfate [Proair 90 mcg IH 4XD #1 aer.pw.bas 04/26/21 Unknown Rx Digihaler] Benzonatate [Tessalon Perles] 100 mg PO Q8HR #20 capsule 04/26/21 Unknown Rx Prednisone [predniSONE 10 mg 10 mg PO .TAPER #1 tab.ds.pk 04/26/21 Unknown Rx (6-Day Pack, 21 Tabs)] ED Physical Exam - General Limitations: No Limitations General appearance: alert, in no apparent distress - Head Head exam: Present: atraumatic, normocephalic, normal inspection - Eye Eye exam: Present: normal appearance, PERRL - ENT ENT exam: Present: normal exam, normal orophraynx, mucous membranes moist - Neck Neck exam: Present: normal inspection, full ROM. Absent: tenderness, meningismus - Respiratory Respiratory exam: Present: normal lung sounds bilaterally - Cardiovascular Cardiovascular Exam: Present: regular rate, normal rhythm, normal heart sounds - GI/Abdominal GI/Abdominal exam: Present: soft, normal bowel sounds. Absent: distended, tend erness, guarding, rebound, rigid, organomegaly, mass, bruit, pulsatile mass, hernia - Extremities Exam Extremities exam: Present: normal inspection, full ROM, normal capillary refill. Absent: tenderness - Back Exam Back exam: Present: normal inspection, full ROM. Absent: CVA tenderness (R), CVA tenderness (L) - Neurological Exam Neurological exam: Present: alert, oriented X3, CN II-XII intact, normal gait, reflexes normal. Absent: motor sensory deficit - Psychiatric Psychiatric exam: Present: normal mood - Skin Skin exam: Present: warm, intact, normal color ED Course Vital Signs 08/24/21 01:23 Temperature 98.9 F Pulse Rate 88 Respiratory 18 Rate Blood Pressure 132/88 [Right] O2 Sat by Pulse 95 Oximetry ED Medical Decision Making - Lab Data Result diagrams: 08/24/21 03:37 08/24/21 03:37 - Radiology Data Radiology results: report reviewed - Medical Decision Making Patient is a 36 years old male with history of end-stage renal disease on hemodialysis. Patient presented to the ER stating that he missed his dialysis yesterday because he did not have any transportation. Patient is currently complaining of shortness of breath. He denies any chest pain, weakness numbness or tingling sensation. Chest x-ray showed pulmonary edema. Labs showed a potassium of 5.9. I discussed the patient with Dr. Monteiro, communication studies professor on-call for the patient he advised admit to the hospital for dialysis this morning. I discussed the patient with Dr. Charlton, He agreed to admit the patient to medical service for further management. Critical Care Time: Yes Critical care time in (mins) excluding proc time.: 35 Critical care attestation.: If time is entered above; I have spent that time in minutes in the direct care of this critically ill patient, excluding procedure time. ED Disposition Clinical Impression: End-stage renal disease needing dialysis, Hyperkalemia, Hypervolemia Disposition: 02 [facility] Is pt being admited?: Yes Condition: Stable
--- NOTE | 2021-08-24 03:35 | XRay Report ---
CHEST 2 VIEWS INDICATION / CLINICAL INFORMATION: Shortness of breath. COMPARISON: 05/22/21 FINDINGS: SUPPORT DEVICES: Right PermCath is unchanged. HEART / MEDIASTINUM: Heart is upper normal size and stable. LUNGS / PLEURA: Mild to moderate bilateral pulmonary opacities which may represent interstitial and a irspace pulmonary edema No pneumothorax. ADDITIONAL FINDINGS: No significant additional findings. IMPRESSION: 1. Bilateral pulmonary opacities which could represent pulmonary edema. Signer Name: Hailey Hernández MD Signed: 08/24/2021 3:31 AM Workstation Name: [id number]
[2021-08-24 04:12] LABS: Basophils # (Auto) 0.1 K/mm3 (0.0-0.1); Basophils % (Auto) 1.3 % (0.0-1.8); Eosinophils # (Auto) 0.6 K/mm3 (0.0-0.4); Eosinophils % (Auto) 6.1 % (0.0-4.3); Hematocrit 26.7 % (35.5-45.6); Hemoglobin 8.6 gm/dl (11.8-15.2); Lymphocytes # (Auto) 1.4 K/mm3 (1.2-5.4); Lymphocytes % (Auto) 13.4 % (13.4-35.0); Mean Corpuscular HGB Conc 32 % (32-34); Mean Corpuscular Volume 101 fl (84-94); Monocytes # (Auto) 0.9 K/mm3 (0.0-0.8); Monocytes % (Auto) 8.3 % (0.0-7.3); Platelet Count 369 K/mm3 (140-440); Red Blood Count 2.64 M/mm3 (3.65-5.03)
[2021-08-24 04:17] LABS: Red Cell Distribution Width 21.9 % (13.2-15.2)
[2021-08-24 04:29] LABS: Calcium 9.5 mg/dL (8.4-10.2)
[2021-08-24] MEDS ORDERED: SODIUM CHLORIDE 0.9% 100 ML IV PRN (05:57)
[2021-08-24] MEDS ORDERED: EPOETIN ALFA-EPBX 10,000 UNIT/1 ML VIAL IV PRN (05:58)
--- NOTE | 2021-08-24 07:30 | History and Physical Report ---
History of Present Illness Date of examination: 08/24/21 Date of admission: 08/24/21 Chief complaint: shortness of breath Medications and Allergies Allergies Allergy/AdvReac Type Severity Reaction Status Date / Time abacavir AdvReac Unknown Unknown Verified 05/22/21 10:25 Home Medications Medication Instructions Recorded Confirmed Last Taken Type Darunavir [Prezista] 800 mg PO DAILY 02/20/20 02/18/21 02/17/21 12:00 History Dolutegravir [Tivicay] 50 mg PO DAILY 02/20/20 02/18/21 02/17/21 12:00 History Ritonavir 100 mg PO DAILY 02/20/20 02/18/21 02/17/21 12:00 History amLODIPine 5 mg PO DAILY 02/20/20 02/18/21 02/17/21 12:00 History HYDROcodone/APAP 7.5-325 [[place] 1 each PO Q6HR PRN #30 tablet 02/18/21 Unknown Rx 7.5-325 mg TAB] Albuterol Sulfate [Proair 90 mcg IH 4XD #1 aer.pw.bas 04/26/21 Unknown Rx Digihaler] Benzonatate [Tessalon Perles] 100 mg PO Q8HR #20 capsule 04/26/21 Unknown Rx Prednisone [predniSONE 10 mg 10 mg PO .TAPER #1 tab.ds.pk 04/26/21 Unknown Rx (6-Day Pack, 21 Tabs)] Active Meds: Active Medications Acetaminophen (Acetaminophen 325 Mg Tab) 650 mg PO Q4H PRN PRN Reason: Pain MILD(1-3)/Fever >100.5/HIGHTOWER Sodium Chloride (Nacl 0.9%) 100 mls @ 999 mls/hr IV ALTHEA PRN PRN Reason: Hypotension Morphine Sulfate (Morphine 4 Mg/1 Ml Inj) 4 mg IV Q4H PRN PRN Reason: Pain , Severe (7-10) Ondansetron HCl (Ondansetron 4 Mg/2 Ml Inj) 4 mg IV Q8H PRN PRN Reason: Nausea And Vomiting Oxycodone/Acetaminophen (Oxycodone /Acetaminophen 5-325mg Tab) 1 tab PO Q6H PRN PRN Reason: Pain, Moderate (4-6) Sodium Chloride (Sodium Chloride 0.9% 10 Ml Flush Syringe) 10 ml IV BID AWA Sodium Chloride (Sodium Chloride 0.9% 10 Ml Flush Syringe) 10 ml IV PRN PRN PRN Reason: LINE FLUSH Exam - Constitutional Vitals: Temp Pulse Resp BP Pulse Ox 98.9 F 88 18 132/88 95 08/24/21 01:23 08/24/21 01:23 08/24/21 01:23 08/24/21 01:23 08/24/21 01:23 Results - Labs CBC & Chem 7: 08/24/21 03:37 08/24/21 03:37 Labs: Laboratory Last Values WBC 10.3 K/mm3 (4.5-11.0) 08/24/21 03:37 RBC 2.64 M/mm3 (3.65-5.03) L 08/24/21 03:37 Hgb 8.6 gm/dl (11.8-15.2) L 08/24/21 03:37 Hct 26.7 % (35.5-45.6) L 08/24/21 03:37 MCV 101 fl (84-94) H 08/24/21 03:37 MCH 33 pg (28-32) H 08/24/21 03:37 MCHC 32 % (32-34) 08/24/21 03:37 RDW 21.9 % (13.2-15.2) H 08/24/21 03:37 Plt Count 369 K/mm3 (140-440) 08/24/21 03:37 Lymph % (Auto) 13.4 % (13.4-35.0) 08/24/21 03:37 Dickson % (Auto) 8.3 % (0.0-7.3) H 08/24/21 03:37 Eos % (Auto) 6.1 % (0.0-4.3) H 08/24/21 03:37 Baso % (Auto) 1.3 % (0.0-1.8) 08/24/21 03:37 Lymph # (Auto) 1.4 K/mm3 (1.2-5.4) 08/24/21 03:37 Dickson # (Auto) 0.9 K/mm3 (0.0-0.8) H 08/24/21 03:37 Eos # (Auto) 0.6 K/mm3 (0.0-0.4) H 08/24/21 03:37 Baso # (Auto) 0.1 K/mm3 (0.0-0.1) 08/24/21 03:37 Seg Neutrophils % 70.9 % (40.0-70.0) H 08/24/21 03:37 Seg Neutrophils # 7.3 K/mm3 (1.8-7.7) 08/24/21 03:37 Sodium 141 mmol/L (137-145) 08/24/21 03:37 Potassium 5.9 mmol/L (3.6-5.0) H 08/24/21 03:37 Chloride 97.3 mmol/L (98-107) L 08/24/21 03:37 Carbon Dioxide 21 mmol/L (22-30) L 08/24/21 03:37 Anion Gap 29 mmol/L 08/24/21 03:37 BUN 56 mg/dL (9-20) H 08/24/21 03:37 Creatinine 14.6 mg/dL (0.8-1.3) H 08/24/21 03:37 Estimated GFR 5 ml/min 08/24/21 03:37 BUN/Creatinine Ratio 4 % 08/24/21 03:37 Glucose 87 mg/dL (75-100) 08/24/21 03:37 Calcium 9.5 mg/dL (8.4-10.2) 08/24/21 03:37 Assessment and Plan Assessment and plan: #ESRD requiring hemodialysis #noncompliance #Metabolic acidosis #Hyperkalemia #Macrocytic anemia -likely 2/2 to ESRD/chronic disease #HIV infection VTE prophylaxis?: Mechanical Plan of care discussed with patient/family: Yes
[2021-08-24] MEDS ORDERED: MORPHINE 4 MG/1 ML INJ IV PRN (08:00)
[2021-08-24] MEDS ORDERED: ONDANSETRON 4 MG/2 ML INJ IV PRN (08:00)
[2021-08-24] MEDS ORDERED: ACETAMINOPHEN 325 MG TAB PO PRN (08:00)
[2021-08-24] MEDS ORDERED: oxyCODONE /ACETAMINOPHEN 5-325MG TAB PO PRN (08:00)
[2021-08-24 14:18] LABS: Hepatitis B Surface Antigen Non-Reactive (Negative); Hepatitis C Virus Antibody Non-Reactive (NonReactive)
--- NOTE | 2021-08-24 16:11 | Discharge Summary ---
Providers - Providers Date of Admission: 08/24/21 07:25 Attending physician: MARLYN KRUGER MD Primary care physician: GISELA WHEELER MD Hospitalization Condition: Stable Exam - Constitutional Vitals: Temp Pulse Resp BP Pulse Ox 98.9 F 88 18 132/88 95 08/24/21 01:23 08/24/21 01:23 08/24/21 01:23 08/24/21 01:23 08/24/21 01:23 Plan Care Plan Goals: Please make sure to report to dialysis during your regularly scheduled time. Please try to call transportation to make sure that they know exactly where to pick you up from. Follow up with: GISELA WHEELER MD [Primary Care Provider] - 7 Days
--- NOTE | 2021-08-24 16:23 | Consultation ---
History of Present Illness - Reason for Consult Consult date: 08/24/21 end stage renal disease - History of Present Illness Mr. Remy is a 36yo with ESRD on HD TTS who presents to the ED with SOB. He reports that his last dialysis treatment was on Sunday. He states that he missed Sunday due to lack of transportation. In the ED, labs were notable for K 5.9 and CXR with pulmonary edema Hemodialysis orders entered. He is seen s/p dialysis treatment this AM. Presently, he denies SOB. Reports good appetite. States that he is ready to go home. Medications and Allergies Allergies Allergy/AdvReac Type Severity Reaction Status Date / Time abacavir AdvReac Unknown Unknown Verified 05/22/21 10:25 Home Medications Medication Instructions Recorded Confirmed Last Taken Type Darunavir [Prezista] 800 mg PO DAILY 02/20/20 02/18/21 02/17/21 12:00 History Dolutegravir [Tivicay] 50 mg PO DAILY 02/20/20 02/18/21 02/17/21 12:00 History Ritonavir 100 mg PO DAILY 02/20/20 02/18/21 02/17/21 12:00 History amLODIPine 5 mg PO DAILY 02/20/20 02/18/21 02/17/21 12:00 History HYDROcodone/APAP 7.5-325 [[place] 1 each PO Q6HR PRN #30 tablet 02/18/21 Unknown Rx 7.5-325 mg TAB] Albuterol Sulfate [Proair 90 mcg IH 4XD #1 aer.pw.bas 04/26/21 Unknown Rx Digihaler] Benzonatate [Tessalon Perles] 100 mg PO Q8HR #20 capsule 04/26/21 Unknown Rx Active Meds: Active Medications Acetaminophen (Acetaminophen 325 Mg Tab) 650 mg PO Q4H PRN PRN Reason: Pain MILD(1-3)/Fever >100.5/HIGHTOWER Sodium Chloride (Nacl 0.9%) 100 mls @ 999 mls/hr IV ATLHEA PRN PRN Reason: Hypotension Morphine Sulfate (Morphine 4 Mg/1 Ml Inj) 4 mg IV Q4H PRN PRN Reason: Pain , Severe (7-10) Ondansetron HCl (Ondansetron 4 Mg/2 Ml Inj) 4 mg IV Q8H PRN PRN Reason: Nausea And Vomiting Oxycodone/Acetaminophen (Oxycodone /Acetaminophen 5-325mg Tab) 1 tab PO Q6H PRN PRN Reason: Pain, Moderate (4-6) Sodium Chloride (Sodium Chloride 0.9% 10 Ml Flush Syringe) 10 ml IV BID AWA Sodium Chloride (Sodium Chloride 0.9% 10 Ml Flush Syringe) 10 ml IV PRN PRN PRN Reason: LINE FLUSH Review of Systems ROS unobtainable: due to endotracheal tube Exam - Vital Signs Vital signs: Vital Signs Temp Pulse Resp BP Pulse Ox 98.9 F 88 18 132/88 95 08/24/21 01:23 08/24/21 01:23 08/24/21 01:23 08/24/21 01:23 08/24/21 01:23 - General Appearance General appearance: well-developed, well-nourished EENT: ATNC, other (mask in place) Respiratory: Clear to Ascultation Heart: regular, S1S2 Gastrointestinal: Present: normal. Absent: tenderness, distended Integumentary: no rash, warm and dry Neurologic: alert and oriented x3 Musculoskeletal: Present: other (no edema) Psychiatric: cooperative Results - Lab Results 08/24/21 03:37 08/24/21 03:37 Most recent lab results Calcium 9.5 mg/dL (8.4-10.2) 08/24/21 03:37 Assessment and Plan Impression: * End stage renal disease * Pulmonary edema * Hyperkalemia * HIV Plan: * Patient is s/p HD following admission * Resume TTS schedule tomorrow. Patient reports that he has confirmed transportation to outpatient dialysis clinic tomorrow * Stable for discharge from a renal standpoint
[2021-08-25 00:30] VITALS: BP 164/88
== END 2021-08-24 17:05 | disposition home or self-care (01) ==
LOC: ED 01:12 → 3A 07:25
PROVIDERS: ADMIT Student in an Organized Health Care Education/Training Program; ATTEND Student in an Organized Health Care Education/Training Program
DX: E87.70 Fluid overload, unspecified (principal); E87.2 Acidosis; I12.0 Hypertensive chronic kidney disease with stage 5 chronic kidney disease or end stage renal disease; N18.6 End stage renal disease; E87.5 Hyperkalemia; D53.9 Nutritional anemia, unspecified; B20 Human immunodeficiency virus [HIV] disease; G43.909 Migraine, unspecified, not intractable, without status migrainosus; M19.90 Unspecified osteoarthritis, unspecified site; K21.9 Gastro-esophageal reflux disease without esophagitis; J81.1 Chronic pulmonary edema; J45.909 Unspecified asthma, uncomplicated; R56.9 Unspecified convulsions; Z99.2 Dependence on renal dialysis; Z91.19 Patient's noncompliance with other medical treatment and regimen; Z79.899 Other long term (current) drug therapy; Z98.890 Other specified postprocedural states
CPT/HCPCS: 36415; 71046; 80048; 80074; 85025; 99291; G0378; J2270; J2405

== ENCOUNTER 2021-11-17 05:54 | Inpatient (IN) | payer MEDICARE ==
[2021-11-17 10:10] LABS: Calcium 8.9 mg/dL (8.4-10.2)
[2021-11-17] MEDS ORDERED: INSULIN REGULAR, HUMAN 100 UNITS/1 ML IV ONE (10:58)
[2021-11-17] MEDS ORDERED: DEXTROSE 10% *Hypoglycemia IV PRN (10:58)
[2021-11-17] MEDS ORDERED: FUROSEMIDE 40 MG/4 ML INJ IV ONE (10:58)
[2021-11-17] MEDS ORDERED: ALBUTEROL 2.5 MG/3 ML NEBU IH ONE (10:58)
--- NOTE | 2021-11-17 11:00 | Emergency Department Report ---
ED General Adult HPI - General Chief complaint: Recheck/Abnormal Lab/Rx Stated complaint: DIALYSIS INFORMED PT POTASSIUM HIGH Time Seen by Provider: 11/17/21 10:52 Source: patient, RN notes reviewed, old records reviewed Mode of arrival: Ambulatory Limitations: No Limitations - History of Present Illness Initial comments: Nephrology: "I think it is Dr. [place]." The patient is a 36-year-old gentleman, who is referred to the emergency room by his dialysis center because of report of hyperkalemia. The patient denies physical pain. He reports that he typically gets dialysis Sunday, , Sunday. He reports he received dialysis on Sunday, 2 days ago. He denies physical pain. He denies complaints. He states he feels like he is at his ba [facility] at this time. -: This morning Severity scale (0 -10): 0 Consistency: constant Improves with: none Worsens with: none Associated Symptoms: denies other symptoms - Related Data Home Medications Medication Instructions Recorded Confirmed Last Taken Darunavir [Prezista] 800 mg PO DAILY 02/20/20 02/18/21 02/17/21 12:00 Dolutegravir [Tivicay] 50 mg PO DAILY 02/20/20 02/18/21 02/17/21 12:00 Ritonavir 100 mg PO DAILY 02/20/20 02/18/21 02/17/21 12:00 amLODIPine 5 mg PO DAILY 02/20/20 02/18/21 02/17/21 12:00 Albuterol Sulfate [Albuterol 0.63% 0.63 mg IH TID PRN 08/17/20 08/17/20 Unknown NEBS] Atovaquone [Mepron] 750 mg PO BID 08/17/20 08/17/20 Unknown Calcium Acetate [Phoslo] 2 cap PO TID 08/17/20 08/17/20 Unknown Darunavir [Prezista] 800 mg PO DAILY 08/17/20 08/18/20 Unknown Dolutegravir [Tivicay] 50 mg PO DAILY 08/17/20 08/18/20 Unknown Ferric Citrate (Nf) [Auryxia] 2 tab PO TID 08/17/20 08/17/20 Unknown HYDROcodone/ACETAMINOPHEN 1 each PO Q6HR PRN 08/17/20 08/17/20 Unknown [Hydrocodone-Acetamin 7.5-300] Lisinopril [Zestril TAB] 2.5 mg PO QDAY 08/17/20 08/17/20 Unknown Ritonavir 1 tab PO QDAY 08/17/20 08/17/20 Unknown Ritonavir [Norvir] 100 mg PO QDAY 08/17/20 08/17/20 Unknown Sodium Bicarbonate 1 tab PO TID 08/17/20 08/17/20 Unknown amLODIPine [Norvasc] 5 mg PO DAILY 08/17/20 08/17/20 Unknown Previous Rx's Medication Instructions Recorded Last Taken Type Apixaban [Eliquis starter pack] 5 mg PO BID #60 tab.ds.pk 08/20/20 Unknown Rx HYDROcodone/APAP 7.5-325 [[place] 1 each PO Q6HR PRN #30 tablet 02/18/21 Unknown Rx 7.5-325 mg TAB] Albuterol Sulfate [Proair 90 mcg IH 4XD #1 aer.pw.bas 04/26/21 Unknown Rx Digihaler] Benzonatate [Tessalon Perles] 100 mg PO Q8HR #20 capsule 04/26/21 Unknown Rx Allergies Allergy/AdvReac Type Severity Reaction Status Date / Time abacavir AdvReac Unknown Unknown Verified 10/26/21 12:06 ED Review of Systems ROS: Stated complaint: DIALYSIS INFORMED PT POTASSIUM HIGH Other details as noted in HPI Comment: All other systems reviewed and negative Cardiovascular: other (Tachycardia and heart racing) ED Past Medical Hx - Past Medical History Hx Hypertension: Yes Hx Congestive Heart Failure: Yes Hx Diabetes: No Hx GERD: Yes Hx Renal Disease: Yes Hx Arthritis: ( HX TENNIS ELBOW) Hx Headaches / Migraines: Yes (MIGRAINES) Hx Seizures: Yes (X1) Hx Asthma: Yes Hx COPD: No Hx HIV: Yes Additional medical history: HIV, ESRD, Hemodialysis , . Sat - Surgical History Additional Surgical History: fistula to left wrist. port to chest - Social History Smoking Status: Never Smoker Substance Use Type: None - Medications Home Medications: Home Medications Medication Instructions Recorded Confirmed Last Taken Type Darunavir [Prezista] 800 mg PO DAILY 02/20/20 02/18/21 02/17/21 12:00 History Dolutegravir [Tivicay] 50 mg PO DAILY 02/20/20 02/18/21 02/17/21 12:00 History Ritonavir 100 mg PO DAILY 02/20/20 02/18/21 02/17/21 12:00 History amLODIPine 5 mg PO DAILY 02/20/20 02/18/21 02/17/21 12:00 History Albuterol Sulfate [Albuterol 0.63% 0.63 mg IH TID PRN 08/17/20 08/17/20 Unknown History NEBS] Atovaquone [Mepron] 750 mg PO BID 08/17/20 08/17/20 Unknown History Calcium Acetate [Phoslo] 2 cap PO TID 08/17/20 08/17/20 Unknown History Darunavir [Prezista] 800 mg PO DAILY 08/17/20 08/18/20 Unknown History Dolutegravir [Tivicay] 50 mg PO DAILY 08/17/20 08/18/20 Unknown History Ferric Citrate (Nf) [Auryxia] 2 tab PO TID 08/17/20 08/17/20 Unknown History HYDROcodone/ACETAMINOPHEN 1 each PO Q6HR PRN 08/17/20 08/17/20 Unknown History [Hydrocodone-Acetamin 7.5-300] Lisinopril [Zestril TAB] 2.5 mg PO QDAY 08/17/20 08/17/20 Unknown History Ritonavir 1 tab PO QDAY 08/17/20 08/17/20 Unknown History Ritonavir [Norvir] 100 mg PO QDAY 08/17/20 08/17/20 Unknown History Sodium Bicarbonate 1 tab PO TID 08/17/20 08/17/20 Unknown History amLODIPine [Norvasc] 5 mg PO DAILY 08/17/20 08/17/20 Unknown History Apixaban [Eliquis starter pack] 5 mg PO BID #60 tab.ds.pk 08/20/20 Unknown Rx HYDROcodone/APAP 7.5-325 [[place] 1 each PO Q6HR PRN #30 tablet 02/18/21 Unknown Rx 7.5-325 mg TAB] Albuterol Sulfate [Proair 90 mcg IH 4XD #1 aer.pw.bas 04/26/21 Unknown Rx Digihaler] Benzonatate [Tessalon Perles] 100 mg PO Q8HR #20 capsule 04/26/21 Unknown Rx ED Physical Exam - General Limitations: No Limitations General appearance: alert, in no apparent distress - Head Head exam: Present: atraumatic, normocephalic - Eye Eye exam: Present: normal appearance, EOMI. Absent: nystagmus - ENT ENT exam: Present: normal exam, normal orophraynx, mucous membranes moist, nor mal external ear exam - Neck Neck exam: Present: normal inspection, full ROM. Absent: tenderness, meningismus - Respiratory Respiratory exam: Present: normal lung sounds bilaterally. Absent: respiratory distress, wheezes, rales, rhonchi, stridor, decreased breath sounds - Cardiovascular Cardiovascular Exam: Present: normal rhythm, tachycardia, normal heart sounds. Absent: bradycardia, irregular rhythm, systolic murmur, diastolic murmur, rubs, gallop - GI/Abdominal GI/Abdominal exam: Present: soft. Absent: distended, tenderness, guarding, rebound, rigid, pulsatile mass - Rectal Rectal exam: Present: deferred - Extremities Exam Extremities exam: Present: normal inspection, full ROM, pedal edema, other (2+ pulses noted in the bilateral upper and lower extremities. There is no palpable cord. negative Homans sign. Muscular compartments are soft. The pelvis is stable.). Absent: calf tenderness - Back Exam Back exam: Present: normal inspection, full ROM. Absent: tenderness, CVA tenderness (R), CVA tenderness (L), paraspinal tenderness, vertebral tenderness - Neurological Exam Neurological exam: Present: alert, oriented X3, normal gait, other (No facial droop. Tongue midline. Extraocular movements intact bilaterally. Facial sensation intact to light touch in V1, V2, V3 distribution bilaterally. 5 and a 5 strength in 4 extremities. Sensation intact to light touch in 4 extremities.). Absent: motor sensory deficit - Psychiatric Psychiatric exam: Present: normal affect, normal mood - Skin Skin exam: Present: warm, dry, intact, normal color. Absent: rash ED Course Vital Signs 11/17/21 11/17/21 11/17/21 06:25 06:27 10:56 Temperature 98.4 F Pulse Rate 124 H 125 H Respiratory 18 Rate Blood Pressure 137/106 Blood Pressure 137/106 [Left] O2 Sat by Pulse 98 97 95 Oximetry - Reevaluation(s) Reevaluation #1: 11/17/21 11:48 Differential diagnosis, including not limited to: Hyperkalemia, azotemia, uremia, metabolic acidosis, noncompliance Assessment and plan: 36-year-old gentleman, presenting with hyperkalemia, and no other symptoms. Requires hemodialysis. Contacted nephrology, Dr. Montana, who is very familiar with this patient and has cared for this patient in the past. Discussed the patient's history, physical, and laboratory studies. He will follow in consultation, and we will initiate hyperkalemia cocktail. Patient is agreeable to admission and hospitalization. Hospital physician is paged. Defer to inpatient team to further evaluate and work-up asymptomatic tachycardia. The patient denies chest pain or shortness of breath to myself. Reevaluation #2: 11/17/21 11:49 Patient has a right-sided thoracic hemodialysis access catheter, without redness, pus, streaking or tenderness 11/17/21 11:52 Dr. Hebert to admit patient to the medical service. ED Medical Decision Making - Lab Data Result diagrams: 11/17/21 10:55 11/17/21 09:37 Vital Signs 11/17/21 11/17/21 11/17/21 06:25 06:27 10:56 Temperature 98.4 F Pulse Rate 124 H 125 H Respiratory 18 Rate Blood Pressure 137/106 Blood Pressure 137/106 [Left] O2 Sat by Pulse 98 97 95 Oximetry Lab Results 11/17/21 11/17/21 Range/Units 09:37 10:55 WBC 4.7 (4.5-11.0) K/mm3 RBC 4.22 (3.65-5.03) M/mm3 Hgb 12.1 (11.8-15.2) gm/dl Hct 38.2 (35.5-45.6) % MCV 91 (84-94) fl MCH 29 (28-32) pg MCHC 32 (32-34) % RDW 20.4 H (13.2-15.2) % Plt Count 132 L (140-440) K/mm3 Sodium 136 L (137-145) mmol/L Potassium 6.8 H* (3.6-5.0) mmol/L Chloride 94.4 L (98-107) mmol/L Carbon Dioxide 22 (22-30) mmol/L Anion Gap 26 mmol/L BUN 55 H (9-20) mg/dL Creatinine 9.5 H (0.8-1.3) mg/dL Estimated GFR 8 ml/min BUN/Creatinine Ratio 6 % Glucose 92 (75-100) mg/dL Calcium 8.9 (8.4-10.2) mg/dL Total Bilirubin 0.40 (0.1-1.2) mg/dL AST 41 H (5-40) units/L ALT 27 (7-56) units/L Alkaline Phosphatase 106 (35-129) units/L Total Protein 7.2 (6.3-8.2) g/dL Albumin 3.0 L (3.9-5) g/dL Albumin/Globulin Ratio 0.7 % - EKG Data 11/17/21 11:47 The EKG is interpreted at 11: 47 Sinus rhythm, tachycardia, rate 118 bpm. Left axis deviation, left ventricular hypertrophy, QTC 409 ms, abnormal EKG, and motion artifact. This is not a [facility]. Critical Care Time: Yes Critical care time in (mins) excluding proc time.: 35 Critical care attestation.: If time is entered above; I have spent that time in minutes in the direct care of this critically ill patient, excluding procedure time. ED Disposition Clinical Impression: Hyperkalemia, End-stage renal disease needing dialysis Disposition: 09 ADMITTED INPATIENT Is pt being admited?: Yes Does the pt Need Aspirin: No Condition: Stable Referrals: PRIMARY CARE, [Primary Care Provider] - 3-5 Days
[2021-11-17 11:15] LABS: Hematocrit 38.2 % (35.5-45.6); Hemoglobin 12.1 gm/dl (11.8-15.2); Mean Corpuscular HGB Conc 32 % (32-34); Mean Corpuscular Volume 91 fl (84-94); Platelet Count 132 K/mm3 (140-440); Red Blood Count 4.22 M/mm3 (3.65-5.03)
[2021-11-17 11:29] LABS: Red Cell Distribution Width 20.4 % (13.2-15.2)
[2021-11-17] MEDS ORDERED: SODIUM POLYSTYRENE 15 GM/60 ML ORAL LIQD PO ONE (11:39)
--- NOTE | 2021-11-17 11:57 | History and Physical Report ---
History of Present Illness Chief complaint: I could not get dialysis done today History of present illness: 36 YO Male with HIV Disease on Anitretroviral Therapy, ESRD on HD (T,R,Sa) last dialyzed on Sunday, HTN, Right Atrial Thrombus on Therapeutic anticoagulation with Eliquis, Noncompliance presents to ED for evaluation. Patient reports "I could not get dialysis". Patient states that he presented to his routine outpatient dialysis center for dialysis but was unable to undergo dialysis today due to hyperkalemia. Patient was instructed to seek further care at [facility]. Patient transported to [facility] via private vehicle for further care and evaluation of the aforementioned symptoms. The patient was seen and evaluated in the emergency department. All lab and imaging studies reviewed. Patient to have end-stage renal disease in need of urgent dialysis, fluid overload, hyponatremia, and hyperkalemia. Patient admitted to medical floor due to increased risk of worsening symptoms. Nephrology team consulted in ED for urgent dialysis. Patient denies fever, chills, chest pain, palpitation, productive cough, skin rash, recent contact, known exposure to COVID-19. Advanced care planning conducted in ED. Past History Past Medical History: ESRD, HIV/AIDS, hypertension, other (See HPI) Past Surgical History: Other (Dialysis access) Social history: single. denies: smoking, alcohol abuse, prescription drug abuse Family history: hypertension Medications and Allergies Allergies Allergy/AdvReac Type Severity Reaction Status Date / Time abacavir AdvReac Unknown Unknown Verified 10/26/21 12:06 Home Medications Medication Instructions Recorded Confirmed Last Taken Type Darunavir [Prezista] 800 mg PO DAILY 02/20/20 02/18/21 02/17/21 12:00 History Dolutegravir [Tivicay] 50 mg PO DAILY 02/20/20 02/18/21 02/17/21 12:00 History Ritonavir 100 mg PO DAILY 02/20/20 02/18/21 02/17/21 12:00 History amLODIPine 5 mg PO DAILY 02/20/20 02/18/21 02/17/21 12:00 History Albuterol Sulfate [Albuterol 0.63% 0.63 mg IH TID PRN 08/17/20 08/17/20 Unknown History NEBS] Atovaquone [Mepron] 750 mg PO BID 08/17/20 08/17/20 Unknown History Calcium Acetate [Phoslo] 2 cap PO TID 08/17/20 08/17/20 Unknown History Darunavir [Prezista] 800 mg PO DAILY 08/17/20 08/18/20 Unknown History Dolutegravir [Tivicay] 50 mg PO DAILY 08/17/20 08/18/20 Unknown History Ferric Citrate (Nf) [Auryxia] 2 tab PO TID 08/17/20 08/17/20 Unknown History HYDROcodone/ACETAMINOPHEN 1 each PO Q6HR PRN 08/17/20 08/17/20 Unknown History [Hydrocodone-Acetamin 7.5-300] Lisinopril [Zestril TAB] 2.5 mg PO QDAY 08/17/20 08/17/20 Unknown History Ritonavir 1 tab PO QDAY 08/17/20 08/17/20 Unknown History Ritonavir [Norvir] 100 mg PO QDAY 08/17/20 08/17/20 Unknown History Sodium Bicarbonate 1 tab PO TID 08/17/20 08/17/20 Unknown History amLODIPine [Norvasc] 5 mg PO DAILY 08/17/20 08/17/20 Unknown History Apixaban [Eliquis starter pack] 5 mg PO BID #60 tab.ds.pk 08/20/20 Unknown Rx HYDROcodone/APAP 7.5-325 [[place] 1 each PO Q6HR PRN #30 tablet 02/18/21 Unknown Rx 7.5-325 mg TAB] Albuterol Sulfate [Proair 90 mcg IH 4XD #1 aer.pw.bas 04/26/21 Unknown Rx Digihaler] Benzonatate [Tessalon Perles] 100 mg PO Q8HR #20 capsule 04/26/21 Unknown Rx Active Meds: Active Medications Dextrose (Dextrose 10% *Hypoglycemia) 75 ml IV PRN PRN PRN Reason: Hypoglycemia Dextrose (Dextrose 50% In Water (25gm) 50 Ml Vial) 50 gm IV ONCE ONE; Protocol Stop: 11/17/21 12:01 Calcium Gluconate 1,000 mg/ (Sodium Chloride) 110 mls @ 660 mls/hr IV ONCE ONE Stop: 11/17/21 12:09 Review of Systems Constitutional: no weight loss, no weight gain, no fever, no chills Ears, nose, mouth and throat: no ear pain, no tinnitis, no nose pain Cardiovascular: no chest pain, no orthopnea, no edema, no syncope Respiratory: no cough, no cough with sputum, no excessive sputum, no hemoptysis, no shortness of breath Gastrointestinal: no abdominal pain, no vomiting, no diarrhea, no change in bowel habits Genitourinary Male: no hematuria, no flank pain, no discharge, no urinary frequency Rectal: no pain, no incontinence Musculoskeletal: no shooting arm pain, no leg numbness/tingling Integumentary: no rash, no pruritis, no sores, no wounds, no jaundice Neurological: no head injury, no weakness, no tingling Psychiatric: no anxiety, no change in sleep habits, no insomnia, no change in appetite, no suicidal ideation, no disorientation Endocrine: no cold intolerance, no polyuria, no nocturia, no excessive sweating Hematologic/Lymphatic: no easy bruising, no easy bleeding Allergic/Immunologic: no urticaria, no allergic rhinitis, no wheezing Exam - Constitutional Vitals: Temp Pulse Resp BP Pulse Ox 98.4 F 125 H 18 137/106 95 11/17/21 06:27 11/17/21 06:27 11/17/21 06:27 11/17/21 06:27 11/17/21 10:56 General appearance: Present: mild distress - EENT Eyes: Present: PERRL ENT: hearing intact, clear oral mucosa - Neck Neck: Present: supple, normal ROM - Respiratory Respiratory effort: normal Respiratory: bilateral: CTA - Cardiovascular Heart Sounds: Present: S1 & S2. Absent: rub, click - Extremities Extremities: pulses symmetrical, No edema Peripheral Pulses: within normal limits - Abdominal General gastrointestinal: Present: soft, non-tender, non-distended, normal bowel sounds Male genitourinary: Present: normal - Integumentary Integumentary: Present: clear, warm, dry - Musculoskeletal Musculoskeletal: gait normal, strength equal bilaterally - Psychiatric Psychiatric: appropriate mood/affect, intact judgment & insight - Neurologic Neurologic: CNII-XII intact, moves all extremities Results - Labs CBC & Chem 7: 11/17/21 10:55 11/17/21 09:37 Labs: Abnormal lab results 11/17/21 11/17/21 Range/Units 09:37 10:55 RDW 20.4 H (13.2-15.2) % Plt Count 132 L (140-440) K/mm3 Sodium 136 L (137-145) mmol/L Potassium 6.8 H* (3.6-5.0) mmol/L Chloride 94.4 L (98-107) mmol/L BUN 55 H (9-20) mg/dL Creatinine 9.5 H (0.8-1.3) mg/dL AST 41 H (5-40) units/L Albumin 3.0 L (3.9-5) g/dL Assessment and Plan - Patient Problems (1) End-stage renal disease needing dialysis Current Visit: Yes Status: Chronic Plan to address problem: Strict I/O, monitor urine output every shift, monitor fluid balance, nephrology team consulted in ED, avoid nephrotoxic agents. Dialysis as per renal team (2) Fluid overload Current Visit: Yes Status: Acute Qualifiers: Hypervolemia type: unspecified Qualified Code(s): E87.70 - Fluid overload, unspecified Plan to address problem: Supportive care, urgent dialysis. (3) HIV (human immunodeficiency virus infection) Current Visit: No Status: Chronic Qualifiers: HIV symptom status: currently asymptomatic, with history of HIV-related illness Qualified Code(s): B20 - Human immunodeficiency virus [HIV] disease Plan to address problem: Continue current therapy, outpatient infectious disease service follow-up. (4) Right atrial mass Current Visit: No Status: Chronic Plan to address problem: Continue therapeutic anticoagulation, supportive care. (5) DVT prophylaxis Current Visit: No Status: Acute Plan to address problem: SCD to bilateral lower extremities while in bed, continue therapeutic anticoagulation. (6) Advance care planning Current Visit: No Status: Acute Plan to address problem: Disease education done, care plan discussed, diagnoses discussed, prognosis discussed, patient is full code. Patient knowledges understanding agreement with care plan, +30 minutes.
[2021-11-17] MEDS ORDERED: HYDROmorphone 1 MG/1 ML INJ IV PRN (11:59)
[2021-11-17] MEDS ORDERED: ALBUTEROL 2.5 MG/3 ML NEBU IH PRN (11:59)
[2021-11-17] MEDS ORDERED: oxyCODONE /ACETAMINOPHEN 5-325MG TAB PO PRN (11:59)
[2021-11-17] MEDS ORDERED: ONDANSETRON 4 MG/2 ML INJ IV PRN (11:59)
[2021-11-17] MEDS ORDERED: ACETAMINOPHEN 325 MG TAB PO PRN (11:59)
[2021-11-17] MEDS ORDERED: CALCIUM GLUCONATE 1,000 MG in SODIUM CHLORIDE 0.9% 100 ML IV ONE (12:00)
[2021-11-17] MEDS ORDERED: DEXTROSE 50% IN WATER (25GM) 50 ML VIAL IV ONE (12:00)
[2021-11-17] MEDS ORDERED: SODIUM CHLORIDE 0.9% 100 ML IV PRN (12:20)
[2021-11-17] MEDS ORDERED: HEPARIN 10,000 UNITS/10 ML VIAL IV PRN (12:20)
[2021-11-17 13:48] LABS: Hepatitis B Surface Antigen Non-Reactive (Negative); Hepatitis C Virus Antibody Non-Reactive (NonReactive)
--- NOTE | 2021-11-17 20:39 | Electrocardiograph Report ---
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
[2021-11-17 21:00] VITALS: BP 136/98
--- NOTE | 2021-11-18 08:21 | Consultation ---
History of Present Illness - Reason for Consult Consult date: 11/14/21 end stage renal disease Past History Past Medical History: ESRD, HIV/AIDS, hypertension, other (See HPI) Past Surgical History: Other (Dialysis access) Social history: single. denies: smoking, alcohol abuse, prescription drug abuse Family history: hypertension Medications and Allergies Allergies Allergy/AdvReac Type Severity Reaction Status Date / Time abacavir AdvReac Unknown Unknown Verified 10/26/21 12:06 Home Medications Medication Instructions Recorded Confirmed Last Taken Type Darunavir [Prezista] 800 mg PO DAILY 02/20/20 02/18/21 02/17/21 12:00 History Dolutegravir [Tivicay] 50 mg PO DAILY 02/20/20 02/18/21 02/17/21 12:00 History Ritonavir 100 mg PO DAILY 02/20/20 02/18/21 02/17/21 12:00 History amLODIPine 5 mg PO DAILY 02/20/20 02/18/21 02/17/21 12:00 History Albuterol Sulfate [Albuterol 0.63% 0.63 mg IH TID PRN 08/17/20 08/17/20 Unknown History NEBS] Atovaquone [Mepron] 750 mg PO BID 08/17/20 08/17/20 Unknown History Calcium Acetate [Phoslo] 2 cap PO TID 08/17/20 08/17/20 Unknown History Darunavir [Prezista] 800 mg PO DAILY 08/17/20 08/18/20 Unknown History Dolutegravir [Tivicay] 50 mg PO DAILY 08/17/20 08/18/20 Unknown History Ferric Citrate (Nf) [Auryxia] 2 tab PO TID 08/17/20 08/17/20 Unknown History HYDROcodone/ACETAMINOPHEN 1 each PO Q6HR PRN 08/17/20 08/17/20 Unknown History [Hydrocodone-Acetamin 7.5-300] Lisinopril [Zestril TAB] 2.5 mg PO QDAY 08/17/20 08/17/20 Unknown History Ritonavir 1 tab PO QDAY 08/17/20 08/17/20 Unknown History Ritonavir [Norvir] 100 mg PO QDAY 08/17/20 08/17/20 Unknown History Sodium Bicarbonate 1 tab PO TID 08/17/20 08/17/20 Unknown History amLODIPine [Norvasc] 5 mg PO DAILY 08/17/20 08/17/20 Unknown History Apixaban [Eliquis starter pack] 5 mg PO BID #60 tab.ds.pk 08/20/20 Unknown Rx HYDROcodone/APAP 7.5-325 [[place] 1 each PO Q6HR PRN #30 tablet 02/18/21 Unknown Rx 7.5-325 mg TAB] Albuterol Sulfate [Proair 90 mcg IH 4XD #1 aer.pw.bas 04/26/21 Unknown Rx Digihaler] Benzonatate [Tessalon Perles] 100 mg PO Q8HR #20 capsule 04/26/21 Unknown Rx Exam - Vital Signs Vital signs: Vital Signs Pulse BP Pulse Ox 124 H 137/106 98 11/17/21 06:25 11/17/21 06:25 11/17/21 06:25 Results - Lab Results 11/17/21 10:55 11/17/21 09:37 Most recent lab results Calcium 8.9 mg/dL (8.4-10.2) 11/17/21 09:37 Phosphorus 8.80 mg/dL (2.5-4.5) H 11/17/21 10:55 Magnesium 2.20 mg/dL (1.7-2.3) 11/17/21 10:55
== END 2021-11-17 18:00 | disposition left against medical advice (07) | DRG 640 ==
LOC: ED 05:54 → 3A 11:59
PROVIDERS: ADMIT Internal Medicine; ATTEND Internal Medicine
PROC: 5A1D70Z Performance of Urinary Filtration, Intermittent, Less than 6 Hours Per Day (ICD-10-PCS; principal; 2021-11-17)
DX: E87.5 Hyperkalemia (principal); N18.6 End stage renal disease; I13.2 Hypertensive heart and chronic kidney disease with heart failure and with stage 5 chronic kidney disease, or end stage renal disease; B20 Human immunodeficiency virus [HIV] disease; E87.1 Hypo-osmolality and hyponatremia; K21.9 Gastro-esophageal reflux disease without esophagitis; Z20.822 Contact with and (suspected) exposure to COVID-19; G43.909 Migraine, unspecified, not intractable, without status migrainosus; I50.9 Heart failure, unspecified; Z88.8 Allergy status to other drugs, medicaments and biological substances; Z82.49 Family history of ischemic heart disease and other diseases of the circulatory system
CPT/HCPCS: 36415; 80053; 80074; 82962; 83735; 83880; 84100; 85027; 93005; 94644; G0378; J3490; J0610; J1940

== ENCOUNTER 2021-11-24 07:29 | Emergency (ER) | payer MEDICARE ==
--- NOTE | 2021-11-24 08:17 | Emergency Department Report ---
ED Palpitations HPI - General Chief Complaint: High BP Stated Complaint: TACHYCARDIA Time Seen by Provider: 11/24/21 08:02 Source: patient, EMS Mode of arrival: Stretcher Limitations: No Limitations - History of Present Illness Initial Comments: 36-year-old male with a past medical history of HIV currently on antiretrovirals with unknown CD4 count, end-stage renal disease on dialysis Sunday, , and Sunday, asthma, and seizures sent to the ER from dialysis center with complaint of tachycardia. Dialysis not performed due to elevation in heart rate and blood pressure. Patient received clonidine 0.1 mg prior to ED transport. Patient denies symptoms and states he feels great. He denies headache, chest pain, shortness of breath, palpitations, nausea, vomiting, fever, abdominal pain, calf tenderness, or leg edema. He denies history of PE/DVT. As per medical record review patient appears to have chronic tachycardia and very rarely has a heart rate less than 100 as per [employer] record. Patient states he took his blood pressure medications this morning. As per MAR below patient does not take a beta-sandra. Patient states that his heart rate was elevated with his dialysis session on Sunday/2 days ago but improved during session. Patient does urinate 2-3 times a day As per dialysis MAR medications include Albuterol as needed Amlodipine 5 mg daily Tessalon Perles 100 mg 3 times daily as needed cough Guaifenesin as needed cough Lidoderm patch 5% every 24 hours Lokelma 5g Prezista 800 mg daily Renvela 800 mg 2 tablets 3 times daily Ritonavir 100mg daily sodium bicarb 650mg tid Tivicay 50mg QD Triamcinolone acetonide 0.1% bid Vit D2 1250 mcg [facility] - Related Data Home Medications Medication Instructions Recorded Confirmed Last Taken Darunavir [Prezista] 800 mg PO DAILY 02/20/20 02/18/21 02/17/21 12:00 Dolutegravir [Tivicay] 50 mg PO DAILY 02/20/20 02/18/21 02/17/21 12:00 Ritonavir 100 mg PO DAILY 02/20/20 02/18/21 02/17/21 12:00 amLODIPine 5 mg PO DAILY 02/20/20 02/18/21 02/17/21 12:00 Albuterol Sulfate [Albuterol 0.63% 0.63 mg IH TID PRN 08/17/20 08/17/20 Unknown NEBS] Atovaquone [Mepron] 750 mg PO BID 08/17/20 08/17/20 Unknown Calcium Acetate [Phoslo] 2 cap PO TID 08/17/20 08/17/20 Unknown Darunavir [Prezista] 800 mg PO DAILY 08/17/20 08/18/20 Unknown Dolutegravir [Tivicay] 50 mg PO DAILY 08/17/20 08/18/20 Unknown Ferric Citrate (Nf) [Auryxia] 2 tab PO TID 08/17/20 08/17/20 Unknown HYDROcodone/ACETAMINOPHEN 1 each PO Q6HR PRN 08/17/20 08/17/20 Unknown [Hydrocodone-Acetamin 7.5-300] Lisinopril [Zestril TAB] 2.5 mg PO QDAY 08/17/20 08/17/20 Unknown Ritonavir 1 tab PO QDAY 08/17/20 08/17/20 Unknown Ritonavir [Norvir] 100 mg PO QDAY 08/17/20 08/17/20 Unknown Sodium Bicarbonate 1 tab PO TID 08/17/20 08/17/20 Unknown amLODIPine [Norvasc] 5 mg PO DAILY 08/17/20 08/17/20 Unknown Previous Rx's Medication Instructions Recorded Last Taken Type Apixaban [Eliquis starter pack] 5 mg PO BID #60 tab.ds.pk 08/20/20 Unknown Rx HYDROcodone/APAP 7.5-325 [Sorrento 1 each PO Q6HR PRN #30 tablet 02/18/21 Unknown Rx 7.5-325 mg TAB] Albuterol Sulfate [Proair 90 mcg IH 4XD #1 aer.pw.bas 04/26/21 Unknown Rx Digihaler] Benzonatate [Tessalon Perles] 100 mg PO Q8HR #20 capsule 04/26/21 Unknown Rx Allergies Allergy/AdvReac Type Severity Reaction Status Date / Time abacavir AdvReac Unknown Unknown Verified 10/26/21 12:06 ED Review of Systems ROS: Stated complaint: TACHYCARDIA Other details as noted in HPI Comment: All other systems reviewed and negative ED Past Medical Hx - Past Medical History Hx Hypertension: Yes Hx Congestive Heart Failure: Yes Hx Diabetes: No Hx GERD: Yes Hx Renal Disease: Yes Hx Arthritis: ( HX TENNIS ELBOW) Hx Headaches / Migraines: Yes (MIGRAINES) Hx Seizures: Yes (X1) Hx Asthma: Yes Hx COPD: No Hx HIV: Yes Additional medical history: HIV, ESRD, Hemodialysis , . Sat - Surgical History Additional Surgical History: fistula to left wrist. port to chest - Social History Smoking Status: Never Smoker Substance Use Type: None - Medications Home Medications: Home Medications Medication Instructions Recorded Confirmed Last Taken Type Darunavir [Prezista] 800 mg PO DAILY 02/20/20 02/18/21 02/17/21 12:00 History Dolutegravir [Tivicay] 50 mg PO DAILY 02/20/20 02/18/21 02/17/21 12:00 History Ritonavir 100 mg PO DAILY 02/20/20 02/18/21 02/17/21 12:00 History amLODIPine 5 mg PO DAILY 02/20/20 02/18/21 02/17/21 12:00 History Albuterol Sulfate [Albuterol 0.63% 0.63 mg IH TID PRN 08/17/20 08/17/20 Unknown History NEBS] Atovaquone [Mepron] 750 mg PO BID 08/17/20 08/17/20 Unknown History Calcium Acetate [Phoslo] 2 cap PO TID 08/17/20 08/17/20 Unknown History Darunavir [Prezista] 800 mg PO DAILY 08/17/20 08/18/20 Unknown History Dolutegravir [Tivicay] 50 mg PO DAILY 08/17/20 08/18/20 Unknown History Ferric Citrate (Nf) [Auryxia] 2 tab PO TID 08/17/20 08/17/20 Unknown History HYDROcodone/ACETAMINOPHEN 1 each PO Q6HR PRN 08/17/20 08/17/20 Unknown History [Hydrocodone-Acetamin 7.5-300] Lisinopril [Zestril TAB] 2.5 mg PO QDAY 08/17/20 08/17/20 Unknown History Ritonavir 1 tab PO QDAY 08/17/20 08/17/20 Unknown History Ritonavir [Norvir] 100 mg PO QDAY 08/17/20 08/17/20 Unknown History Sodium Bicarbonate 1 tab PO TID 08/17/20 08/17/20 Unknown History amLODIPine [Norvasc] 5 mg PO DAILY 08/17/20 08/17/20 Unknown History Apixaban [Eliquis starter pack] 5 mg PO BID #60 tab.ds.pk 08/20/20 Unknown Rx HYDROcodone/APAP 7.5-325 [Sorrento 1 each PO Q6HR PRN #30 tablet 02/18/21 Unknown Rx 7.5-325 mg TAB] Albuterol Sulfate [Proair 90 mcg IH 4XD #1 aer.pw.bas 04/26/21 Unknown Rx Digihaler] Benzonatate [Tessalon Perles] 100 mg PO Q8HR #20 capsule 04/26/21 Unknown Rx ED Physical Exam - General Limitations: No Limitations - Other Other exam information: General: No acute distress Head: Atraumatic Eyes: normal appearance ENT: Moist mucous membranes Neck: Normal appearance, no midline tenderness Chest: Clear to auscultation bilaterally. Dialysis catheter to right chest wall CV: Tachycardic regular rhythm Abdomen: Soft, normal bowel sounds, nontender, nondistended, no rebound or guarding Back: Normal inspection Extremity: Normal inspection, full range of motion, no calf tenderness or leg edema Neuro: Alert O x 3, no facial asymmetry, speech clear, no gross motor sensory deficit Psych: Appropriate behavior Skin: No rash ED Course Vital Signs 11/24/21 11/24/21 11/24/21 07:34 07:58 08:01 Temperature 98.2 F Pulse Rate 124 H Respiratory 20 16 Rate Blood Pressure 155/116 Blood Pressure 160/120 [Left] O2 Sat by Pulse 99 99 100 Oximetry 11/24/21 11/24/21 11/24/21 08:13 08:14 08:15 Temperature Pulse Rate 118 H 119 H Respiratory 16 12 Rate Blood Pressure 156/111 Blood Pressure 155/116 [Left] O2 Sat by Pulse 99 99 100 Oximetry 11/24/21 11/24/21 11/24/21 08:31 08:45 09:01 Temperature Pulse Rate 121 H 117 H 121 H Respiratory 22 17 12 Rate Blood Pressure 148/109 148/109 156/114 Blood Pressure [Left] O2 Sat by Pulse 97 99 99 Oximetry 11/24/21 11/24/21 11/24/21 09:15 09:31 09:45 Temperature Pulse Rate 120 H 120 H 122 H Respiratory 10 L 15 15 Rate Blood Pressure 156/114 153/112 153/112 Blood Pressure [Left] O2 Sat by Pulse 99 98 98 Oximetry 11/24/21 11/24/21 11/24/21 10:01 10:15 10:31 Temperature Pulse Rate 121 H 118 H 123 H Respiratory 17 17 13 Rate Blood Pressure 143/107 143/107 149/113 Blood Pressure [Left] O2 Sat by Pulse 99 100 99 Oximetry 11/24/21 11/24/21 11/24/21 10:45 11:01 11:15 Temperature Pulse Rate 122 H 121 H 118 H Respiratory 14 15 14 Rate Blood Pressure 149/113 141/106 141/106 Blood Pressure [Left] O2 Sat by Pulse 99 99 99 Oximetry 11/24/21 11/24/21 11/24/21 11:31 11:45 12:01 Temperature Pulse Rate 114 H 119 H 120 H Respiratory 16 12 17 Rate Blood Pressure 141/107 141/107 143/109 Blood Pressure [Left] O2 Sat by Pulse 100 96 98 Oximetry 11/24/21 11/24/21 11/24/21 12:15 12:18 12:31 Temperature Pulse Rate 117 H 118 H 120 H Respiratory 13 18 Rate Blood Pressure 143/109 149/118 139/107 Blood Pressure [Left] O2 Sat by Pulse 99 98 Oximetry 11/24/21 11/24/21 12:45 13:01 Temperature Pulse Rate 117 H 106 H Respiratory 28 H 25 H Rate Blood Pressure 139/107 138/106 Blood Pressure [Left] O2 Sat by Pulse 99 98 Oximetry - Reevaluation(s) Reevaluation #1: 11/24/21 13:12 Heart rate improving and BP improving after metoprolol 50. As of note patient also received clonidine 0.1 mg prior to arrival which also improves heart rate and BP. Will be discharged on metoprolol 100 mg twice daily as recommended by the underwriting technician - Consultations Consultation #1: 11/24/21 11:[address] Junior underwriting technician. EKG reviewed and agrees with sinus tach reading. recommends initiation of metoprolol 50 mg here then to go home on 100 mg twice daily 11/24/21 Case was discussed with sfdc developer at the [facility] who agrees patient does not meet criteria for emergent dialysis 11/24/21 13:16 ED Medical Decision Making - Lab Data Result diagrams: 11/24/21 08:48 11/24/21 08:48 Lab Results 11/24/21 11/24/21 11/24/21 Range/Units 08:48 08:48 08:48 WBC 4.6 (4.5-11.0) K/mm3 RBC 4.06 (3.65-5.03) M/mm3 Hgb 11.8 (11.8-15.2) gm/dl Hct 37.2 (35.5-45.6) % MCV 91 (84-94) fl MCH 29 (28-32) pg MCHC 32 (32-34) % RDW 20.5 H (13.2-15.2) % Plt Count 122 L (140-440) K/mm3 [place] % (Auto) Head Of Cytogenetics Add Manual Diff Complete Total Counted 100 Seg Neuts % (Manual) 67.0 (40.0-70.0) % Band Neutrophils % 0 % Lymphocytes % (Manual) 11.0 L (13.4-35.0) % Reactive Lymphs % (Man) 0 % Monocytes % (Manual) 16.0 H (0.0-7.3) % Eosinophils % (Manual) 6.0 H (0.0-4.3) % Basophils % (Manual) 0 (0.0-1.8) % Metamyelocytes % 0 % Myelocytes % 0 % Promyelocytes % 0 % Blast Cells % 0 % Nucleated RBC % Not Reportable Seg Neutrophils # Man 3.1 (1.8-7.7) K/mm3 Band Neutrophils # 0.0 K/mm3 Lymphocytes # (Manual) 0.5 L (1.2-5.4) K/mm3 Abs React Lymphs (Man) 0.0 K/mm3 Monocytes # (Manual) 0.7 (0.0-0.8) K/mm3 Eosinophils # (Manual) 0.3 (0.0-0.4) K/mm3 Basophils # (Manual) 0.0 (0.0-0.1) K/mm3 Metamyelocytes # 0.0 K/mm3 Myelocytes # 0.0 K/mm3 Promyelocytes # 0.0 K/mm3 Blast Cells # 0.0 K/mm3 WBC Morphology Not Reportable Hypersegmented Neuts Not Reportable Hyposegmented Neuts Not Reportable Hypogranular Neuts Not Reportable Smudge Cells Not Reportable Toxic Granulation Not Reportable Toxic Vacuolation Not Reportable Dohle Bodies Not Reportable Pelger-Huet Anomaly Not Reportable Red Rods Not Reportable Platelet Estimate Consistent w auto Clumped Platelets Not Reportable Plt Clumps, EDTA Not Reportable Large Platelets Not Reportable Giant Platelets Not Reportable Platelet Satelliting Not Reportable Plt Morphology Comment Not Reportable RBC Morphology Not Reportable Dimorphic RBCs Not Reportable Polychromasia Not Reportable Hypochromasia Not Reportable Poikilocytosis Not Reportable Anisocytosis 1+ Microcytosis Not Reportable Macrocytosis Not Reportable Spherocytes Not Reportable Pappenheimer Bodies Not Reportable Sickle Cells Not Reportable Target Cells Not Reportable Tear Drop Cells Not Reportable Ovalocytes Not Reportable Helmet Cells Not Reportable Ayala-Shipman Bodies Not Reportable [place] Rings Not Reportable Soraya Cells Not Reportable Bite Cells Not Reportable Crenated Cell Not Reportable Elliptocytes Not Reportable Acanthocytes (Spur) Not Reportable Rouleaux Not Reportable Hemoglobin C Crystals Not Reportable Schistocytes Not Reportable Malaria parasites Not Reportable Benji Bodies Not Reportable Hem Pathologist Commnt No PT 15.9 H (12.2-14.9) Sec. INR 1.14 H (0.87-1.13) APTT 36.3 (24.2-36.6) Sec. Sodium 138 (137-145) mmol/L Potassium 3.9 (3.6-5.0) mmol/L Chloride 95.6 L (98-107) mmol/L Carbon Dioxide 24 (22-30) mmol/L Anion Gap 22 mmol/L BUN 55 H (9-20) mg/dL Creatinine 10.5 H (0.8-1.3) mg/dL Estimated GFR 7 ml/min BUN/Creatinine Ratio 5 % Glucose 101 H (75-100) mg/dL Calcium 9.2 (8.4-10.2) mg/dL Total Bilirubin 0.30 (0.1-1.2) mg/dL AST 20 (5-40) units/L ALT 12 (7-56) units/L Alkaline Phosphatase 94 (35-129) units/L Troponin T (0.00-0.029) ng/mL NT-Pro-B Natriuret Pep (0-450) pg/mL Total Protein 7.0 (6.3-8.2) g/dL Albumin 3.4 L (3.9-5) g/dL Albumin/Globulin Ratio 0.9 % Triglycerides (2-149) mg/dL Cholesterol (50-199) mg/dL LDL Cholesterol Direct (50-130) mg/dL HDL Cholesterol (40-59) mg/dL Cholesterol/HDL Ratio % TSH (0.270-4.200) mlU/mL Free T4 (0.76-1.46) ng/dL 11/24/21 11/24/21 Range/Units 08:48 08:48 WBC (4.5-11.0) K/mm3 RBC (3.65-5.03) M/mm3 Hgb (11.8-15.2) gm/dl Hct (35.5-45.6) % MCV (84-94) fl MCH (28-32) pg MCHC (32-34) % RDW (13.2-15.2) % Plt Count (140-440) K/mm3 [place] % (Auto) Add Manual Diff Total Counted Seg Neuts % (Manual) (40.0-70.0) % Band Neutrophils % % Lymphocytes % (Manual) (13.4-35.0) % Reactive Lymphs % (Man) % Monocytes % (Manual) (0.0-7.3) % Eosinophils % (Manual) (0.0-4.3) % Basophils % (Manual) (0.0-1.8) % Metamyelocytes % % Myelocytes % % Promyelocytes % % Blast Cells % % Nucleated RBC % Seg Neutrophils # Man (1.8-7.7) K/mm3 Band Neutrophils # K/mm3 Lymphocytes # (Manual) (1.2-5.4) K/mm3 Abs React Lymphs (Man) K/mm3 Monocytes # (Manual) (0.0-0.8) K/mm3 Eosinophils # (Manual) (0.0-0.4) K/mm3 Basophils # (Manual) (0.0-0.1) K/mm3 Metamyelocytes # K/mm3 Myelocytes # K/mm3 Promyelocytes # K/mm3 Blast Cells # K/mm3 WBC Morphology Hypersegmented Neuts Hyposegmented Neuts Hypogranular Neuts Smudge Cells Toxic Granulation Toxic Vacuolation Dohle Bodies Pelger-Huet Anomaly Red Rods Platelet Estimate Clumped Platelets Plt Clumps, EDTA Large Platelets Giant Platelets Platelet Satelliting Plt Morphology Comment RBC Morphology Dimorphic RBCs Polychromasia Hypochromasia Poikilocytosis Anisocytosis Microcytosis Macrocytosis Spherocytes Pappenheimer Bodies Sickle Cells Target Cells Tear Drop Cells Ovalocytes Helmet Cells Ayala-Shipman Bodies [place] Rings Soraya Cells Bite Cells Crenated Cell Elliptocytes Acanthocytes (Spur) Rouleaux Hemoglobin C Crystals Schistocytes Malaria parasites Benji Bodies Hem Pathologist Commnt PT (12.2-14.9) Sec. INR (0.87-1.13) APTT (24.2-36.6) Sec. Sodium (137-145) mmol/L Potassium (3.6-5.0) mmol/L Chloride (98-107) mmol/L Carbon Dioxide (22-30) mmol/L Anion Gap mmol/L BUN (9-20) mg/dL Creatinine (0.8-1.3) mg/dL Estimated GFR ml/min BUN/Creatinine Ratio % Glucose (75-100) mg/dL Calcium (8.4-10.2) mg/dL Total Bilirubin (0.1-1.2) mg/dL AST (5-40) units/L ALT (7-56) units/L Alkaline Phosphatase (35-129) units/L Troponin T 0.142 H* (0.00-0.029) ng/mL NT-Pro-B Natriuret Pep 67884 H (0-450) pg/mL Total Protein (6.3-8.2) g/dL Albumin (3.9-5) g/dL Albumin/Globulin Ratio % Triglycerides 66 (2-149) mg/dL Cholesterol 128 (50-199) mg/dL LDL Cholesterol Direct 77 (50-130) mg/dL HDL Cholesterol 35 L (40-59) mg/dL Cholesterol/HDL Ratio 3.65 % TSH 0.208 L (0.270-4.200) mlU/mL Free T4 1.11 (0.76-1.46) ng/dL - EKG Data -: EKG Interpreted by Ia EKG shows normal: sinus rhythm, ST-T waves (LVH lateral ST depression) Rate: tachycardia (121) - EKG Data When compared to previous EKG there are: no significant change - Radiology Data Radiology results: report reviewed (Chest x-ray: No acute findings as per radiologist) - Medical Decision Making 36-year-old male presents to the hospital with asymptomatic chronic tachycardia. Patient missed his dialysis today however, does not have any signs of volume overload or hyperkalemia and therefore does not require emergent dialysis today. Patient will be discharged on metoprolol 100 mg twice daily with cardiology follow-up and to follow-up with his sfdc developer regarding next dialysis treatment Previous medical record states that patient abuses cocaine. Patient currently denies cocaine abuse. He was informed that he cannot take metoprolol while abusing cocaine due to adverse reaction hypertension Elevated troponin noted however, chronic given history of end-stage renal disease and when compared to previous record. Patient does not complain of chest pain Critical Care Time: No Critical care attestation.: If time is entered above; I have spent that time in minutes in the direct care of this critically ill patient, excluding procedure time. ED Disposition Clinical Impression: Tachycardia, HTN (hypertension), ESRD (end stage renal disease) Disposition: 01 HOME / SELF CARE / HOMELESS Is pt being admited?: No Condition: Stable Instructions: Hypertension (ED), Sinus Tachycardia, Managing Your Hypertension, Dialysis Additional Instructions: Take the medication as prescribed. Follow-up with your doctor or doctor/clinic provided. Return if symptoms worsen as indicated by your discharge in structions. Referrals: PRIMARY MD SUMMER [Primary Care Provider] - 3-5 Days E[facility] JUNIOR MD [Staff Physician] - 3-5 Days (Machine Riveter) Time of Disposition: 13:15
--- NOTE | 2021-11-24 09:06 | XRay Report ---
CHEST 1 VIEW 11/24/2021 8:47 AM INDICATION / CLINICAL INFORMATION: Tachycardia missed dialysis. COMPARISON: 08/24/2021 FINDINGS: SUPPORT DEVICES: Stable position of central venous catheter HEART / MEDIASTINUM: Stable cardiomegaly. LUNGS / PLEURA: No significant pulmonary or pleural abnormality. No pneumothorax. ADDITIONAL FINDINGS: No significant additional findings. IMPRESSION: 1. No acute findings. Signer Name: Blayne Smith MD Signed: 11/24/2021 9:02 AM Workstation Name: [id number]
[2021-11-24 09:14] LABS: Hematocrit 37.2 % (35.5-45.6); Hemoglobin 11.8 gm/dl (11.8-15.2); Mean Corpuscular HGB Conc 32 % (32-34); Mean Corpuscular Volume 91 fl (84-94); Platelet Count 122 K/mm3 (140-440); Red Blood Count 4.06 M/mm3 (3.65-5.03)
[2021-11-24 09:15] LABS: Albumin 3.4 g/dL (3.9-5); Calcium 9.2 mg/dL (8.4-10.2); Red Cell Distribution Width 20.5 % (13.2-15.2)
[2021-11-24 09:29] LABS: Free T4 (Free Thyroxine) 1.11 ng/dL (0.76-1.46)
[2021-11-24 10:05] LABS: Chol/HDL Ratio 3.65 %
[2021-11-24 10:13] LABS: INR 1.14 (0.87-1.13)
[2021-11-24 10:14] LABS: Partial Thromboplastin Time 36.3 Sec. (24.2-36.6)
[2021-11-24] MEDS ORDERED: METOPROLOL TARTRATE 50 MG TAB PO ONE (11:25)
[2021-11-24 11:36] LABS: Basophils % (Manual) 0 % (0.0-1.8); Total Cells Counted 100
[2021-11-24 11:37] LABS: Anisocytosis 1+; Platelet Estimate Consistent w Auto
[2021-11-24 13:04] VITALS: BP 138/106
--- NOTE | 2021-11-25 10:13 | Electrocardiograph Report ---
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
== END 2021-11-24 13:20 | disposition home or self-care (01) ==
LOC: ED 07:29
DX: R00.0 Tachycardia, unspecified (principal); I12.9 Hypertensive chronic kidney disease with stage 1 through stage 4 chronic kidney disease, or unspecified chronic kidney disease; N18.6 End stage renal disease; J45.909 Unspecified asthma, uncomplicated; Z88.8 Allergy status to other drugs, medicaments and biological substances
CPT/HCPCS: 36415; 71045; 80053; 80061; 83880; 84439; 84443; 84484; 85007; 85025; 85610; 85730; 93005; 99284